=== PATIENT | female | born 1960 | race Caucasian/White ===

== ENCOUNTER 2019-04-14 08:21 | Emergency (ER) | payer MEDICARE, SELFPAY ==
[2019-04-14 08:26] VITALS: BP 159/98; PULSE 87; RESP 16; TEMP 36.8; O2SAT 98; BMI 30.2
[2019-04-14 09:11] VITALS: PULSE 76
--- NOTE | 2019-04-14 09:13 | PC.NURSE ---
Patient states that she fell about 2 months ago and has problems with her upper left ribs posteriorly with pain just below the left scapula. Patient also c/o left shoulder pain with history of torn rotator cuff. Patient describes this as a constant muscle cramp or mel horse. Pain currently rates pain 7/10.
--- NOTE | 2019-04-14 09:18 | PC.NURSE ---
Patient states she occassionally smokes marijuana to help with the pain, this assists better as the stronger narcotic make her ill rather than helping to reduce her pain.
--- NOTE | 2019-04-14 09:19 | PC.NURSE ---
Patient states that she has tried previously prescribed narcotics at home but these only make her sick rather than reducing her pain. She does states she smokes marijuana occasionally and this is the only thing that seems to help so far without causing her to be ill.
[2019-04-14 09:20] VITALS: BP 158/108; PULSE 76; RESP 18
--- NOTE | 2019-04-14 09:22 | XR_ITS ---
WS: [id number] LEFT RIBS, MULTIPLE VIEWS WITH PA CHEST HISTORY: left rib pain, fall 2-3 weeks COMPARISON: 03/20/2019 Lungs and mediastinum: Mild hyperexpansion of the lungs. No pneumothorax or pneumonia. Cardiac silhou ette is moderately enlarged. Prior cardiac valve replacements. RIGHT central line and single lead car diac pacer present. Ribs: No rib fractures or bone destruction identified. XR/XR ribs LT mn 3V w [id number] IMPRESSION: 1. No rib fractures are identified. 2. Cardiomegaly and mild emphysema.
--- NOTE | 2019-04-14 09:23 | ED_ITS ---
HPI - Fall General: Chief Complaint: Extremity Injury, Upper Stated Complaint: fall Time Seen by Provider: 04/14/19 08:26 History of Present Illness: Associated symptoms-after fall: Denies abdominal pain or headache(s) Review of Systems General: Reports: 10 or more systems reviewed and unremarkable except in HPI and below Const: Denies: fever or chills Eyes: Denies: change in vision ENMT: Denies: nasal discharge or facial/sinus pain Card: Denies: palpitations or shortness of breath when lying down Resp: Denies: shortness of breath GI: Denies: abdominal pain : Denies: difficulty urinating Musc: Reports: other (left posterior chest wall pain) Skin/Breast: Denies: rash Neuro: Denies: headache John/Lymph: Denies: easy bleeding PFSH ED PFSH: Statuses (acute, chronic, etc) shown below reflect problem list status as previously entered and may not be historically accurate Social History Smoking and tobacco status: former smoker Physical Exam Const: COMMON NORMALS: no apparent distress GENERAL APPEARANCE: cooperative ORIENTATION/CONSCIOUSNESS: Yes awake, Yes oriented to person and Yes oriented to place HENMT: COMMON NORMALS: normocephalic, EAC's normal and external nose normal HEAD & SCALP: normocephalic FACE & SINUS: normal facial exam NOSE: external nose normal; no nasal discharge EXTERNAL AUDITORY CANAL: EAC's normal THROAT: posterior oropharynx normal Eye: COMMON NORMALS: PERRL and EOMs intact bilaterally PUPIL: Yes PERRL Neck/C-Spine: COMMON NORMALS: full ROM GENERAL: Yes normal visual inspection Chest: COMMONS NORMALS: inspection of chest normal and palpation of chest normal (left mid posterior rib pain) Resp: COMMON NORMALS: normal respiratory effort and clear to auscultation bilaterally AUSCULTATION: clear to auscultation bilaterally Cardio: COMMON NORMALS: regular rate and regular rhythm RATE: regular rate RHYTHM: regular rhythm GI: COMMON NORMALS: normal to inspection, nondistended, normoactive bowel sounds : COMMON NORMALS: Yes no CVA tenderness BLADDER/KIDNEY EXAM: Yes no CVA tenderness Back/Pelvis: COMMON NORMALS: no CVA tenderness THORACIC SPINE/UPPER BACK: No thoracic spinal tenderness Extremity: COMMON NORMALS: normal to inspection Neuro: SENSORIUM/ORIENTATION: Yes oriented to person and Yes oriented to place Psych: COMMON NORMALS: mental status grossly normal Skin: COMMON NORMALS: no rashes or lesions noted GENERAL SKIN EXAM: no rashes or lesions noted Course Vital Signs: Vital signs: Vital Signs Temperature 98.2 F 04/14/19 08:26 Pulse Rate 76 04/14/19 09:20 Respiratory Rate 18 04/14/19 09:20 Blood Pressure 158/108 04/14/19 09:20 Pulse Oximetry 98 04/14/19 08:26 MDM - Fall MDM Narrative: Medical decision making narrative: 58-year-old female comes in today for complaints of left posterior rib pain. Exam notes some tenderness to the left posterior ribs, normal breath sounds, no flailing or subcutaneous crepitus. Differential diagnosis includes compression fracture of spine, ring fracture, pneumothorax, pneumonia. Reviewed exam with patient noting the x-rays were normal. Recommend patient follow-up with primary care or Differential Diagnosis: Fall Differential Diagnosis: Likely compression fracture Discharge Plan Discharge Patient Disposition: Home, Self-Care Prescriptions: No Action metoprolol tartrate 100 mg Tablet 100 mg PO BID RF: 0 [place] 5-325 mg Tablet 1 tab PO Q6H PRN (Reason: Pain) RF: 0 lisinopril 20 mg Tablet 20 mg PO DAILY RF: 0 diltiazem HCl 360 mg Capsule,Extended Release 24 Hr 360 mg PO DAILY RF: 0 Aspir-81 81 mg Tablet,Delayed Release (Dr/Ec) 81 mg PO DAILY RF: 0 warfarin 3 mg Tablet See Rx Instructions .ROUTE .COMPLEX RF: 0 levothyroxine 50 mcg Tablet 50 mcg PO DAILY RF: 0 ibuprofen 600 mg Tablet 600 mg PO Q6H PRN (Reason: Pain) RF: 0 Crestor 10 mg Tablet 10 mg PO DAILY RF: 0 Referrals: Dominick Abernathy MD [Primary Care Provider] - Discharge Diet: Regular Discharge Activity: Resume usual activity Coding Level of Care Code ED Stroke Program Coordinator for Magen Brown Exam Problem Focused
[2019-04-14 10:35] VITALS: RESP 18
== END 2019-04-14 10:35 | disposition home or self-care (01) ==
PROVIDERS: Emergency Provider Nurse Practitioner Family; Family Provider Internal Medicine; PCP Internal Medicine
DX: R07.81 Pleurodynia (principal); Z87.891 Personal history of nicotine dependence
CPT/HCPCS: 71101; 99281

== ENCOUNTER 2019-06-18 10:39 | Emergency (ER) | payer MEDICARE, SELFPAY ==
[2019-06-18 11:03] VITALS: BP 131/86; PULSE 73; RESP 16; TEMP 37.1; O2SAT 99; BMI 31.1
--- NOTE | 2019-06-18 11:16 | ECG_ITS ---
Measurements Intervals [place] Rate: 67 P: ME: 0 QRS: 121 QRSD: 161 T: -25 QT: 443 QTc: 471 ELECTRONIC VENTRICULAR PACEMAKER ABNORMAL RHYTHM ECG Compared to ECG 10/18/2015 14:06:09 Atrial-paced complex(es) or rhythm no longer present ST (T wave) deviation no longer present Electronically Signed On 06-18-2019 19:50:47 CDT by Vladimir Cuellar M.D. [email or web address]
--- NOTE | 2019-06-18 11:16 | CTR_ITS ---
PROCEDURE INFORMATION: Exam: CT Head Without Contrast Exam date and time: 06/18/2019 12:26 PM Age: 58 years old Clinical indication: Dizziness and visual disturbance; Prior surgery; Surgery date: 6+ months; Surgery type: Shunt; Additional info: Symptoms of acute stroke TECHNIQUE: Imaging protocol: Computed tomography of the head without contrast. Total DLP: 778.07 mGy-cm Radiation optimization: All CT scans at this facility use at least one of these dose optimization techniques: automated exposure control; mA and/or kV adjustment per patient size (includes targeted exams where dose is matched to clinical indication); or iterative reconstruction. COMPARISON: CT head wo con* [id number] 01/12/2015 11:13 AM FINDINGS: Limitations: Motion artifact limits the sensitivity of this examination. Brain: There is no acute intracranial hemorrhage. No extra-axial fluid collection. No evidence of acute infarct. Rey white differentiation is intact. There is no evidence of mass. There is no mass effect or midline shift. Ventricles: Unchanged position of right shunt catheter traversing frontal horn of right lateral ventricle and 3rd ventricle with tip at level of suprasellar cistern. Ventricles are stable and nondilated. Bones/joints: No acute fracture. There is right frontal joey hole for the shunt catheter. Sinuses: There is minimal mucosal thickening in inferior aspect of right frontal sinus. Mastoid air cells: No significant mastoid effusion. Soft tissues: Unremarkable as visualized. CT/CT head wo con* [id number] IMPRESSION: No evidence of acute intracranial abnormality. No evidence of acute infarct. No acute hemorrhage. [place] Stroke Program Early CT Score (ASPECTS) = 10. Radiation Dose CTDIVOL = (mGy): DLP = 778.07 (mGy-cm)
--- NOTE | 2019-06-18 12:14 | ED_ITS ---
Entered by Mckayla Willis, acting as scribe for Serafin Brennan DO Jun 18, 2019 10:39 HPI - Neuro Symptoms/Deficit General: Chief Complaint: Neuro Symptoms/Deficit Stated Complaint: DIZZY Time Seen by Provider: 06/18/19 12:42 History of Present Illness: HPI Narrative: 58 yo female presents with dizziness. Pt states that she woke up 5 days ago in the middle of the night with dizziness. Pt states that she has felt like she is drunk. Pt states that this has all been continuous for 5 days. Pt states that she has a shunt in her head and is worried that it is clogged. Pt states that she got bit by a bug about 5 days ago on her low back. Onset (ago): day(s) (5 days) Associated symptoms: Deny chest pain, headache(s), malaise, nausea, syncope, vertigo or vomiting Review of Systems Const: Denies: fever, chills, body aches, fatigue, malaise or night sweats Eyes: Denies: change in vision or blurry vision ENMT: Denies: throat pain, oral sores/lesions, dental pain, nasal discharge or nasal congestion Card: Denies: chest pain, palpitations, irregular heart rhythm, edema, syncope, shortness of breath on exertion, shortness of breath when lying down or leg pain with exertion Resp: Denies: shortness of breath, productive cough, non-productive cough or wheezing GI: Denies: abdominal pain, nausea, vomiting, vomiting blood, coffee grounds in vomit, difficulty swallowing, heartburn/indigestion, diarrhea, constipation, cramping, blood in stool or black tarry stool : Denies: flank pain, painful urination, urinary frequency, urinary urgency, urinary incontinence or blood in urine Musc: Denies: neck pain, back pain, extremity pain, extremity swelling, joint pain or joint swelling Skin/Breast: Denies: rash, itching or redness Neuro: Reports: dizziness; Denies: headache, numbness in extremities, weakness in extremities, changes in sensation, lack of coordination, difficulty walking, frequent falls, vertigo or confusion Psych: Denies: anxiety, depression, loss of interest, visual hallucinations, auditory hallucinations, suicidal ideation or homicidal ideation Endo: Denies: excessive urination, excessive thirst, tired all the time or cold intolerance John/Lymph: Denies: easy bruising, easy bleeding, petechiae, enlarged lymph nodes or tender lymph nodes PFSH ED PFSH: Medical History (Updated 06/18/19 @ 13:38 by Serafin Brennan DO) Afib Cancer of cervix Cardiomyopathy Cervical myopathy CHF (congestive heart failure) Degenerative cervical spinal stenosis Essential (primary) hypertension Hyperlipemia Hypothyroidism Pacemaker Surgical History (Updated 06/18/19 @ 13:14 by Serafin Brennan DO) Aortic valve prosthesis present History of prosthetic tricuspid valve replacement Mitral valve replaced MOSAIC FLOOR LAYER (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) shunt status Social History Smoking and tobacco status: former smoker Alcohol intake: current Physical Exam Const: COMMON NORMALS: average body habitus, oriented x3 and alert GENERAL APPEARANCE: cooperative, comfortable, well kempt and well developed NUTRITIONAL APPEARANCE: obese ORIENTATION/CONSCIOUSNESS: Yes awake, Yes oriented to person and Yes oriented to place HENMT: COMMON NORMALS: normocephalic, head/scalp atraumatic, EAC's normal, TM's normal bilaterally, external nose normal, moist oral mucous membranes and oropharynx normal HEAD & SCALP: normocephalic and atraumatic NOSE: external nose normal EXTERNAL AUDITORY CANAL: EAC's normal TYMPANIC MEMBRANE: TM's normal bilaterally MOUTH: oral and palatal mucosa normal, lip normal and tongue normal THROAT: posterior oropharynx normal and tonsils normal Eye: COMMON NORMALS: PERRL, EOMs intact bilaterally, conjunctivae normal and no scleral icterus CONJUNCTIVA: Yes conjunctivae normal PUPIL: Yes PERRL Neck/C-Spine: COMMON NORMALS: full ROM, no lymphadenopathy, supple, no meningeal signs and thyroid normal THYROID: thyroid normal and asymmetrical Lymph: LYMPHATIC: no lymphadenopathy noted Resp: COMMON NORMALS: normal respiratory effort, no retractions, no use of accessory muscles and clear to auscultation bilaterally AUSCULTATION: clear to auscultation bilaterally Cardio: COMMON NORMALS: regular rate and regular rhythm RATE: regular rate RHYTHM: regular rhythm OTHER: Mechanical heart sounds secondary to multiple mechanical valves aortic mitral and tricuspid GI: COMMON NORMALS: normal to inspection, nondistended, normoactive bowel sounds, soft to palpation and no hepatosplenomegaly PALPATION: Yes soft and Yes no hepatosplenomegaly : COMMON NORMALS: Yes no CVA tenderness BLADDER/KIDNEY EXAM: Yes no CVA tenderness Back/Pelvis: COMMON NORMALS: no CVA tenderness LUMBAR SPINE/LOWER BACK: Yes normal to inspection Extremity: COMMON NORMALS: no clubbing, cyanosis or edema, no calf tenderness and no pedal edema Neuro: COMMON NORMALS: oriented x3 SENSORIUM/ORIENTATION: Yes alert, Yes oriented to person and Yes oriented to place MENINGEAL SIGNS: Yes no meningeal signs Psych: APPEARANCE: Yes well kempt Skin: COMMON NORMALS: no rashes or lesions noted and skin turgor normal GENERAL SKIN EXAM: no rashes or lesions noted and turgor normal Course ED course: Patient is feeling somewhat better will discharge home believe she has a labyrinthitis start meclizine 25 every 6 hours as needed Vital Signs: Vital signs: Vital Signs Temperature 98.7 F 06/18/19 11:03 Pulse Rate 81 06/18/19 13:58 Respiratory Rate 17 06/18/19 13:58 Blood Pressure 131/86 06/18/19 11:03 Pulse Oximetry 96 06/18/19 13:58 MDM - Neuro Symptoms/Deficit Lab Data: Labs: Lab Results 06/18/19 06/18/19 06/18/19 Range/Units 12:05 12:05 12:05 WBC 8.7 (4.0-10.0) 10^3/ uL RBC 4.14 (4.1-5.3) 10^6/u L Hgb 12.4 (11.5-15.3) g/dL Hct 38.7 (37.0-47.0) % MCV 93.5 (81-99) fL MCH 30.0 (28.0-34.0) pg MCHC 32.0 (30.0-36.0) g/dL RDW 14.4 (12.1-15.1) % Plt Count 291 (130-400) 10^3/c mm MPV 10.2 (7.4-10.4) fL Neut % (Auto) 66.8 % Lymph % (Auto) 22.2 % Sunflower % (Auto) 7.7 % Eos % (Auto) 2.0 % Baso % (Auto) 0.8 % Neut # (Auto) 5.8 (1.8-7.7) 10^3/u L Lymph # (Auto) 1.9 (0.8-4.8) 10^3/u L Sunflower # (Auto) 0.7 (0.2-0.9) 10^3/u L Eos # (Auto) 0.2 (0.0-0.8) 10^3/u L Baso # (Auto) 0.1 (0.0-0.1) 10^3/u L Nucleated RBC % (a uto) 0 % Nucleated RBCs # 0.0 /100WBC PT 28.50 H (10.5-13.3) SECO NDS INR 2.57 H (0.8-1.2) APTT 41.2 H (23.9-36.7) SECO NDS Sodium 137 (136-145) mmol/L Potassium 4.1 (3.5-5.1) mmol/L Chloride 100 (98-107) mmol/L Carbon Dioxide 27 (22-29) mmol/L Anion Gap 14.1 (5-19) BUN 16 (8-23) mg/dL Creatinine 0.9 (0.5-0.9) mg/dL GFR Calculation 63.9 L (90-130) mL/min Glucose 85 (65-115) mg/dL Calculated Osmolal ity 280 L (285-295) mOsm/k g Calcium 9.8 (8.5-10.5) mg/dL Total Bilirubin 0.8 (0.15-1.2) mg/dL AST 21 (0-32) U/L ALT 15 (0-33) U/L Alkaline Phosphata se 78 (35-105) IU/L Total Protein 7.3 (6.6-8.7) g/dL Albumin 4.4 (3.5-5.2) g/dL Globulin 2.9 (1.3-4.6) g/dL Urine Color (Yellow) Urine Appearance (CLEAR) Urine pH (5-7) Ur Specific Gravit y (1.005-1.030) Urine Protein (Negative) Urine Glucose (UA) (Normal) Urine Ketones (Negative) Urine Blood (Negative) Urine Nitrate (Negative) Urine Bilirubin (NEGATIVE) Urine Urobilinogen (Negative) mg/dL Ur Leukocyte Alice ase (Negative) Urine Opiates Scre en (Negative) ng/mL Ur Barbiturates Sc reen (Negative) ng/mL Ur Phencyclidine S crn (Negative) ng/mL Ur Amphetamines Sc reen (Negative) ng/mL U Benzodiazepines Scrn (Negative) ng/mL Urine Cocaine Scre en (Negative) ng/mL U Marijuana (THC) Screen (Negative) ng/mL 06/18/19 06/18/19 Range/Units 12:42 12:42 WBC (4.0-10.0) 10^3/ uL RBC (4.1-5.3) 10^6/u L Hgb (11.5-15.3) g/dL Hct (37.0-47.0) % MCV (81-99) fL MCH (28.0-34.0) pg MCHC (30.0-36.0) g/dL RDW (12.1-15.1) % Plt Count (130-400) 10^3/c mm MPV (7.4-10.4) fL Neut % (Auto) % Lymph % (Auto) % Sunflower % (Auto) % Eos % (Auto) % Baso % (Auto) % Neut # (Auto) (1.8-7.7) 10^3/u L Lymph # (Auto) (0.8-4.8) 10^3/u L Sunflower # (Auto) (0.2-0.9) 10^3/u L Eos # (Auto) (0.0-0.8) 10^3/u L Baso # (Auto) (0.0-0.1) 10^3/u L Nucleated RBC % (a uto) % Nucleated RBCs # /100WBC PT (10.5-13.3) SECO NDS INR (0.8-1.2) APTT (23.9-36.7) SECO NDS Sodium (136-145) mmol/L Potassium (3.5-5.1) mmol/L Chloride (98-107) mmol/L Carbon Dioxide (22-29) mmol/L Anion Gap (5-19) BUN (8-23) mg/dL Creatinine (0.5-0.9) mg/dL GFR Calculation (90-130) mL/min Glucose (65-115) mg/dL Calculated Osmolal ity (285-295) mOsm/k g Calcium (8.5-10.5) mg/dL Total Bilirubin (0.15-1.2) mg/dL AST (0-32) U/L ALT (0-33) U/L Alkaline Phosphata se (35-105) IU/L Total Protein (6.6-8.7) g/dL Albumin (3.5-5.2) g/dL Globulin (1.3-4.6) g/dL Urine Color Yellow (Yellow) Urine Appearance Clear (CLEAR) Urine pH 6.5 (5-7) Ur Specific Gravit y 1.015 (1.005-1.030) Urine Protein Neg (Negative) Urine Glucose (UA) Norm (Normal) Urine Ketones Negative (Negative) Urine Blood Neg (Negative) Urine Nitrate Negative (Negative) Urine Bilirubin Neg (NEGATIVE) Urine Urobilinogen Norm (Negative) mg/dL Ur Leukocyte Alice ase Negative (Negative) Urine Opiates Scre en Negative (Negative) ng/mL Ur Barbiturates Sc reen Negative (Negative) ng/mL Ur Phencyclidine S crn Negative (Negative) ng/mL Ur Amphetamines Sc reen Negative (Negative) ng/mL U Benzodiazepines Scrn Negative (Negative) ng/mL Urine Cocaine Scre en Negative (Negative) ng/mL U Marijuana (THC) Screen Positive H (Negative) ng/mL Discharge Plan Discharge Patient Disposition: Home, Self-Care Clinical Impression: Labyrinthitis Condition: Stable Prescriptions: New meclizine 25 mg tablet 25 mg PO QID PRN (Reason: dizziness) Qty: 20 RF: 0 No Action warfarin 1 mg tablet 1 mg PO DAILY RF: 0 Crestor 10 mg tablet 10 mg PO DAILY Qty: 90 RF: 3 metoprolol tartrate 100 mg Tablet 100 mg PO BID RF: 0 lisinopril 20 mg Tablet 20 mg PO DAILY RF: 0 diltiazem HCl 360 mg Capsule,Extended Release 24 Hr 360 mg PO DAILY RF: 0 aspirin [Aspir-81] 81 mg Tablet,Delayed Release (Dr/Ec) 81 mg PO DAILY RF: 0 warfarin 3 mg Tablet See Rx Instructions .ROUTE .COMPLEX RF: 0 levothyroxine 50 mcg Tablet 50 mcg PO DAILY RF: 0 ibuprofen 600 mg Tablet 600 mg PO Q6H PRN (Reason: Pain) RF: 0 Discharge Orders: Discharge Order (Routine); Ordered 06/18/19 Ordered By: Serafin Brennan Referrals: Dominick Abernathy MD [Primary Care Provider] - Discharge Date/Time: 06/18/19 13:59 Coding Level of Care Code ED Machine I Engraver for Chg Fwd Exam Comprehensive The documentation recorded by the Lazaro nieto Kialy, accurately reflects the service I personally performed and the decisions made by Mika loya Curtis L, Jun 18, 2019 10:39
[2019-06-18 12:16] LABS: Basophils # 0.1 10^3/uL (0.0-0.1); Basophils % 0.8 %; Eosinophils # 0.2 10^3/uL (0.0-0.8); Hematocrit 38.7 % (37.0-47.0); Hemoglobin 12.4 g/dL (11.5-15.3); Lymphocytes # 1.9 10^3/uL (0.8-4.8); Lymphocytes % 22.2 %; Mean Corpuscular Volume 93.5 fL (81-99); Mean Platelet Volume 10.2 fL (7.4-10.4); Monocytes # 0.7 10^3/uL (0.2-0.9); Monocytes % 7.7 %; Neutrophils # 5.8 10^3/uL (1.8-7.7); Neutrophils % 66.8 %; Nucleated Red Blood Cells % 0 %; Platelet Count 291 10^3/cmm (130-400); Red Blood Count 4.14 10^6/uL (4.1-5.3); Red Cell Distribution Width 14.4 % (12.1-15.1); White Blood Count 8.7 10^3/uL (4.0-10.0)
[2019-06-18 12:22] VITALS: RESP 18
[2019-06-18 12:27] LABS: INR 2.57 (0.8-1.2)
[2019-06-18 12:28] LABS: Partial Thromboplastin Time 41.2 SECONDS (23.9-36.7)
[2019-06-18 12:33] LABS: Alanine Aminotransferase 15 U/L (0-33); Albumin Level 4.4 g/dL (3.5-5.2); Alkaline Phosphatase 78 IU/L (35-105); Anion Gap 14.1 (5-19); Aspartate Amino Transferase 21 U/L (0-32); Blood Urea Nitrogen 16 mg/dL (8-23); Calcium 9.8 mg/dL (8.5-10.5); Carbon Dioxide 27 mmol/L (22-29); Chloride 100 mmol/L (98-107); Globulin 2.9 g/dL (1.3-4.6); Glomerular Filtration Rate 63.9 mL/min (90-130); Glucose 85 mg/dL (65-115); Osmolality Calculated 280 mOsm/kg (285-295); Potassium 4.1 mmol/L (3.5-5.1); Sodium 137 mmol/L (136-145); Total Bilirubin 0.8 mg/dL (0.15-1.2); Total Protein 7.3 g/dL (6.6-8.7)
[2019-06-18 12:58] LABS: Add Urine Microscopic? NO
[2019-06-18 13:02] LABS: Urine Appearance Clear (CLEAR); Urine Color Yellow (Yellow); pH Urine 6.5 (5-7)
[2019-06-18 13:03] LABS: Bilirubin Urine Neg (NEGATIVE); Blood Urine Neg (Negative); Glucose Urine UA Norm (Normal); Ketones Urine Negative (Negative); Leukocyte Esterase Urine Negative (Negative); Nitrate Urine Negative (Negative); Protein Urine Neg (Negative); Specific Gravity, Urine 1.015 (1.005-1.030); Urobilinogen Urine Norm (Negative)
[2019-06-18 13:09] LABS: Amphetamines Screen Urine Negative (Negative); Barbiturates Screen Urine Negative (Negative); Benzodiazepines Screen Urine Negative (Negative); Cocaine Screen Urine Negative (Negative); Opiate Screen Urine Negative (Negative); PCP Screen Urine Negative (Negative); THC Screen Urine Positive (Negative)
[2019-06-18 13:58] VITALS: PULSE 81; RESP 17; O2SAT 96
== END 2019-06-18 13:59 | disposition home or self-care (01) ==
PROVIDERS: Emergency Medicine; Emergency Provider Family Medicine; Family Provider Internal Medicine; PCP Internal Medicine
DX: H83.09 Labyrinthitis, unspecified ear (principal); I48.91 Unspecified atrial fibrillation; I42.9 Cardiomyopathy, unspecified; I11.0 Hypertensive heart disease with heart failure; I50.9 Heart failure, unspecified; E78.5 Hyperlipidemia, unspecified; E03.9 Hypothyroidism, unspecified; E66.9 Obesity, unspecified; Z68.31 Body mass index [BMI] 31.0-31.9, adult; Z79.01 Long term (current) use of anticoagulants; Z87.891 Personal history of nicotine dependence; Z95.0 Presence of cardiac pacemaker; Z95.2 Presence of prosthetic heart valve; Z98.2 Presence of cerebrospinal fluid drainage device
CPT/HCPCS: 12345; 36415; 70450; 80053; 80307; 81003; 85025; 85610; 85730; 93005; 99283; 99284

== ENCOUNTER 2019-06-20 10:10 | Emergency (ER) | payer MEDICARE, SELFPAY ==
[2019-06-20 10:20] VITALS: BP 137/82; PULSE 71; RESP 16; TEMP 36.6; O2SAT 97; BMI 31.1
--- NOTE | 2019-06-20 10:30 | XR_ITS ---
WS: [id number] Right hand, 3 views, 06/20/2019 Clinical Data: trauma Comparison: Right hand, 01/28/2019. Findings: There is a comminuted fracture of the distal portion of the right fifth metacarpal with ventral angu lation. The remainder the metacarpals is normal. The phalanges and carpal bones are unremarkable. The re is soft tissue swelling over the fracture site. XR/XR hand RT min 3V* [id number] Impression: Fracture of distal right fifth metacarpal.
--- NOTE | 2019-06-20 10:31 | ED_ITS ---
HPI - Extremity Problem General: Chief complaint: Extremity Injury, Upper Stated complaint: pinky finger on right hand Time Seen by Provider: 06/20/19 10:11 History of Present Illness: HPI Narrative: Patient states that she take a rolled up newspaper was trying to SWAT her dog last night and she hit a hard object with the side of her right hand and now she has pain swelling limited range of motion MD Complaint: extremity pain and extremity swelling Onset (ago): hour(s) Pain Consistency: constant Location: right and upper extremity Severity scale (1-10): 5 Quality: aching Radiation: proximal Relieving factors: immobilization Exacerbating factors: range of motion Associated symptoms: Reports no associated symptoms; Deny chest pain, fever(s) or rash Review of Systems Const: Denies: fever, chills or body aches Eyes: Denies: change in vision or blurry vision ENMT: Denies: throat pain or nasal congestion Card: Denies: chest pain or shortness of breath on exertion Resp: Denies: shortness of breath, productive cough or non-productive cough GI: Denies: abdominal pain, nausea or vomiting Musc: Reports: extremity pain (Right hand medial aspect base of the pinky finger), extremity swelling and limited range of motion Skin/Breast: Denies: rash Neuro: Denies: headache Psych: Denies: anxiety or depression John/Lymph: Denies: easy bruising PFSH ED PFSH: Medical History (Updated 06/18/19 @ 13:38 by Serafin Brennan DO) Afib Cancer of cervix Cardiomyopathy Cervical myopathy CHF (congestive heart failure) Degenerative cervical spinal stenosis Essential (primary) hypertension Hyperlipemia Hypothyroidism Pacemaker Surgical History (Updated 06/18/19 @ 13:14 by Serafin Brennan DO) Aortic valve prosthesis present History of prosthetic tricuspid valve replacement Mitral valve replaced SURGICAL SERVICES ASSISTANT (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) shunt status Social History Smoking and tobacco status: former smoker Alcohol intake: current Physical Exam Const: COMMON NORMALS: no apparent distress, average body habitus and oriented x3 HENMT: COMMON NORMALS: normocephalic HEAD & SCALP: normal to inspection and normocephalic FACE & SINUS: normal facial exam Eye: COMMON NORMALS: conjunctivae normal GENERAL EYE: normal appearance of both eyes CONJUNCTIVA: Yes conjunctivae normal Neck/C-Spine: COMMON NORMALS: no JVD Chest: COMMONS NORMALS: inspection of chest normal Resp: COMMON NORMALS: normal respiratory effort and clear to auscultation bilaterally AUSCULTATION: clear to auscultation bilaterally Cardio: COMMON NORMALS: no JVD, regular rate and regular rhythm RATE: regular rate RHYTHM: regular rhythm GI: COMMON NORMALS: normal to inspection, nondistended, normoactive bowel sounds Extremity: COMMON NORMALS: normal to inspection and full ROM RIGHT UPPER EXTREMITY: Yes hand & digits (Right hand swollen and about the fifth metacarpal limited range of motion of the fifth finger tenderness to the phalangeal metacarpal joint does have some bruising and about the hand and the wrist. No wrist pain) Neuro: COMMON NORMALS: oriented x3 Course Vital Signs: Vital signs: Vital Signs Temperature 98 F 06/20/19 10:20 Pulse Rate 71 06/20/19 10:20 Respiratory Rate 16 06/20/19 10:20 Blood Pressure 137/82 06/20/19 10:20 Pulse Oximetry 97 06/20/19 10:20 Discharge Plan Discharge Prescriptions: No Action warfarin 1 mg tablet 1 mg PO DAILY RF: 0 Crestor 10 mg tablet 10 mg PO DAILY Qty: 90 RF: 3 metoprolol tartrate 100 mg Tablet 100 mg PO BID RF: 0 lisinopril 20 mg Tablet 20 mg PO DAILY RF: 0 diltiazem HCl 360 mg Capsule,Extended Release 24 Hr 360 mg PO DAILY RF: 0 aspirin [Aspir-81] 81 mg Tablet,Delayed Release (Dr/Ec) 81 mg PO DAILY RF: 0 warfarin 3 mg Tablet See Rx Instructions .ROUTE .COMPLEX RF: 0 levothyroxine 50 mcg Tablet 50 mcg PO DAILY RF: 0 ibuprofen 600 mg Tablet 600 mg PO Q6H PRN (Reason: Pain) RF: 0 meclizine 25 mg tablet 25 mg PO QID PRN (Reason: dizziness) Qty: 20 RF: 0 Coding Level of Care Code ED Drug Safety Coordinator for Magen Brown
--- NOTE | 2019-06-20 12:04 | PC.NURSE ---
patient splinted with ulna splint, patient tolerated well
[2019-06-20 12:11] VITALS: BP 134/79; PULSE 69; RESP 18; O2SAT 97
--- NOTE | 2019-06-20 13:28 | DCPLANNER ---
distribution operations manager was asked to schedule a follow up appointment for patient with ortho. distribution operations manager called the ortho clinic, spoke with Yessy, gave clinic patients information. distribution operations manager was told that patients information would be printed and reviewed. Clinic will call child welfare caseworker and patient with appointment information.
--- NOTE | 2019-06-21 09:27 | DCPLANNER ---
Patient has a follow up appointment scheduled for Friday, June 21, 2019 at 1:[address] Robledo. Clinic will call patient with appointment information.
--- NOTE | 2019-06-22 10:15 | DCPLANNER ---
Patient did attend appointment scheduled for 06.21.19 with ortho.
== END 2019-06-20 12:14 | disposition home or self-care (01) ==
PROVIDERS: Emergency Provider Nurse Practitioner Family; Family Provider Internal Medicine; PCP Internal Medicine
DX: S60.221A Contusion of right hand, initial encounter (principal); S60.211A Contusion of right wrist, initial encounter; M79.644 Pain in right finger(s); R22.31 Localized swelling, mass and lump, right upper limb; I48.91 Unspecified atrial fibrillation; I11.0 Hypertensive heart disease with heart failure; I50.9 Heart failure, unspecified; E78.5 Hyperlipidemia, unspecified; E03.9 Hypothyroidism, unspecified; Z87.891 Personal history of nicotine dependence; Z95.2 Presence of prosthetic heart valve; Z95.0 Presence of cardiac pacemaker; Z79.01 Long term (current) use of anticoagulants; W22.8XXA Striking against or struck by other objects, initial encounter
CPT/HCPCS: 12345; 73130; 99281; 99283

== ENCOUNTER 2019-06-21 14:56 | Outpatient (CLI) | payer MEDICARE, SELFPAY | END 2019-06-21 14:57 | disposition home or self-care (01) | LOC: SPT 14:56 | PROVIDERS: Family Provider Internal Medicine; PCP Internal Medicine; Visit Provider Specialist | DX: Z46.89 Encounter for fitting and adjustment of other specified devices (principal); S62.356D Nondisplaced fracture of shaft of fifth metacarpal bone, right hand, subsequent encounter for fracture with routine healing; X58.XXXD Exposure to other specified factors, subsequent encounter | CPT/HCPCS: L3918 ==

== ENCOUNTER 2019-08-14 10:08 | Emergency (ER) | payer MEDICARE, SELFPAY ==
[2019-08-14 10:13] VITALS: BP 154/91; PULSE 90; RESP 16; TEMP 36.8; O2SAT 97; BMI 33.0
--- NOTE | 2019-08-14 10:37 | CT_ITS ---
WS: [id number] CT abdomen pelvis w con* [id number] REASON FOR EXAM: abd pain IV CONTRAST ADMINISTERED: Omni 395 cc. TOTAL EXAM DLP: 997.[address] scans at [facility] use at least one of these dose optimization techniques: automat ed exposure control; mA and/or kV adjustment per patient size (includes targeted exams where dose is matched to clinical indication); or iterative reconstruction. FINDINGS: Diastases recti is seen in the lower chest midline. The paraumbilical area shows large herniation similar to the previous exam with a nodular density in the hernia similar to that previous exam exposed 02/13/2018. The gallbladder is been removed comparison to the previous exam the common bile duct is mildly dilate d down to the head of the pancreas. This measured 1.9 cysts centimeters. Mass is not seen in the sphi ncter of John area but there is marked dilatation a consideration MRCP evaluated with weight these ch anges further is recommended. The pancreas shows mild atrophy. Arteriosclerotic changes in the pancre atic arteries are seen. The liver appears to be normal. No dilatation of the ductal system is seen in the liver. The adrenal glands are both normal. 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 The aorta inferior vena cava are normal. [place] the spleen show no abnormality The lumbar spine and pelvis appear to be essentially normal. The pelvis itself show normal large bowel the bladder is somewhat contracted but appear to be slightl y thickened wall. CT/CT abdomen pelvis w con* [id number] IMPRESSION: Multiple ventral and periumbilical abdominal wall hernias. With no obstruction. There is evidence of fat in the hernias. Horseshoe kidneys The common bile duct is markedly dilated increased and increase in size since p revious exam we do not noted an obstructing lesion but would recommend an MRCP for further evaluation.
--- NOTE | 2019-08-14 10:39 | W.ED.ABDPA2 ---
HPI - Abdominal Pain General: Chief Complaint: Abdominal Pain Stated Complaint: ABD PAIN Time Seen by Provider: 08/14/19 10:17 History of Present Illness: HPI narrative: 58-year-old female presents with complaints of abdominal pain. She says today she said she was working on the back of her truck she slipped off the edge of the tailgate getting down when she landed on her feet she kind of jolted and felt a tearing sensation in her abdomen. The rest of the day she seemed okay but then this morning she said she is noticed black stools she had thought last night she was constipated with the abdominal discomfort and took some MiraLAX he denies taking anything else. She is on Coumadin because of several cardiac valvuloplasty she has had she cites an aortic and mitral valve states she has had a third valve as well not sure if it is correct tricuspid valve. She also reports a low-grade temp. She denies any respiratory difficulty. She has had multiple previous abdominal wall hernias, incisional and umbilical and she still does have an umbilical hernia. She denies dysuria urgency or frequency. MD elicited complaint: abdominal pain Pertinent past history: constipation Onset (ago): hour(s) (12-15) Pain Consistency: constant Location: Periumbilical Severity: moderate Quality: cramping Radiation: none Migration to: no migration Exacerbating factors: movement Relieving factors: rest Associated Symptoms: Reports anorexia, bloating, constipation and other (Black stools); Denies chills, diarrhea, dyspepsia, dysuria, fever(s), fecal incontinence, loose stools, melena and nausea Review of Systems Const: Denies: fever, chills, body aches, change in appetite, fatigue or malaise ENMT: Denies: throat pain, ear pain, nasal discharge or nasal congestion Card: Denies: chest pain, edema, shortness of breath on exertion or shortness of breath when lying down Resp: Denies: shortness of breath, productive cough or non-productive cough GI: Reports: abdominal pain, constipation, bloating and other (Black stools); Denies: nausea, diarrhea, fecal incontinence or black tarry stool : Denies: flank pain, difficulty urinating, painful urination, urinary frequency or urinary urgency Skin/Breast: Denies: rash or itching PFSH ED PFSH: Medical History (Updated 08/14/19 @ 13:42 by Serafin Brennan DO) Afib Cancer of cervix Cardiomyopathy Cervical myopathy CHF (congestive heart failure) Degenerative cervical spinal stenosis Essential (primary) hypertension Hyperlipemia Hypothyroidism Pacemaker Surgical History (Updated 08/14/19 @ 13:04 by Serafin Brennan DO) Aortic valve prosthesis present History of prosthetic tricuspid valve replacement Mitral valve replaced S/P cholecystectomy GAMING PIT BOSS (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) shunt status Social History Smoking and tobacco status: former smoker Alcohol intake: current Physical Exam Const: COMMON NORMALS: no apparent distress GENERAL APPEARANCE: cooperative and comfortable ORIENTATION/CONSCIOUSNESS: Yes awake, Yes oriented to person, Yes oriented to place and Yes oriented to time HENMT: COMMON NORMALS: normocephalic, head/scalp atraumatic, hearing grossly normal bilaterally, external ears normal, EAC's normal, TM's normal bilaterally, nasal mucous membranes and turbinates normal, moist oral mucous membranes and oropharynx normal HEAD & SCALP: normocephalic and atraumatic NOSE: nasal mucous membranes and turbinates normal EXTERNAL EAR: Yes external ears normal EXTERNAL AUDITORY CANAL: EAC's normal TYMPANIC MEMBRANE: TM's normal bilaterally Eye: COMMON NORMALS: PERRL, EOMs intact bilaterally, conjunctivae normal and no scleral icterus CONJUNCTIVA: Yes conjunctivae normal PUPIL: Yes PERRL Neck/C-Spine: COMMON NORMALS: full ROM, no lymphadenopathy, supple and no JVD Lymph: LYMPHATIC: no lymphadenopathy noted and no lymphedema noted Resp: COMMON NORMALS: normal respiratory effort, no retractions, no use of accessory muscles and clear to auscultation bilaterally AUSCULTATION: clear to auscultation bilaterally Cardio: COMMON NORMALS: no JVD, regular rate, regular rhythm and no murmurs RATE: regular rate RHYTHM: regular rhythm GI: COMMON NORMALS: soft to palpation and no hepatosplenomegaly AUSCULTATION: Yes normoactive bowel sounds PALPATION: Yes soft, Yes tender (Tenderness of the umbilicus with an incarcerated umbilical hernia attempt to reduce incurred more pain without successful reduction of the hernia.), No guarding and Yes no hepatosplenomegaly Extremity: COMMON NORMALS: normal to inspection, normal capillary refill, no clubbing, cyanosis or edema, no calf tenderness and no pedal edema Neuro: SENSORIUM/ORIENTATION: Yes oriented to person, Yes oriented to place and Yes oriented to time Skin: COMMON NORMALS: no rashes or lesions noted GENERAL SKIN EXAM: no rashes or lesions noted Course Vital Signs: Vital signs: Vital Signs Temperature 98.2 F 08/14/19 10:13 Pulse Rate 87 08/14/19 14:07 Respiratory Rate 16 08/14/19 14:07 Blood Pressure 111/52 08/14/19 14:07 Pulse Oximetry 97 08/14/19 14:07 MDM - Abdominal Pain MDM Narrative: Medical decision making narrative: Patient's hernia is unremarkable unless it has manipulated think it is chronic there is no evidence of any acute ischemic or gangrene it only becomes painful when I attempted to reduce it. She generally otherwise is feeling good any case more constipated than anything at this point she does have Gilbert syndrome as well we will go and have him use mag citrate to relieve his constipation however follow-up with primary care doctor in the next 3 to 4 days. If symptoms persist or worsen recheck Lab Data: Labs: Lab Results 08/14/19 08/14/19 08/14/19 Range/Units 10:45 10:45 10:45 WBC 12.8 H (4.0-10.0) 10^3/ uL RBC 4.15 (4.1-5.3) 10^6/u L Hgb 13.2 (11.5-15.3) g/dL Hct 39.7 (37.0-47.0) % MCV 95.7 (81-99) fL MCH 31.8 (28.0-34.0) pg MCHC 33.2 (30.0-36.0) g/dL RDW 12.7 (12.1-15.1) % Plt Count 279 (130-400) 10^3/c mm MPV 10.3 (7.4-10.4) fL Neut % (Auto) 84.6 % Lymph % (Auto) 8.1 % [place] % (Auto) 6.0 % Eos % (Auto) 0.6 % Baso % (Auto) 0.2 % Neut # (Auto) 10.8 H (1.8-7.7) 10^3/u L Lymph # (Auto) 1.0 (0.8-4.8) 10^3/u L [place] # (Auto) 0.8 (0.2-0.9) 10^3/u L Eos # (Auto) 0.1 (0.0-0.8) 10^3/u L Baso # (Auto) 0.0 (0.0-0.1) 10^3/u L Nucleated RBC % (a uto) 0 % Nucleated RBCs # 0.0 /100WBC PT 18.90 H (10.5-13.3) SECO NDS INR 1.53 H (0.8-1.2) APTT 33.6 (23.9-36.7) SECO NDS Sodium 137 (136-145) mmol/L Potassium 3.4 L (3.5-5.1) mmol/L Chloride 104 (98-107) mmol/L Carbon Dioxide 20 L (22-29) mmol/L Anion Gap 16.4 (5-19) BUN 13 (8-23) mg/dL Creatinine 0.8 (0.5-0.9) mg/dL GFR Calculation 73.2 L (90-130) mL/min Glucose 184 H (65-115) mg/dL Calculated Osmolal ity 285 (285-295) mOsm/k g Calcium 9.5 (8.5-10.5) mg/dL Total Bilirubin 1.9 H (0.15-1.2) mg/dL AST 18 (0-32) U/L ALT 11 (0-33) U/L Alkaline Phosphata se 93 (35-105) IU/L Total Protein 7.3 (6.6-8.7) g/dL Albumin 4.5 (3.5-5.2) g/dL Globulin 2.8 (1.3-4.6) g/dL Lipase 19 (13-60) U/L Urine Color (Yellow) Urine Appearance (CLEAR) Urine pH (5-7) Ur Specific Gravit y (1.005-1.030) Urine Protein (Negative) Urine Glucose (UA) (Normal) Urine Ketones (Negative) Urine Blood (Negative) Urine Nitrate (Negative) Urine Bilirubin (NEGATIVE) Urine Urobilinogen (Negative) mg/dL Ur Leukocyte [place] a[place] (Negative) Urine RBC (0-2) /hpf Urine WBC (0-5) /hpf Ur Squamous Epith Cells (0-5) Urine Bacteria (NONE) Hyaline Casts Urine Mucus 08/14/19 Range/Units 11:05 WBC (4.0-10.0) 10^3/ uL RBC (4.1-5.3) 10^6/u L Hgb (11.5-15.3) g/dL Hct (37.0-47.0) % MCV (81-99) fL MCH (28.0-34.0) pg MCHC (30.0-36.0) g/dL RDW (12.1-15.1) % Plt Count (130-400) 10^3/c mm MPV (7.4-10.4) fL Neut % (Auto) % Lymph % (Auto) % [place] % (Auto) % Eos % (Auto) % Baso % (Auto) % Neut # (Auto) (1.8-7.7) 10^3/u L Lymph # (Auto) (0.8-4.8) 10^3/u L [place] # (Auto) (0.2-0.9) 10^3/u L Eos # (Auto) (0.0-0.8) 10^3/u L Baso # (Auto) (0.0-0.1) 10^3/u L Nucleated RBC % (a uto) % Nucleated RBCs # /100WBC PT (10.5-13.3) SECO NDS INR (0.8-1.2) APTT (23.9-36.7) SECO NDS Sodium (136-145) mmol/L Potassium (3.5-5.1) mmol/L Chloride (98-107) mmol/L Carbon Dioxide (22-29) mmol/L Anion Gap (5-19) BUN (8-23) mg/dL Creatinine (0.5-0.9) mg/dL GFR Calculation (90-130) mL/min Glucose (65-115) mg/dL Calculated Osmolal ity (285-295) mOsm/k g Calcium (8.5-10.5) mg/dL Total Bilirubin (0.15-1.2) mg/dL AST (0-32) U/L ALT (0-33) U/L Alkaline Phosphata se (35-105) IU/L Total Protein (6.6-8.7) g/dL Albumin (3.5-5.2) g/dL Globulin (1.3-4.6) g/dL Lipase (13-60) U/L Urine Color Yellow (Yellow) Urine Appearance Sl hazy (CLEAR) Urine pH 5 (5-7) Ur Specific Gravit y 1.025 (1.005-1.030) Urine Protein Trace (Negative) Urine Glucose (UA) Norm (Normal) Urine Ketones Negative (Negative) Urine Blood 3+ H (Negative) Urine Nitrate Negative (Negative) Urine Bilirubin 1+ H (NEGATIVE) Urine Urobilinogen 1 H (Negative) mg/dL Ur Leukocyte [place] Negative (Negative) Urine RBC 5-10 H (0-2) /hpf Urine WBC 0-4 H (0-5) /hpf Ur Squamous Epith Cells 0-4 H (0-5) Urine Bacteria 2+ H (NONE) Hyaline Casts 0-4 H Urine Mucus 2+ Discharge Plan Discharge Patient Disposition: Home, Self-Care Clinical Impression: Hernia, umbilical, Hypokalemia, Gilbert syndrome, Constipation, Heme positive stool Condition: Stable Prescriptions: New magnesium citrate Solution 150 ml PO DAILY PRN (Reason: constipation) Qty: 296 RF: 0 No Action (DME) [place] Qty: 1 RF: 0 Crestor 10 mg tablet 10 mg PO DAILY Qty: 90 RF: 3 diltiazem HCl 360 mg capsule,extended release 24 hr 360 mg PO DAILY Qty: 90 RF: 3 levothyroxine 50 mcg tablet 50 mcg PO DAILY Qty: 90 RF: 0 lisinopril 20 mg tablet 20 mg PO DAILY Qty: 90 RF: 3 metoprolol tartrate 100 mg Tablet 100 mg PO BID RF: 0 aspirin [Aspir-81] 81 mg Tablet,Delayed Release (Dr/Ec) 81 mg PO DAILY RF: 0 ibuprofen 600 mg Tablet 600 mg PO Q6H PRN (Reason: Pain) RF: 0 warfarin 1 mg tablet See Rx Instructions .ROUTE .COMPLEX RF: 0 Discharge Orders: Discharge Order (Routine); Ordered 08/14/19 Ordered By: Serafin Brennan Referrals: Dominick Abernathy MD [Primary Care Provider] - Discharge Diet: Clear Liquid Discharge Activity: Resume usual activity Discharge Date/Time: 08/14/19 14:11 Coding Level of Care Code ED Back Shoe Cutter for Chg Fwd Exam Comprehensive
[2019-08-14 11:01] VITALS: RESP 16
[2019-08-14] MEDS: ondansetron 2 mg/ML SDV 2 mL 4 MG IVP (11:01)
[2019-08-14] MEDS: morphine 4 mg/mL SDV 1 mL IVP (11:01)
[2019-08-14 11:03] LABS: Basophils % 0.2 %; Eosinophils # 0.1 10^3/uL (0.0-0.8); Eosinophils % 0.6 %; Hematocrit 39.7 % (37.0-47.0); Hemoglobin 13.2 g/dL (11.5-15.3); Lymphocytes % 8.1 %; Mean Corpuscular HGB Conc 33.2 g/dL (30.0-36.0); Mean Corpuscular Hemoglobin 31.8 pg (28.0-34.0); Mean Corpuscular Volume 95.7 fL (81-99); Mean Platelet Volume 10.3 fL (7.4-10.4); Monocytes # 0.8 10^3/uL (0.2-0.9); Neutrophils # 10.8 10^3/uL (1.8-7.7); Neutrophils % 84.6 %; Nucleated Red Blood Cells % 0 %; Platelet Count 279 10^3/cmm (130-400); Red Blood Count 4.15 10^6/uL (4.1-5.3); Red Cell Distribution Width 12.7 % (12.1-15.1); White Blood Count 12.8 10^3/uL (4.0-10.0)
[2019-08-14 11:20] LABS: Alanine Aminotransferase 11 U/L (0-33); Albumin Level 4.5 g/dL (3.5-5.2); Alkaline Phosphatase 93 IU/L (35-105); Anion Gap 16.4 (5-19); Aspartate Amino Transferase 18 U/L (0-32); Blood Urea Nitrogen 13 mg/dL (8-23); Calcium 9.5 mg/dL (8.5-10.5); Carbon Dioxide 20 mmol/L (22-29); Chloride 104 mmol/L (98-107); Globulin 2.8 g/dL (1.3-4.6); Glomerular Filtration Rate 73.2 mL/min (90-130); Glucose 184 mg/dL (65-115); Lipase 19 U/L (13-60); Osmolality Calculated 285 mOsm/kg (285-295); Potassium 3.4 mmol/L (3.5-5.1); Sodium 137 mmol/L (136-145); Total Bilirubin 1.9 mg/dL (0.15-1.2); Total Protein 7.3 g/dL (6.6-8.7)
[2019-08-14 11:40] LABS: INR 1.53 (0.8-1.2)
[2019-08-14 11:41] LABS: Partial Thromboplastin Time 33.6 SECONDS (23.9-36.7)
[2019-08-14 11:46] LABS: Add Urine Microscopic? YES; Bilirubin Urine 1+ (NEGATIVE); Blood Urine 3+ (Negative); Glucose Urine UA Norm (Normal); Ketones Urine Negative (Negative); Leukocyte Esterase Urine Negative (Negative); Nitrate Urine Negative (Negative); Protein Urine Trace (Negative); Specific Gravity, Urine 1.025 (1.005-1.030); Urine Appearance SL Hazy (CLEAR); Urine Color Yellow (Yellow); Urobilinogen Urine 1 mg/dL (Negative); pH Urine 5 (5-7)
[2019-08-14 11:47] LABS: Hyaline Casts Urine 0-4; Mucus Urine 2+
[2019-08-14 11:48] LABS: Add Urine Culture? Yes; Bacteria Urine 2+; Squamous Epithelial Cell Urine 0-4 (0-5); WBC Urine 0-4 /hpf (0-5)
[2019-08-14] MEDS: iohexol 300 mg/mL 100 mL Btl IV (11:51)
--- NOTE | 2019-08-14 12:18 | PC.NURSE ---
patient is waiting for transport
[2019-08-14] MEDS: potassium chloride oral liq 20 mEq/15 mL UDC 40 MEQ PO (13:58)
[2019-08-14 14:07] VITALS: BP 111/52; PULSE 87; RESP 16; O2SAT 97
== END 2019-08-14 14:11 | disposition home or self-care (01) ==
PROVIDERS: Emergency Provider Family Medicine; Family Provider Internal Medicine; PCP Internal Medicine
DX: K42.9 Umbilical hernia without obstruction or gangrene (principal); E87.6 Hypokalemia; E80.4 Gilbert syndrome; K59.00 Constipation, unspecified; Z79.82 Long term (current) use of aspirin; Z79.01 Long term (current) use of anticoagulants; Z08 Encounter for follow-up examination after completed treatment for malignant neoplasm; Z85.41 Personal history of malignant neoplasm of cervix uteri; I11.0 Hypertensive heart disease with heart failure; I50.9 Heart failure, unspecified; E78.5 Hyperlipidemia, unspecified; Z95.0 Presence of cardiac pacemaker; E03.9 Hypothyroidism, unspecified; Z87.891 Personal history of nicotine dependence
CPT/HCPCS: 12345; 74177; 80053; 81001; 83690; 85025; 85610; 85730; 87086; 96374; 96375; 99282; 99284; J2270; J2405; Q9967

== ENCOUNTER 2019-09-10 13:30 | Emergency (ER) | payer MEDICARE, SELFPAY ==
[2019-09-10 13:39] VITALS: BP 148/97; RESP 81; O2SAT 96; BMI 33.0
--- NOTE | 2019-09-10 13:49 | W.ED.EXTPRO ---
HPI - Extremity Problem General: Chief complaint: Extremity Injury, Lower Stated complaint: left ankle injury Time Seen by Provider: 09/10/19 13:37 History of Present Illness: HPI Narrative: Patient is a 58-year-old female comes to the ED with left lower leg injury. Patient states 3 days ago she was climbing out of her truck and her foot slipped and her left walker impacted metal step rail of vehicle. Patient states she had an abrasion after injury. She is still feeling quite a bit of tenderness and pain on left lower leg and wanted to come to the ED to check to see if she might of fractured a bone. Patient has been taking ibuprofen up with pain. Patient is up-to-date on her tetanus. Associated symptoms: Deny chest pain, fever(s) or rash Review of Systems Const: Denies: fever(s), chills or fatigue Eyes: Denies: change in vision or eye discomfort ENMT: Denies: throat pain, odynophagia, nasal discharge or nasal congestion Card: Denies: chest pain, palpitations, edema, swelling of feet/ankles, dyspnea on exertion or orthopnea Resp: Denies: dyspnea, productive cough or non-productive cough GI: Denies: abdominal pain, nausea, vomiting, diarrhea, constipation or hematochezia : Denies: flank pain, dysuria or hematuria Musc: Reports: extremity pain; Denies: neck pain, back pain or extremity swelling Skin/Breast: Reports: new lesions (Superficial abrasion left anterior part of walker. ); Denies: rash Neuro: Denies: headache(s), numbness in extremities or weakness in extremities PFS ED PFSH: Medical History Afib Cancer of cervix Cardiomyopathy Cervical myopathy CHF (congestive heart failure) Degenerative cervical spinal stenosis Essential (primary) hypertension Hyperlipemia Hypothyroidism Pacemaker Surgical History Aortic valve prosthesis present History of prosthetic tricuspid valve replacement Mitral valve replaced S/P cholecystectomy ORTHOTIC/PROSTHETIC PRACTITIONER (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) shunt status Social History Smoking and tobacco status: never smoked Alcohol intake: current Physical Exam Const: COMMON NORMALS: no acute distress, patient oriented x3 and alert GENERAL APPEARANCE: cooperative and comfortable HENMT: COMMON NORMALS: normocephalic HEAD & SCALP: normocephalic MOUTH: Normal oral and palatal mucosa present THROAT: posterior oropharynx normal and uvula midline Neck/C-Spine: COMMON NORMALS: supple GENERAL: Yes normal visual inspection Resp: COMMON NORMALS: normal respiratory effort, No retractions, No use of accessory muscles and clear to auscultation bilaterally AUSCULTATION: clear to auscultation bilaterally Cardio: COMMON NORMALS: regular rate, regular rhythm, S1 normal heart sound present, S2 normal heart sound present, No gallops present (Cardio), No clicks present (Cardio), No murmurs present (Cardio) and Peripheral pulses 2+ throughout RATE: regular rate RHYTHM: regular rhythm HEART SOUNDS: S1 normal heart sound present and S2 normal heart sound present PERIPHERAL PULSES: Peripheral pulses 2+ throughout GI: COMMON NORMALS: Normal to inspection, nondistended, normoactive bowel sounds present, Soft to palpation, non-tender and no masses PALPATION: Yes Soft to palpation : COMMON NORMALS: Yes no CVA tenderness BLADDER/KIDNEY EXAM: Yes no CVA tenderness Back/Pelvis: COMMON NORMALS: no CVA tenderness Extremity: GENERAL: Yes normal exam except as noted LEFT LOWER EXTREMITY: Yes lower leg Left lower leg: Yes inspection (Superficial abrasion on left anterior part of lower leg it is already healing and not actively open or bleeding. No warmth or erythema ), Yes palpation (Moderate tenderness over abrasion area.) and Yes neurovascular exam (Intact-pedal pulse was 2+) Neuro: COMMON NORMALS: patient oriented x3 and moves all extremities SENSORIUM/ORIENTATION: Yes alert Skin: GENERAL SKIN EXAM: dry skin TRAUMA: abrasion (Left lower leg superficial abrasion that is already beyond the healing process. It is not open or actively bleeding.) Course Vital Signs: Vital signs: Vital Signs Pulse Rate 62 09/10/19 14:39 Respiratory Rate 18 09/10/19 14:39 Blood Pressure 125/73 09/10/19 14:39 Pulse Oximetry 97 09/10/19 14:39 MDM - Extremity (Nontraumatic) MDM Narrative: Medical decision making narrative: Patient is a 58-year-old female who comes to the ED with left walker pain after left leg struck metal step up bar on truck. He came to the ED to be evaluated for possible fracture of left lower leg. Physical exam showed an abrasion that was already healing and there is some tenderness upon palpation of that area. X-ray of left tib-fib showed no acute fractures. Patient was diagnosed with contusion and told to ice, rest and elevate left leg to help with pain and swelling. Follow-up with PCP in 7 to 10 days. Patient understood and agreed with plan. Imaging Data^: Xray Ortho: Attestation: I personally reviewed and interpreted this imaging study as follows: My impression: No acute findings seen on left tib-fib x-ray. Radiologist's impression: [address] [address] XRay Report Signed Patient: Maryuri Abernathy Unit #: [id number] : 1960 Age/Sex: 58 / F ADM Date: 09/10/19 Loc: ER Room/Bed: Attending Dr: Ordering Provider/Ordering MD: Syed Urias Date of Service: 09/10/19 Procedure(s): XR tibia fibula LT 2V [id number] Accession Number(s): [id number] Report Number: [id number] PROCEDURE INFORMATION: Exam: XR Left Tibia and Fibula Exam date and time: 09/10/2019 2:02 PM Age: 58 years old Clinical indication: Injury or trauma; Fall; Initial encounter; Blunt trauma; Lower leg; Left; Additional info: Impact injury on walker, pain. TECHNIQUE: Imaging protocol: XR Left tibia and fibula. Views: 2 views. COMPARISON: No relevant prior studies available. FINDINGS: Bones/joints: Normal. Soft tissues: Edema is present in the soft tissues surrounding the lower leg and ankle. There is a distal Achilles tendon enthesophytes. XR/XR tibia fibula LT 2V [id number] IMPRESSION: Soft tissue edema. No evidence for fracture. Dictated By: Tea Rivera MD Signed By: Tea Rivera MD Signed Date/Time: 09/10/19 1506 DD/ 150 Discharge Plan Discharge Patient Disposition: Home, Self-Care Clinical Impression: Abrasion Contusion Qualifiers: Encounter type: initial encounter Contusion area: lower leg Laterality: left Qualified Code(s): S80.12XA - Contusion of left lower leg, initial encounter Condition: Stable Prescriptions: No Action (DME) [place] Qty: 1 RF: 0 warfarin 1 mg tablet 1 mg PO DIRECTED RF: 0 Crestor 10 mg tablet 10 mg PO DAILY Qty: 90 RF: 3 diltiazem HCl 360 mg capsule,extended release 24 hr 360 mg PO DAILY Qty: 90 RF: 3 levothyroxine 50 mcg tablet 50 mcg PO DAILY Qty: 90 RF: 0 lisinopril 20 mg tablet 20 mg PO DAILY Qty: 90 RF: 3 metoprolol tartrate 100 mg tablet 100 mg PO BID Qty: 180 RF: 3 digoxin 125 mcg (0.125 mg) tablet 125 mcg PO DAILY Qty: 90 RF: 3 warfarin 3 mg tablet 3 mg PO DAILY Qty: 90 RF: 3 aspirin [Aspir-81] 81 mg Tablet,Delayed Release (Dr/Ec) 81 mg PO DAILY RF: 0 ibuprofen 600 mg Tablet 600 mg PO Q6H PRN (Reason: Pain) RF: 0 magnesium citrate Solution 150 ml PO DAILY PRN (Reason: constipation) Qty: 296 RF: 0 Discharge Orders: Discharge Order (Routine); Ordered 09/10/19 Ordered By: Syed Urias Referrals: Dominick Abernathy MD [Primary Care Provider] - Discharge Diet: Regular Discharge Activity: Increase activity as tolerated Patient Instructions: Contusion in Adults (ED) Activity Restrictions/Additional Instructions: Rest, ice and elevate left leg. Continue taking ibuprofen to help with pain and inflammation. Schedule a follow-up appointment with your PCP in the next 7 to 10 days. Discharge Date/Time: 09/10/19 14:40 Coding Level of Care Code ED Chairman Emeritus for Magen Fwnaima Exam Comprehensive
--- NOTE | 2019-09-10 14:00 | XRR_ITS ---
PROCEDURE INFORMATION: Exam: XR Left Tibia and Fibula Exam date and time: 09/10/2019 2:02 PM Age: 58 years old Clinical indication: Injury or trauma; Fall; Initial encounter; Blunt trauma; Lower leg; Left; Additional info: Impact injury on walker, pain. TECHNIQUE: Imaging protocol: XR Left tibia and fibula. Views: 2 views. COMPARISON: No relevant prior studies available. FINDINGS: Bones/joints: Normal. Soft tissues: Edema is present in the soft tissues surrounding the lower leg and ankle. There is a distal Achilles tendon enthesophytes. XR/XR tibia fibula LT 2V [id number] IMPRESSION: Soft tissue edema. No evidence for fracture.
[2019-09-10 14:39] VITALS: BP 125/73; PULSE 62; RESP 18; O2SAT 97
== END 2019-09-10 14:40 | disposition home or self-care (01) ==
LOC: ER 14:51
PROVIDERS: Emergency Provider Physician Assistant; Family Provider Internal Medicine; PCP Internal Medicine
DX: S80.12XA Contusion of left lower leg, initial encounter (principal); W22.09XA Striking against other stationary object, initial encounter; Z79.01 Long term (current) use of anticoagulants; Z79.82 Long term (current) use of aspirin; I48.91 Unspecified atrial fibrillation; Z85.41 Personal history of malignant neoplasm of cervix uteri; I11.0 Hypertensive heart disease with heart failure; I50.9 Heart failure, unspecified; E78.5 Hyperlipidemia, unspecified; Z95.0 Presence of cardiac pacemaker
CPT/HCPCS: 73590; 99281; 99282

== ENCOUNTER 2020-01-18 15:28 | Emergency (ER) | payer MEDICARE, SELFPAY ==
[2020-01-18 15:46] VITALS: BP 133/77; PULSE 62; RESP 16; TEMP 36.3; O2SAT 97; BMI 34.0
--- NOTE | 2020-01-18 16:11 | USCV_ITS ---
Maryuri Abernathy Age: 59 Gender: F : 1960 Exam Date: 01/18/2020 16:31 Ordering Phys: Marian Mcdonald Technologist: Miald Rodriguez Exam Location: [facility]_ Indication: LT ARM PAIN AND EDEMA HISTORY: Upper extremity swelling. PROCEDURES: Venous duplex imaging was performed in only the left upper extremity. The following venous structures were evaluated: internal jugular vein, subclavian vein, axillary vein, and brachial veins. In addition, the basilic vein, cephalic vein, radial vein, and ulnar vein. FINDINGS: Evidence of indeterminate occlusive deep vein thrombosis in the left axillary vein with abnormal flow dynamics. No additional DVT. CONCLUSIONS Age indeterminate left axillary vein thrombus. Dr. Karley Dorantes DO (Electronically Signed) Final Date: 19 January 2020 15:27 S
--- NOTE | 2020-01-18 16:30 | ED_ITS ---
HPI - Skin/Abscess/Foreign Bdy General: Chief complaint: Skin/Abscess/Foreign Body Stated complaint: Pain/redness in left arm Time Seen by Provider: 01/18/20 16:11 History of Present Illness: HPI narrative: 59-year-old female patient presents to the emergency department with left upper arm pain and redness/swelling. She reports received flu shot on 01/15/2020, left upper extremity, noted soreness and tenderness on Wednesday, noted erythema and swelling yesterday markedly worsening today. She reports feels as somebody punched her in the arm. She reports swelling and redness is a concern. She is on Coumadin for valve condition. She reports chills but denies fever. She states has taken Benadryl and Claritin for redness but has not helped. complaint: rash Onset (ago): day(s) (2) Location: LUE Severity: moderate Severity scale (1-10): 5 Quality: burning, constant and pruritic Relieving factors: none Exacerbating factors: none Context: other (Flu vaccine) Associated symptoms: Reports chills, itching and myalgias; Deny nausea or vomiting Treatments prior to arrival: none Review of Systems General: Reports: 10 or more systems reviewed and unremarkable except in HPI and below Const: Reports: chills Eyes: Denies: blurry vision or eye redness ENMT: Denies: throat pain, dental pain or disequilibrium Card: Denies: chest pain, palpitations or irregular heart rhythm Resp: Denies: dyspnea, productive cough, non-productive cough or wheezing GI: Denies: abdominal pain, nausea or vomiting : Denies: difficulty voiding or dysuria Musc: Denies: back pain Skin/Breast: Reports: rash, pruritus, erythema and changes in skin color Neuro: Denies: headache(s), weakness in extremities or behavioral changes John/Lymph: Denies: easy bruising PFSH ED PFSH: Medical History (Updated 01/18/20 @ 17:58 by ALIVIA Christian) Afib Cancer of cervix Cardiomyopathy Cervical myopathy CHF (congestive heart failure) Degenerative cervical spinal stenosis Essential (primary) hypertension Hyperlipemia Hypothyroidism Pacemaker Surgical History Aortic valve prosthesis present History of prosthetic tricuspid valve replacement Mitral valve replaced S/P cholecystectomy LOSS PREVENTION GUARD (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) shunt status Social History Smoking and tobacco status: never smoked Alcohol intake: current Physical Exam Const: COMMON NORMALS: no acute distress, patient oriented x3, healthy appearing and alert GENERAL APPEARANCE: cooperative, comfortable and well hydrated HENMT: COMMON NORMALS: normocephalic, Normal external nose present and moist oral mucous membranes HEAD & SCALP: normocephalic NOSE: Normal external nose present Eye: COMMON NORMALS: Equal, round and reactive pupils present and EOMs intact bilaterally GENERAL EYE: appearance normal, both eyes and all related structures PUPIL: Yes Equal, round and reactive pupils present Neck/C-Spine: COMMON NORMALS: full ROM and no lymphadenopathy GENERAL: Yes normal visual inspection and Yes trachea midline CERVICAL SPINE: Yes cervical ROM normal Lymph: LYMPHATIC: no lymphadenopathy noted Chest: COMMONS NORMALS: normal inspection of the chest Resp: COMMON NORMALS: normal respiratory effort and clear to auscultation bilaterally AUSCULTATION: clear to auscultation bilaterally Cardio: COMMON NORMALS: regular rhythm, S1 normal heart sound present, S2 normal heart sound present and Peripheral pulses 2+ throughout RHYTHM: regular rhythm HEART SOUNDS: S1 normal heart sound present and S2 normal heart sound present PERIPHERAL PULSES: Peripheral pulses 2+ throughout GI: COMMON NORMALS: Soft to palpation and non-tender INSPECTION: Yes normal to inspection PALPATION: Yes Soft to palpation : COMMON NORMALS: Yes no CVA tenderness BLADDER/KIDNEY EXAM: Yes no CVA tenderness Back/Pelvis: COMMON NORMALS: no CVA tenderness and thoracic and lumbar spine normal to inspection Extremity: COMMON NORMALS: normal to inspection and capillary refill normal Neuro: COMMON NORMALS: patient oriented x3 and no focal motor deficits SENSORIUM/ORIENTATION: Yes alert Psych: COMMON NORMALS: mental status grossly normal, Normal thought process present and cooperative ACTIVITY/MOTOR BEHAVIOR: Yes appropriate eye contact THOUGHT PROCESS: Normal thought process present Skin: COMMON NORMALS: turgor normal SKIN IMAGES (FEMALE): 1. Erythema and darkened discoloration of the left medial upper arm, edema noted, swelling noted to the elbow. Not able to reproduce elbow or shoulder pain. Area of erythema and induration 18 cm. Area of concern is distal to the puncture site from flu vaccine. GENERAL SKIN EXAM: turgor normal Course ED course: 59-year-old female patient presents to the emergency department wi of left upper extremity erythema and pain. Onset of symptoms 1 to 2 days prior, recent flu shot of the left upper extremity 4 days ago. She reports previous reaction to influenza vaccine but not like she has experienced today. She remains on Coumadin, INR currently 2.02. She is able to monitor her INRs at home with i-STAT machine, she agrees to take INR tomorrow, goal is 2.5-3, she agrees to follow-up with her primary care physician for reevaluation of left upper extremity this week. Vital Signs: Vital signs: Vital Signs Temperature 97.3 F L 01/18/20 15:46 Pulse Rate 63 01/18/20 16:42 Respiratory Rate 16 01/18/20 16:42 Blood Pressure 138/83 01/18/20 16:42 Pulse Oximetry 97 01/18/20 16:42 MDM - Skin/Abscess/Foreign Bdy Lab Data: Labs: Lab Results 01/18/20 01/18/20 Range/Units 16:42 16:42 WBC 8.4 (4.0-10.0) 10^3/ uL RBC 4.21 (4.1-5.3) 10^6/u L Hgb 13.0 (11.5-15.3) g/dL Hct 39.8 (37.0-47.0) % MCV 94.5 (81-99) fL MCH 30.9 (28.0-34.0) pg MCHC 32.7 (30.0-36.0) g/dL RDW 13.0 (12.1-15.1) % Plt Count 301 (130-400) 10^3/c mm MPV 10.1 (7.4-10.4) fL Neut % (Auto) 62.3 % Lymph % (Auto) 20.9 % [place] % (Auto) 11.1 % Eos % (Auto) 4.5 % Baso % (Auto) 0.6 % Neut # (Auto) 5.24 (1.8-7.7) 10^3/u L Lymph # (Auto) 1.8 (0.8-4.8) 10^3/u L [place] # (Auto) 0.9 (0.2-0.9) 10^3/u L Eos # (Auto) 0.4 (0.0-0.8) 10^3/u L Baso # (Auto) 0.1 (0.0-0.1) 10^3/u L Nucleated RBC % (a uto) 0 % Nucleated RBCs # 0.0 /100WBC PT 23.50 H (12.1-14.9) SECO NDS INR 2.02 H (0.8-1.2) Imaging Data^: US: My impression: Venous ultrasound of the left upper extremity did reveal DVT, chronic in nature to the area of concern. Radiology interpretation pending. 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 Condition: Stable Prescriptions: New clindamycin HCl 300 mg capsule 300 mg PO QID 7 Days Qty: 28 RF: 0 No Action (DME) Lisa Qty: 1 RF: 0 warfarin 1 mg tablet 1 mg PO DIRECTED RF: 0 Crestor 10 mg tablet 10 mg PO DAILY Qty: 90 RF: 3 diltiazem HCl 360 mg capsule,extended release 24 hr 360 mg PO DAILY Qty: 90 RF: 3 lisinopril 20 mg tablet 20 mg PO DAILY Qty: 90 RF: 3 metoprolol tartrate 100 mg tablet 100 mg PO BID Qty: 180 RF: 3 digoxin 125 mcg (0.125 mg) tablet 125 mcg PO DAILY Qty: 90 RF: 3 warfarin 3 mg tablet 3 mg PO DAILY Qty: 90 RF: 3 warfarin 2 mg tablet 2 mg PO DAILY Qty: 90 RF: 3 levothyroxine 50 mcg tablet 50 mcg PO DAILY Qty: 90 RF: 0 aspirin [Aspir-81] 81 mg Tablet,Delayed Release (Dr/Ec) 81 mg PO DAILY RF: 0 ibuprofen 600 mg Tablet 600 mg PO Q6H PRN (Reason: Pain) RF: 0 magnesium citrate Solution 150 ml PO DAILY PRN (Reason: constipation) Qty: 296 RF: 0 Discharge Orders: Discharge Order (Routine); Ordered 01/18/20 Ordered By: Marian Mcdonald Referrals: Dominick Abernathy MD [Primary Care Provider] - Discharge Diet: Usual diet Discharge Activity: Limit activity as instructed Patient Instructions: Superficial Thrombophlebitis (ED), Deep Venous Thrombosis (ED) Activity Restrictions/Additional Instructions: Increase Coumadin to 3.5 mg daily, recheck INR tomorrow, goal INR is 2.5-3 Take clindamycin until all gone, even if feeling better Arm compresses to the extremity as needed for pain Avoid rubbing the arm or rubbing the area If you develop shortness of breath, difficulty breathing, increased redness with red streaking or increased lymph nodes under the left axilla, return to the emergency department immediately. Follow-up with Dr. Abernathy in 2 to 3 days for reevaluation of your arm. client services assistant will be contacted to assist with this appointment. Coding Level of Care Code ED Regional Commercial Sales Manager for [employer] Fwd Exam Comprehensive
[2020-01-18 16:42] VITALS: BP 138/83; PULSE 63; RESP 16; O2SAT 97
[2020-01-18 16:57] LABS: Basophils # 0.1 10^3/uL (0.0-0.1); Basophils % 0.6 %; Eosinophils # 0.4 10^3/uL (0.0-0.8); Eosinophils % 4.5 %; Hematocrit 39.8 % (37.0-47.0); Lymphocytes # 1.8 10^3/uL (0.8-4.8); Lymphocytes % 20.9 %; Mean Corpuscular HGB Conc 32.7 g/dL (30.0-36.0); Mean Corpuscular Hemoglobin 30.9 pg (28.0-34.0); Mean Corpuscular Volume 94.5 fL (81-99); Mean Platelet Volume 10.1 fL (7.4-10.4); Monocytes # 0.9 10^3/uL (0.2-0.9); Monocytes % 11.1 %; Neutrophils # 5.24 10^3/uL (1.8-7.7); Neutrophils % 62.3 %; Nucleated Red Blood Cells % 0 %; Platelet Count 301 10^3/cmm (130-400); Red Blood Count 4.21 10^6/uL (4.1-5.3); White Blood Count 8.4 10^3/uL (4.0-10.0)
[2020-01-18 17:10] LABS: INR 2.02 (0.8-1.2)
--- NOTE | 2020-01-19 08:25 | DCPLANNER ---
consulting sales manager had message to schedule a follow up appointment for patient with Dr. Abernathy. consulting sales manager called the office of Dr. Abernathy, spoke with Emily, gave clinic patients information. A follow up appointment was scheduled for Wednesday, January 22, 2020 at 3:[address] Abernathy. consulting sales manager called patient with appointment information, patient stated that she would attend the appointment.
--- NOTE | 2020-02-01 08:09 | DCPLANNER ---
Patient had a follow up appointment scheduled for 01.21.20 - patient attended appointment.
== END 2020-01-18 18:12 | disposition home or self-care (01) ==
PROVIDERS: Emergency Provider Nurse Practitioner Family; PCP Internal Medicine
DX: I80.8 Phlebitis and thrombophlebitis of other sites (principal); I82.722 Chronic embolism and thrombosis of deep veins of left upper extremity; Z79.01 Long term (current) use of anticoagulants; Z79.82 Long term (current) use of aspirin; I48.91 Unspecified atrial fibrillation; Z85.41 Personal history of malignant neoplasm of cervix uteri; I11.0 Hypertensive heart disease with heart failure; I50.9 Heart failure, unspecified; E78.5 Hyperlipidemia, unspecified; Z95.0 Presence of cardiac pacemaker
CPT/HCPCS: 12345; 36415; 85025; 85610; 93971; 99281; 99283

== ENCOUNTER → 2020-07-10 13:03 | Outpatient (BNVA) | payer MEDICARE, SELFPAY | PROVIDERS: PCP Internal Medicine; Visit Provider Internal Medicine | DX: E03.9 Hypothyroidism, unspecified (principal) | CPT/HCPCS: 84443 ==

== ENCOUNTER 2020-11-01 07:10 | Emergency (ER) | payer MEDICARE, SELFPAY ==
[2020-11-01 07:22] VITALS: BP 174/117; PULSE 85; RESP 18; TEMP 37; O2SAT 98; BMI 32.1
--- NOTE | 2020-11-01 07:34 | W.ED.GENADLT ---
HPI - General Adult General: Chief complaint: General Medical Stated complaint: L asie ABD pain/Ribs/, toothache Time Seen by Provider: 11/01/20 07:24 History of Present Illness: HPI narrative: 59-year-old female presents emergency room complaining of a tooth abscess in the right maxilla. She took a course of Zithromax. She is also complaining of some left-sided rib pain she has been having nausea and vomiting associated and feels like she strained her ribs she not had any fever sweats or chills no shortness of breath. Onset (ago): day(s) Location: face and chest Severity: mild Quality: aching Pain Consistency: constant Relieving factors: none Exacerbating factors: none Associated symptoms: Deny chest pain, confusion, cough, diaphoresis, decreased appetite, dyspnea, fevers/chills, headache(s), malaise, nausea, rash, palpitations, seizures, short of breath, syncope, vomiting or weakness Treatments prior to arrival: none Review of Systems Const: Denies: malaise or diaphoresis ENMT: Denies: throat pain, ear or mastoid pain, nasal discharge or nasal congestion Card: Denies: chest pain, palpitations or syncope Resp: Denies: dyspnea GI: Denies: nausea or vomiting : Denies: flank pain, difficulty voiding, dysuria, urinary frequency or urinary urgency Skin/Breast: Denies: rash Neuro: Denies: headache(s) or confusion PFS ED PFSH: Medical History Afib Cancer of cervix Cardiomyopathy Cervical myopathy CHF (congestive heart failure) Degenerative cervical spinal stenosis Essential (primary) hypertension Hx of myocardial infarction Hyperlipemia Hypothyroidism NSTEMI (non-ST elevated myocardial infarction) Pacemaker Prosthetic aortic valve stenosis Valvular heart disease Surgical History Aortic valve prosthesis present History of prosthetic tricuspid valve replacement Mitral valve replaced S/P cholecystectomy S/P TVR (tricuspid valve repair) 2004 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 ENGINEER (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) shunt status Family History Father CAD (coronary artery disease) Other Family history unknown Hypertension Denies family history of Clotting disorder Anesthesia complication Bleeding disorder Social History Smoking and tobacco status: never smoked Alcohol intake: current History of recent travel: No Physical Exam Const: COMMON NORMALS: no acute distress GENERAL APPEARANCE: cooperative and comfortable ORIENTATION/CONSCIOUSNESS: Yes awake, Yes oriented to person, Yes oriented to place and Yes oriented to time HENMT: COMMON NORMALS: normocephalic, atraumatic and hearing grossly normal bilaterally HEAD & SCALP: normocephalic and atraumatic OTHER: Swelling around the gumline with a previous tooth was extracted no active drainage no fluctuant areas. Neck/C-Spine: COMMON NORMALS: no JVD Chest: OTHER: Tenderness along the lateral rib lower ribs on the left. No subcu air no crepitus Resp: COMMON NORMALS: normal respiratory effort, No retractions, No use of accessory muscles and clear to auscultation bilaterally AUSCULTATION: clear to auscultation bilaterally Cardio: COMMON NORMALS: no JVD, regular rate, regular rhythm and No murmurs present (Cardio) RATE: regular rate RHYTHM: regular rhythm GI: COMMON NORMALS: Soft to palpation and No hepatosplenomegaly present AUSCULTATION: Yes normoactive bowel sounds PALPATION: Yes Soft to palpation, No Tenderness to palpation present (GI), No Guarding due to palpation present (GI) and Yes No hepatosplenomegaly present Extremity: COMMON NORMALS: normal to inspection, capillary refill normal, no clubbing, cyanosis or edema, no calf tenderness and no pedal edema Neuro: SENSORIUM/ORIENTATION: Yes oriented to person, Yes oriented to place and Yes oriented to time Skin: COMMON NORMALS: no rashes or lesions noted GENERAL SKIN EXAM: no rashes or lesions noted Course Vital Signs: Vital signs: Vital Signs Temperature 98.6 F 11/01/20 07:22 Pulse Rate 83 11/01/20 09:01 Respiratory Rate 16 11/01/20 09:01 Blood Pressure 146/97 11/01/20 09:01 Pulse Oximetry 99 11/01/20 09:01 Discharge Plan Discharge Patient Disposition: Home Clinical Impression: Dental abscess, Rib pain on left side Condition: Stable Prescriptions: New clindamycin HCl 300 mg capsule 300 mg PO Q6H 7 Days Qty: 28 RF: 0 tramadol 50 mg tablet 50 mg PO Q6H PRN (Reason: pain) Qty: 15 RF: 0 No Action hydrocodone-acetaminophen 5-325 mg tablet 1 tab PO TID PRN (Reason: pain) 3 Days Qty: 10 RF: 0 azithromycin 500 mg tablet See Rx Instructions PO .COMPLEX Qty: 3 RF: 0 naproxen [EC-Naproxen] 375 mg tablet,delayed release (DR/EC) 375 mg PO BID Qty: 30 RF: 0 Crestor 10 mg tablet 10 mg PO DAILY Qty: 90 RF: 3 warfarin 3 mg tablet 3 mg PO DAILY Qty: 90 RF: 3 diltiazem HCl 360 mg capsule,extended release 24hr See Rx Instructions .ROUTE .COMPLEX Qty: 90 RF: 3 lisinopril 20 mg tablet See Rx Instructions .ROUTE .COMPLEX Qty: 90 RF: 3 levothyroxine 50 mcg tablet 50 mcg PO DAILY Qty: 90 RF: 3 warfarin 1 mg tablet 1 mg PO DIRECTED Qty: 90 RF: 1 metoprolol tartrate 100 mg tablet 100 mg PO BID Qty: 180 RF: 3 warfarin 2 mg tablet See Rx Instructions mg .ROUTE .COMPLEX Qty: 90 RF: 3 aspirin [Aspir-81] 81 mg Tablet,Delayed Release (Dr/Ec) 81 mg PO DAILY RF: 0 Discharge Orders: Discharge ED (Routine); Ordered 11/01/20 Ordered By: Serafin Brennan Referrals: Dominick Abernathy MD [Primary Care Provider] - Patient Instructions: Opioid Safety Activity Restrictions/Additional Instructions: Follow-up with a dentist to reevaluate the area of concern where a tooth was pulledpreviously. Coding Level of Care Code ED Proof Reader for Magen Brown
--- NOTE | 2020-11-01 07:42 | XR_ITS ---
WS: [id number] Chest with left rib detail, 11/01/2020 Clinical Data: L rib pain Comparison: PA chest, 04/14/2019. Findings: The lungs show no nodules, masses, or effusions. The heart is enlarged. No pneumonia or pneumothorax is seen. There is a single-lead pacemaker with an additional epicardial lead. The wire leading from the genera tor to the lead ending in the heart has fractured. There are multiple artificial heart valves in posi tion. There is a right internal jugular venous catheter which ends at the cavoatrial junction. The ribs are intact. No rib fractures seen. No subcutaneous emphysema is present. XR/XR ribs LT mn 3V w CXR1V [id number] Impression: 1. The wire from the pacemaker generator leading to the heart has fractured. 2. Cardiomegaly with multiple artificial heart valves. 3. Negative left ribs.
[2020-11-01 09:01] VITALS: BP 146/97; PULSE 83; RESP 16; O2SAT 99
== END 2020-11-01 09:13 | disposition home or self-care (01) ==
PROVIDERS: Emergency Provider Family Medicine; PCP Internal Medicine
DX: K04.7 Periapical abscess without sinus (principal); R07.81 Pleurodynia; I11.0 Hypertensive heart disease with heart failure; I50.9 Heart failure, unspecified; I42.9 Cardiomyopathy, unspecified; E78.5 Hyperlipidemia, unspecified; E03.9 Hypothyroidism, unspecified; I25.2 Old myocardial infarction; Z95.2 Presence of prosthetic heart valve; Z79.82 Long term (current) use of aspirin
CPT/HCPCS: 71101; 99282

== ENCOUNTER 2020-11-12 12:40 | Outpatient (CLI) | payer MEDICARE, SELFPAY ==
--- NOTE | 2020-11-12 12:52 | XR_ITS ---
WS: [id number] KUB, AP view, 11/12/2020 Clinical Data: blood in urine Comparison: None. Findings: No abnormal intraabdominal masses or calcifications are seen. There is no dilatated small bowel or ev idence of obstruction. There is fecal material in colon gas obscuring detail over the kidneys. There is a clip in the right upper quadrant from a cholecystectomy. There are clips in the pelvis from surgery. There is a dextros coliosis of the lumbar spine. XR/XR KUB [id number] Impression: Negative KUB.
== END 2020-11-12 12:41 | disposition home or self-care (01) ==
LOC: RAD 12:46
PROVIDERS: PCP Internal Medicine; Visit Provider Nurse Practitioner
DX: R31.9 Hematuria, unspecified (principal)
CPT/HCPCS: 74018; 81003; 87086

== ENCOUNTER 2020-11-15 14:18 | Outpatient (CLI) | payer MEDICARE, SELFPAY ==
[2020-11-15] MEDS: iohexol 300 mg/mL 100 mL Btl IV (14:51)
--- NOTE | 2020-11-15 15:00 | CT_ITS ---
WS: [id number] CT ABDOMEN AND PELVIS WITH AND WITHOUT CONTRAST HISTORY: Demetri hematuria TECHNIQUE: Unenhanced 5 mm axial imaging first performed through the abdomen. Post contrast imaging t hrough the abdomen and pelvis. Oral contrast has not been provided. Sagittal and coronal reformats a re submitted. All CT scans at [facility] use at least one of these dose optimization tech niques: automated exposure control; mA and/or kV adjustment per patient size (includes targeted exams where dose is matched to clinical indication); or iterative reconstruction. CONTRAST: Omnipaque 300; 95 mL IV. DLP: 2361.18 mGy.cm COMPARISON: 08/14/2019 Lung bases are clear. Mild to moderate enlargement of the heart. Small hiatal hernia. Prior cholecystectomy. Mild heterogeneity within the spleen is similar to the prior examination. Live r is negative. Normal pancreas. No adrenal mass. Moderate atherosclerosis aorta. 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 Renal pelves are directed a nteriorly. No calcifications within either kidney. No solid renal mass or ureteral mass. No filling d efects. Moderate diffuse fecal retention. No ascites or adenopathy. Multiple ventral abdominal wall hernias p redominantly containing fat. One ventral abdominal wall hernia contains minimal colon. Well-distended urinary bladder. Possible very small filling defect in the LEFT posterior base of the urinary bladder. Very slightly hypervascular nodule on early contrast injection. There is a very tiny defect on the delayed imaging. Mild curvature lumbar spine to the RIGHT. No fractures. Facet joint arthritis and moderate on the RIG HT at L5-S1. CT/CT abdomen pelvis wo/w [id number] IMPRESSION: 1. Horseshoe kidneys. No solid mass or obstruction identified. 2. Suspicious but indeterminate for a 5 mm filling defect in the LEFT urinary bladder, posterior and at the base. Recommend cystoscopy. 3. No renal stones or obstruction. 4. Prior cholecystectomy. 5. Multiple ventral abdominal wall hernias containing fat.
== END 2020-11-15 14:19 | disposition home or self-care (01) ==
PROVIDERS: PCP Internal Medicine; Visit Provider Internal Medicine
DX: R31.0 Gross hematuria (principal); Q63.1 Lobulated, fused and horseshoe kidney; Z90.49 Acquired absence of other specified parts of digestive tract; K43.9 Ventral hernia without obstruction or gangrene
CPT/HCPCS: 74178

== ENCOUNTER → 2020-11-29 10:29 | Outpatient (BNVA) | payer MEDICARE, SELFPAY | PROVIDERS: PCP Internal Medicine; Visit Provider Urology | DX: Z20.822 Contact with and (suspected) exposure to COVID-19 (principal); D49.4 Neoplasm of unspecified behavior of bladder | CPT/HCPCS: 87635 ==

== ENCOUNTER 2020-12-05 15:27 | Observation (INO) | payer MEDICARE, SELFPAY ==
[2020-12-04 13:11] VITALS: BMI 31.1
[2020-12-05] VITALS (10 sets, daily range): BP systolic 106–171; BP diastolic 53–84; PULSE 60–77; RESP 16–20; TEMP 36.3–37.1; O2SAT 92–99
--- NOTE | 2020-12-05 12:24 | ECG_ITS ---
[facility] Test Date: 2020-12-05 Pat Name: Maryuri Abernathy Department: Room: Gender: Female Outsole Tacker: : 1960 Requested By: Clay Wagner Order Number: [id number] Clary MD: GABBY MARTINEZ Measurements Intervals [place] Rate: 77 P: VT: QRS: 30 QRSD: 122 T: 110 QT: 393 QTc: 446 Interpretive Statements Ectopic atrial rhythm MODERATE INTRAVENTRICULAR CONDUCTION DELAY [105+ ms QRS DURATION, 80+ ms Q/S IN V1/V2, NO Q AND 60+ ms R IN I/aVL/V5/V6] MODERATE ST DEPRESSION [0.05+ mV ST DEPRESSION] ABNORMAL QRS-T ANGLE [QRS-T AXIS DIFFERENCE > 60] Compared to ECG 06/18/2019 11:38:53 Intraventricular conduction delay now present ST (T wave) deviation now present Ventricular-paced complex(es) or rhythm no longer present Electronically Signed On 12-05-2020 22:21:50 CDT by GABBY MARTINEZ [id number]
[2020-12-05] MEDS: sodium chloride 0.9% 1,000 ML 30 ML IV (13:20)
[2020-12-05 13:21] LABS: Basophils # 0.1 10^3/uL (0.0-0.1); Basophils % 0.6 %; Eosinophils # 0.2 10^3/uL (0.0-0.8); Hematocrit 38.5 % (37.0-47.0); Lymphocytes # 1.4 10^3/uL (0.8-4.8); Lymphocytes % 17.5 %; Mean Corpuscular HGB Conc 33.8 g/dL (30.0-36.0); Mean Corpuscular Hemoglobin 30.7 pg (28.0-34.0); Mean Platelet Volume 9.9 fL (7.4-10.4); Monocytes # 0.6 10^3/uL (0.2-0.9); Neutrophils # 5.91 10^3/uL (1.8-7.7); Neutrophils % 72.4 %; Nucleated Red Blood Cells % 0 %; Platelet Count 298 10^3/cmm (130-400); Red Blood Count 4.23 10^6/uL (4.1-5.3); White Blood Count 8.2 10^3/uL (4.0-10.0)
[2020-12-05 13:40] LABS: INR 1.07 (0.8-1.2)
[2020-12-05 13:43] LABS: Anion Gap 15.3 (5-19); Blood Urea Nitrogen 10 mg/dL (8-23); Calcium 9.3 mg/dL (8.5-10.5); Carbon Dioxide 24 mmol/L (22-29); Chloride 104 mmol/L (98-107); Creatinine Clr Calc Pharmacy 77.1095; Glomerular Filtration Rate 84.8 mL/min (90-130); Glucose 93 mg/dL (65-115); Osmolality Calculated 287 mOsm/kg (285-295); Potassium 4.3 mmol/L (3.5-5.1); Sodium 139 mmol/L (136-145)
--- NOTE | 2020-12-05 13:57 | P.ANESASSM_ITS ---
Pre-Anesthetic Assessment Pre-Anesthetic Assessment: Height/Weight: Height 1.55 m Weight 74.843 kg Temp Pulse Resp BP Pulse Ox 97.6 F 76 16 129/84 96 12/05/20 12:37 12/05/20 12:37 12/05/20 12:37 12/05/20 12:37 12/05/20 12:37 Preop Diagnosis: Newly diagnosed bladder cancer Proposed Procedure: Operation Date: 12/05/20 13:30 Proposed Procedures p Cystoscopy 37605 D49.4(Not Applicable) - Nicholas William MD s Transurethral Resection Bladder Tumor(Not Applicable) - Nicholas William MD Was Beta Hunter taken within 24 hours: Yes Was Clonidine taken within 24 hours: N/A Last intake: Intake Last Liquid Date 12/04/20 Last Liquid Time 19:00 Last Solid Date 12/04/20 Last Solid Time 19:00 Social: Social History: No alcohol Comment: Smokes shayne Exam: Pre-Anes Outpt Exam: alert, oriented x 3 and regular rate & rhythm Airway: Submandibular: WNL Cervical ROM: WNL MP: 2 Dentition: Full CV/HEM: CV/HEM: Afib, CHF and HTN Comments: Multiple valves replace secondary to Redux , pacemaker GI: GI: GERD Metabolic: Metabolic: Morbid obesity and Thyroid Anesthetic Plan: ASA status: 3 Anesthesia: General Other: PONV Risk of > 500 ml blood loss (7ml/kg in children): No Meds/Allergies Current Medications: Current Medications Generic Name Dose Route Start Last Admin Trade Name Freq PRN Reason Stop Dose Admin Sodium Chloride 1,000 mls @ 30 ml s/hr 12/05/20 12:30 12/05/20 13:20 Sodium Chloride 0.9% IV 12/06/20 12:29 30 mls/hr .Q24H ELOINA Administration PFSH Anesthesia PFSH: Medical History (Updated 11/24/20 @ 12:25 by Nicholas William MD) Afib Cancer of cervix Cardiomyopathy Cervical myopathy CHF (congestive heart failure) Chronic fatigue Degenerative cervical spinal stenosis Essential (primary) hypertension Hepatitis C Hx of fracture of lower leg Hx of intestinal obstruction Hx of myocardial infarction Hyperlipemia Hypothyroidism Long-term (current) use of anticoagulants, INR goal 2.5-3.5 NSTEMI (non-ST elevated myocardial infarction) Pacemaker Partial tear of rotator cuff Prosthetic aortic valve stenosis Unspecified macular degeneration Valvular heart disease Surgical History (Updated 11/24/20 @ 12:25 by Nicholas William MD) Aortic valve prosthesis present History of prosthetic tricuspid valve replacement History of surgery on wrist Hx of hernia repair Hx of hysterectomy Hx of knee surgery Mitral valve replaced S/P cholecystectomy S/P TVR (tricuspid valve repair) 2004 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 (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) 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 Family History Father CAD (coronary artery disease) Other Family history unknown Hypertension Denies family history of Clotting disorder Anesthesia complication Bleeding disorder Social History Alcohol intake: current History of recent travel: No Data Anesthesia CBC & Chem 7: 12/05/20 12:15 12/05/20 12:15 Other Labs: Laboratory Results - last 48 hr 12/05/20 12/05/20 12/05/20 12:15 12:15 12:15 WBC 8.2 RBC 4.23 Hgb 13.0 Hct 38.5 MCV 91.0 MCH 30.7 MCHC 33.8 RDW 13.0 Plt Count 298 MPV 9.9 Neut % (Auto) 72.4 Lymph % (Auto) 17.5 [place] % (Auto) 7.0 Eos % (Auto) 2.0 Baso % (Auto) 0.6 Neut # (Auto) 5.91 Lymph # (Auto) 1.4 [place] # (Auto) 0.6 Eos # (Auto) 0.2 Baso # (Auto) 0.1 Nucleated RBC % (auto) 0 Nucleated RBCs # 0.0 PT 14.20 INR 1.07 Sodium 139 Potassium 4.3 Chloride 104 Carbon Dioxide 24 Anion Gap 15.3 BUN 10 Creatinine 0.7 GFR Calculation 84.8 L Glucose 93 Calculated Osmolality 287 Calcium 9.3 Cardiac Studies: No Data to Display
--- NOTE | 2020-12-05 14:16 | W.PM.OPSUD ---
Surgery/Procedure H&P Update DATE OF PROCEDURE: December 05, 2020 DATE H&P PERFORMED: 11/20/20 H&P UPDATE INFORMATION: I have reviewed H&P completed within last 30 days, I have examined patient prior to procedure, No changes to prior documentation and H&P is in [facility] EMR on date indicated PREOP DIAGNOSIS: Newly diagnosed bladder cancer PLANNED PROCEDURE: Operation Date: 12/05/20 13:30 Proposed Procedures p Cystoscopy 34532 D49.4(Not Applicable) - Nicholas William MD s Transurethral Resection Bladder Tumor(Not Applicable) - Nicholas William MD
--- NOTE | 2020-12-05 14:31 | PM.OP ---
Operative Report Date of procedure: December 05, 2020 Pre-op Diagnosis: Newly diagnosed bladder cancer Post-op diagnosis: same Procedure Done: Cystoscopy, transurethral section of bladder tumor medium Specimens removed/disposition: Bladder tumor resection repeat biopsies Pathology: Bladder tumor chips Surgeon: Nataliia Anesthesia: General Estimated blood loss: <5 cc Urine output: Not measured Complications: None Findings: Papillary tumor about 3 cm in diameter on the posterior floor lateral to the left ureteral orifice and extending up the lateral wall. Completely resected. Muscle visualized at the base of the resection. Orifice not involved. Condition: stable Disposition: PACU Brief History: Maryuri is a very pleasant 60-year-old white female who was recently evaluated for gross hematuria. 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 Admitted now for TURBT after holding her warfarin for appropriate period of time Procedure: After routine preoperative evaluation examination and obtaining of informed consent she was taken to the operating suite on 12/04/2020 where general anesthesia was administered without difficulty after appropriate timeout was performed, SCDs confirmed to be functioning, preoperative antibiotics administered, beta-tamiko protocol confirmed. Prepped and draped in usual sterile fashion in dorsolithotomy position paying careful attention to avoiding pressure points. 21 Jordanian cystoscope with 30 degree lens was introduced into the urethral meatus and advanced into the bladder under videoscopy. Bladder systematically examined with 30 and 70 degree lenses. The tumor was in the expected position. It appeared to be well differentiated with extension up the left lateral wall with very superficial papillary changes more laterally. Resection was conducted with the gyrus bipolar system through a 25 Jordanian continuous-flow resectoscope sheath which was advanced into the bladder without difficulty. Super loop was utilized for resection and blunt probe used for fulguration of the base. The tumor was resected down to the base of the bladder wall and then deep sections were taken where muscle was visualized cystoscopically at the base of the resection. The left ureteral orifice was always well away from the area of resection throughout the procedure and visualized to be uninvolved. The button probe was then utilized to fulgurate the base of the tumor. Meticulous hemostasis was confirmed. All the chips evacuated from the bladder were sent for pathologic evaluation. The total diameter of resection was probably closer to 4 cm. The bladder was then drained with a 20 Jordanian two-way catheter 10 cc placed in the balloon with good function demonstrated. She tolerated procedure well without complications and was awakened in the operating room and returned to the recovery room in stable condition. PLANS: 1. Admit for observation 2. Mitomycin in the morning 3. Based on the depth of resection would recommend being discharged tomorrow with a catheter in place for further healing with plan for voiding trial next week.
--- NOTE | 2020-12-05 16:58 | ANE.PACU2 ---
Inpatient post-anesthesia follow up: Airway intact: Yes Vital signs: Temperature 97.3 F Pulse Rate 62 Respiratory Rate 17 Blood Pressure 106/54 Pulse Oximetry 94 Oxygen Delivery Me thod Room Air Oxygen Flow Rate 8 Fraction of Inspir ed Oxygen Hydration adequate: Yes Nausea and vomiting: No Pain level: 2 Mental status: Baseline
[2020-12-05] MEDS: dextrose 5%-ns + KCl 20 20 MEQ/1,000 ML BAG 50 MEQ IV (17:58)
[2020-12-05] MEDS: docusate sodium 100 mg Capsule PO (17:59)
[2020-12-05] MEDS: metoprolol tartrate 50 mg Tablet 100 MG PO (20:55)
[2020-12-06 03:35] VITALS: BP 103/57; PULSE 63; RESP 16; TEMP 36.5; O2SAT 95
--- NOTE | 2020-12-06 06:10 | PC.NURSE ---
shift note patient rested in bed, continue with urine output, lightly red, no clots and color unchanged from start of shift.
--- NOTE | 2020-12-06 06:49 | PM.MISC ---
Miscellaneous Note Purpose of Documentation: INTRAVESICAL CHEMOTHERAPY INSTILLATION Note: 40 mg of mitomycin instilled into the bladder atraumatically. Catheter plugged. To hold for 1 hour or less. After drainage and urine confirmed to be clear we will plan for discharge with Flores catheter in place for plan for removal next week.
--- NOTE | 2020-12-06 06:50 | P.DS_ITS ---
Discharge Providers Date of Admission: 12/05/20 15:27 Date of Discharge: December 06, 2020 Attending Provider at Admission: Nicholas William MD Attending Provider at Discharge: Nicholas William MD Primary Care Provider: Dominick Abernathy MD Reason for Visit Reason for Visit: Bladder cancer Hospital Course Hospital Course Admitted on 12/05/2020, day of surgery for TURBT which went well. The tumor appeared to be well differentiated. It was located lateral to the left ureteral orifice and extended up onto the left lateral wall. Approximately 3 cm in total diameter. Urine remained clear overnight. Mitomycin was instilled into the bladder for 1 hour on postoperative day #1 and then drained. Routine chemo protocols observed. Because of the depth of resection it was decided to leave her Flores catheter in place at discharge. Trained in catheter management prior to discharge. Plans were made for follow-up the following week for voiding trial in the off ice. She was discharged in stable condition. Physical Exam Const: COMMON NORMALS: no acute distress, alert and well nourished GENERAL APPEARANCE: well kempt and well developed ORIENTATION/CONSCIOUSNESS: not confused HENMT: COMMON NORMALS: normocephalic and atraumatic HEAD & SCALP: normocephalic and atraumatic Eye: COMMON NORMALS: conjunctivae normal CONJUNCTIVA: Yes conjunctivae normal Neck/C-Spine: COMMON NORMALS: full ROM GENERAL: Yes normal visual inspection Resp: COMMON NORMALS: normal respiratory effort EFFORT & INSPECTION: No labored and No Actively coughing Extremity: COMMON NORMALS: no clubbing, cyanosis or edema Neuro: SENSORIUM/ORIENTATION: Yes alert Psych: COMMON NORMALS: mental status grossly normal APPEARANCE: Yes grossly normal and Yes well kempt ATTITUDE: Yes calm and Yes engaged Skin: COMMON NORMALS: no rashes or lesions noted and no jaundice GENERAL SKIN EXAM: no rashes or lesions noted Urinary Catheter Management^: Flores Latex: Cath Placed During This Visit: yes Reason for Continuing Indwelling Catheter: Accurate Measurement of Urinary Output in Critically Ill Patients Urinary Catheter Date of Insertion: 12/05/20 Urinary Catheter Time of Insertion: 15:06 Discharge Data Data Completed and Pending: Pending at discharge Category Date Time Status Pathology: Surgic al [PTH] Routine Pth 12/05/20 15:19 Ordered Labs from last 24 hours 12/05/20 12/05/20 12/05/20 12:15 12:15 12:15 WBC 8.2 RBC 4.23 Hgb 13.0 Hct 38.5 MCV 91.0 MCH 30.7 MCHC 33.8 RDW 13.0 Plt Count 298 MPV 9.9 Neut % (Auto) 72.4 Lymph % (Auto) 17.5 [place] % (Auto) 7.0 Eos % (Auto) 2.0 Baso % (Auto) 0.6 Neut # (Auto) 5.91 Lymph # (Auto) 1.4 [place] # (Auto) 0.6 Eos # (Auto) 0.2 Baso # (Auto) 0.1 Nucleated RBC % (a uto) 0 Nucleated RBCs # 0.0 PT 14.20 INR 1.07 Sodium 139 Potassium 4.3 Chloride 104 Carbon Dioxide 24 Anion Gap 15.3 BUN 10 Creatinine 0.7 GFR Calculation 84.8 L Glucose 93 Calculated Osmolal ity 287 Calcium 9.3 Vitals: Last Vital Signs Temp 97.7 F 12/06/20 03:35 Pulse 63 12/06/20 03:35 Resp 16 12/06/20 03:35 BP 103/57 12/06/20 03:35 Pulse Ox 95 12/06/20 03:35 Discharge Plan Discharge Patient Disposition: Home Condition: Stable Prescriptions: Continued diltiazem HCl 360 mg capsule,extended release 24hr See Rx Instructions .ROUTE .COMPLEX Qty: 90 RF: 3 lisinopril 20 mg tablet See Rx Instructions .ROUTE .COMPLEX Qty: 90 RF: 3 levothyroxine 50 mcg tablet 50 mcg PO DAILY Qty: 90 RF: 3 metoprolol tartrate 100 mg tablet 100 mg PO BID Qty: 180 RF: 3 Held warfarin 3 mg tablet 3 mg PO DAILY Qty: 90 RF: 3 Hold Instructions: Resume on 12/09/20. warfarin 1 mg tablet 1 mg PO DIRECTED Qty: 90 RF: 1 Hold Instructions: Resume on 12/09/20. warfarin 2 mg tablet See Rx Instructions mg .ROUTE .COMPLEX Qty: 90 RF: 3 Hold Instructions: Resume on 12/09/20. aspirin [Aspir-81] 81 mg Tablet,Delayed Release (Dr/Ec) 81 mg PO DAILY RF: 0 Hold Instructions: Resume on 12/07/20. Discharge Orders: Discharge Order (Routine); Ordered 12/06/20 Ordered By: Nicholas William Referrals: Nicholas William MD [Physician] - 12/11/20 4:15 pm (Voiding trial) Discharge Diet: Usual diet Discharge Activity: Limit activity as instructed Patient Instructions: Bladder Cancer (GEN), Opioid Safety Activity Restrictions/Additional Instructions: 1. Avoid lifting >10 pounds x 3 to 4 weeks. 2. Avoid over distention of your bladder. 3. We will follow you up in the office next week for voiding trial; hopefully the pathology report will be back by that time. 4. Restart your aspirin on 12/07/2020 5. Restart Coumadin on 12/09/2020. Begin with the 1 mg dose first. 6. Please call the hospital jet piercer operator if you have any concerns after hours. They can reach me. Call the office [phone] during normal working hours if you have questions Discharge Attestations Time Spent in Discharge Care*: greater than 30 min Quality Metrics Clinical Quality Measures During this hospital stay, did patient experience: None Coding Level of Care Code Acute Chg FW DC note Exam Comprehensive
[2020-12-06 08:00] VITALS: BP 121/68; PULSE 61; RESP 16; TEMP 36.6; O2SAT 96
[2020-12-06] MEDS: dilTIAZem ER (24HR) 180 mg Capsule 360 MG PO (08:10)
[2020-12-06] MEDS: lisinopril 20 mg Tablet PO (08:10)
[2020-12-06] MEDS: docusate sodium 100 mg Capsule PO (08:10)
[2020-12-06] MEDS: levothyroxine 50 mcg Tablet PO (08:11)
[2020-12-06] MEDS: metoprolol tartrate 50 mg Tablet 100 MG PO (08:11)
--- NOTE | 2020-12-06 08:18 | PC.NURSE ---
mytomicin drained from bladder and disposed of in yellow bin. Flores catheter was then hooked up to a urine drainage bag
--- NOTE | 2020-12-06 09:00 | PC.NURSE ---
patient educated on blanco care, use of leg bag versus large blanco bag, home medications, and follow up appointments. patient verbalizes understanding. pt dietary concerns verbalized to management.
[2020-12-06 10:50] VITALS: BP 121/68; PULSE 61; RESP 16; TEMP 36.6; O2SAT 96
== END 2020-12-06 09:35 | disposition home or self-care (01) ==
LOC: MEDSURG 15:28
PROVIDERS: Anesthesiology; Admitting Provider Urology; PCP Internal Medicine; Visit Provider Urology
PROC: 0TJB8ZZ Inspection of Bladder, Via Natural or Artificial Opening Endoscopic (ICD-10-PCS; CPT 52000; principal; 2020-12-05 13:20)
PROC: 0TBB8ZZ Excision of Bladder, Via Natural or Artificial Opening Endoscopic (ICD-10-PCS; CPT 52235; 2020-12-05 13:20)
DX: C67.9 Malignant neoplasm of bladder, unspecified (principal); I48.91 Unspecified atrial fibrillation; I11.0 Hypertensive heart disease with heart failure; I50.9 Heart failure, unspecified; Z79.01 Long term (current) use of anticoagulants; Z95.0 Presence of cardiac pacemaker; E66.01 Morbid (severe) obesity due to excess calories; Z68.31 Body mass index [BMI] 31.0-31.9, adult; Z86.19 Personal history of other infectious and parasitic diseases; E78.5 Hyperlipidemia, unspecified; E03.9 Hypothyroidism, unspecified; I25.2 Old myocardial infarction; Z82.49 Family history of ischemic heart disease and other diseases of the circulatory system
CPT/HCPCS: 52235; 36415; 51701; 80048; 85025; 85610; 88305; 93005; G0378; J1580; J2405; J2704; J2710; J3010; J3490; J7030; J9280; Q9968

== ENCOUNTER → 2021-05-01 08:46 | Outpatient (BNVA) | payer MEDICARE, SELFPAY | PROVIDERS: PCP Internal Medicine; Visit Provider Urology | DX: C67.9 Malignant neoplasm of bladder, unspecified (principal) | CPT/HCPCS: 81003 ==

== ENCOUNTER → 2021-06-12 14:40 | Outpatient (BNVA) | payer MEDICARE, SELFPAY | PROVIDERS: PCP Internal Medicine; Visit Provider Internal Medicine Cardiovascular Disease | DX: Z79.01 Long term (current) use of anticoagulants (principal) ==

== ENCOUNTER → 2021-06-19 08:32 | Outpatient (BNVA) | payer MEDICARE, SELFPAY | PROVIDERS: PCP Internal Medicine; Visit Provider Internal Medicine Cardiovascular Disease | DX: Z79.01 Long term (current) use of anticoagulants (principal) ==

== ENCOUNTER → 2021-06-25 12:33 | Outpatient (BNVA) | payer MEDICARE, SELFPAY | PROVIDERS: PCP Internal Medicine; Visit Provider Internal Medicine Cardiovascular Disease | DX: Z79.01 Long term (current) use of anticoagulants (principal) ==

== ENCOUNTER 2021-06-30 15:38 | Emergency (ER) | payer MEDICARE, SELFPAY ==
[2021-06-30 16:08] VITALS: BP 126/78; PULSE 68; RESP 18; TEMP 36.7; O2SAT 98; BMI 31.1
--- NOTE | 2021-06-30 16:24 | XRR_ITS ---
PROCEDURE INFORMATION: Exam: XR Left Tibia and Fibula Exam date and time: 06/30/2021 4:33 PM Age: 60 years old Clinical indication: Injury or trauma; Fall; Blunt trauma; Lower leg; Left TECHNIQUE: Imaging protocol: XR Left tibia and fibula. Views: 2 views. COMPARISON: CR XR tibia fibula LT 2V [id number] 09/10/2019 2:10 PM FINDINGS: Bones/joints: Acute nondisplaced oblique fracture of the distal shaft of the fibula. No fracture of the tibia demonstrated. Soft tissues: Distal soft tissue swelling is noted. XR/XR tibia fibula LT 2V [id number] IMPRESSION: Acute nondisplaced fracture of the distal shaft of the fibula.
--- NOTE | 2021-06-30 16:24 | XRR_ITS ---
PROCEDURE INFORMATION: Exam: XR Left Ankle Exam date and time: 06/30/2021 4:33 PM Age: 60 years old Clinical indication: Injury or trauma; Fall; Blunt trauma; Ankle; Left TECHNIQUE: Imaging protocol: XR Left ankle. Views: 3 or more views. COMPARISON: CR XR tibia fibula LT 2V [id number] 09/10/2019 2:10 PM FINDINGS: Bones/joints: Nondisplaced oblique fracture of the distal fibula/lateral malleolus. Distal tibia, talus, and calcaneus appear intact. Soft tissues: Lateral soft tissue swelling noted. XR/XR ankle LT min 3V* [id number] IMPRESSION: Nondisplaced oblique fracture of the distal fibula/lateral malleolus.
--- NOTE | 2021-06-30 16:25 | W.ED.LOWEXIN ---
HPI - Extremity Injury (Lower) General: Chief Complaint: Extremity Injury, Lower Stated Complaint: fall/ankle injury Time Seen by Provider: 06/30/21 16:16 Source: patient Mode of arrival: wheelchair Limitations: no limitations History of Present Illness: Patient is a 60-year-old female presents to ED today with a complaint of left lower leg and ankle pain that she sustained just prior to arrival after she tripped and fell over a computer cord. Patient denies any other injuries or complaints at this time. She states she was able to be weightbearing minimally on the extremity following the fall. Patient did not strike her head or lose consciousness. She has no neck or back pain. MD complaint: leg injury and ankle injury Onset (ago): hour(s) Injury: Left: ankle Type of Injury: inversion Place: home Severity: moderate Relieving factors: immobilization Exacerbating factors: weight bearing, movement and palpation Context: fall Associated symptoms: Reports no associated symptoms Other symptoms: none Review of Systems Musc: Reports: extremity pain (L lower leg), joint pain (L ankle) and joint swelling (lateral L ankle); Denies: neck pain, back pain, extremity swelling, joint redness or joint warmth Neuro: Denies: headache(s), numbness in extremities or sensory changes PFSH ED PFSH: Medical History Afib Bladder cancer Cancer of cervix Cardiomyopathy Cervical myopathy CHF (congestive heart failure) Chronic fatigue Degenerative cervical spinal stenosis Essential (primary) hypertension Hepatitis C Hx of fracture of lower leg Hx of intestinal obstruction Hx of myocardial infarction Hyperlipemia Hypothyroidism Long-term (current) use of anticoagulants, INR goal 2.5-3.5 NSTEMI (non-ST elevated myocardial infarction) Pacemaker Partial tear of rotator cuff Prosthetic aortic valve stenosis Unspecified macular degeneration Valvular heart disease Surgical History Aortic valve prosthesis present History of prosthetic tricuspid valve replacement History of surgery on wrist Hx of hernia repair Hx of hysterectomy Hx of knee surgery Mitral valve replaced S/P cholecystectomy S/P TVR (tricuspid valve repair) 2004 [employer] (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) shunt status Family History Father CAD (coronary artery disease) Other Family history unknown Hypertension Denies family history of Clotting disorder Anesthesia complication Bleeding disorder Social History Alcohol intake: current Alcohol intake frequency: holidays/special occasions only Marital status: Single Current occupational status: disabled History of recent travel: No Physical Exam Const: COMMON NORMALS: no acute distress, patient oriented x3, no limitations and alert GENERAL APPEARANCE: cooperative ORIENTATION/CONSCIOUSNESS: Yes awake, Yes oriented to person, Yes oriented to place and Yes oriented to time HENMT: COMMON NORMALS: normocephalic and atraumatic HEAD & SCALP: normal to inspection, normocephalic and atraumatic FACE & SINUS: normal facial exam Neck/C-Spine: COMMON NORMALS: full ROM CERVICAL SPINE: Yes cervical ROM normal, No pain with cervical ROM, No Cervical spine tenderness, No step off deformity and No Paracervical muscle tenderness Resp: COMMON NORMALS: normal respiratory effort and clear to auscultation bilaterally AUSCULTATION: clear to auscultation bilaterally Cardio: COMMON NORMALS: regular rate and regular rhythm RATE: regular rate RHYTHM: regular rhythm Back/Pelvis: COMMON NORMALS: thoracic and lumbar spine normal to inspection, no thoracic nor lumbar tenderness and thoraco-lumbar ROM normal Extremity: COMMON NORMALS: capillary refill normal and no calf tenderness GENERAL: Yes normal exam except as noted LEFT LOWER EXTREMITY: Yes lower leg (mild tenderness to lateral left lower leg) Left lower leg: Yes neurovascular exam (normal), Yes ankle joint (TTP and swelling to lateral ankle) Left ankle: Yes neurovascular exam (normal ) and Yes foot & digits (no tenderness) Neuro: ABHISHEK COMA SCALE: document GCS findings [place] coma scale eye opening: Spontaneous Abhishek coma scale verbal response: Orientated Abhishek coma scale motor response: Obey commands Abhishek coma scale total score: 15 COMMON NORMALS: patient oriented x3, moves all extremities, no focal motor deficits and no sensory deficits noted SENSORIUM/ORIENTATION: Yes alert, Yes oriented to person, Yes oriented to place and Yes oriented to time Skin: TRAUMA: no lacerations or abrasions Course Vital Signs: Vital signs: Vital Signs Temperature 98.1 F 06/30/21 16:08 Pulse Rate 68 06/30/21 16:08 Respiratory Rate 18 06/30/21 16:08 Blood Pressure 126/78 06/30/21 16:08 Pulse Oximetry 98 06/30/21 16:08 MDM - Extremity Injury (Lower) Medical Decision Making Patient has a nondisplaced distal fibular fracture. There does not appear to be any ankle joint instability. Patient will be placed in a short leg posterior splint and given crutches. Case management referral placed for orthopedic follow-up. Lab Data Radiology Impressions Ankle X-Ray 06/30/21 16:24 IMPRESSION: Nondisplaced oblique fracture of the distal fibula/lateral malleolus. Tibia/Fibula X-Ray 06/30/21 16:24 IMPRESSION: Acute nondisplaced fracture of the distal shaft of the fibula. Discharge Plan Discharge Patient Disposition: Home Clinical Impression: Fracture of distal end of fibula Qualifiers: Encounter type: initial encounter Fracture type: closed Fracture morphology: unspecified fracture morphology Laterality: left Qualified Code(s): S82.832A - Other fracture of upper and lower end of left fibula, initial encounter for closed fracture Condition: Stable Prescriptions: New hydrocodone-acetaminophen 5-325 mg tablet 1 tab PO Q6H PRN (Reason: pain) Qty: 14 0RF No Action diltiazem HCl 360 mg capsule,extended release 24hr See Rx Instructions .ROUTE .COMPLEX Qty: 90 3RF Dose Instruction: TAKE 1 CAPSULE BY MOUTH DAILY Rx Instructions: TAKE 1 CAPSULE BY MOUTH DAILY lisinopril 20 mg tablet See Rx Instructions .ROUTE .COMPLEX Qty: 90 3RF Dose Instruction: TAKE 1 TABLET BY MOUTH DAILY Rx Instructions: TAKE 1 TABLET BY MOUTH DAILY levothyroxine 50 mcg tablet 50 mcg PO DAILY Qty: 90 3RF metoprolol tartrate 100 mg tablet 100 mg PO BID Qty: 180 3RF warfarin 2 mg tablet See Rx Instructions mg .ROUTE .COMPLEX Qty: 90 3RF Hold Instructions: Resume on 12/09/20. Protocol: Dose Management Condition: Wednesday Dose/Route: 3 mg Instruction: 1 x 3 mg tablet Condition: Wednesday Dose/Route: 3 mg Instruction: 1 x 3 mg tablet Condition: Wednesday Dose/Route: 3.5 mg Instruction: 3.5 x 1 mg tablets Condition: Wednesday Dose/Route: 3 mg Instruction: 1 x 3 mg tablet Condition: Dose/Route: 3.5 mg Instruction: 3.5 x 1 mg tablets Condition: Wednesday Dose/Route: 3 mg Instruction: 1 x 3 mg tablet Condition: Wednesday Dose/Route: 3.5 mg Instruction: 3.5 x 1 mg tablets Protocol Text: Adjustment Start Date: Wednesday06/25/21 INR Value: 3.0 INR Date: 06/24/21 Recheck Date: 07/02/21 Dose Instruction: TAKE 1 TABLET BY MOUTH DIRECTED PER INR Rx Instructions: TAKE 1 TABLET BY MOUTH DIRECTED PER INR warfarin 1 mg tablet 1 mg PO DIRECTED Qty: 90 1RF Hold Instructions: Resume on 12/09/20. Protocol: Dose Management Condition: Wednesday Dose/Route: 3 mg Instruction: 1 x 3 mg tablet Condition: Wednesday Dose/Route: 3 mg Instruction: 1 x 3 mg tablet Condition: Wednesday Dose/Route: 3.5 mg Instruction: 3.5 x 1 mg tablets Condition: Wednesday Dose/Route: 3 mg Instruction: 1 x 3 mg tablet Condition: Dose/Route: 3.5 mg Instruction: 3.5 x 1 mg tablets Condition: Wednesday Dose/Route: 3 mg Instruction: 1 x 3 mg tablet Condition: Wednesday Dose/Route: 3.5 mg Instruction: 3.5 x 1 mg tablets Protocol Text: Adjustment Start Date: Wednesday06/25/21 INR Value: 3.0 INR Date: 06/24/21 Recheck Date: 07/02/21 warfarin 3 mg tablet 3 mg PO DAILY Qty: 90 3RF Hold Instructions: Resume on 12/09/20. Protocol: Dose Management Condition: Wednesday Dose/Route: 3 mg Instruction: 1 x 3 mg tablet Condition: Wednesday Dose/Route: 3 mg Instruction: 1 x 3 mg tablet Condition: Wednesday Dose/Route: 3.5 mg Instruction: 3.5 x 1 mg tablets Condition: Wednesday Dose/Route: 3 mg Instruction: 1 x 3 mg tablet Condition: Dose/Route: 3.5 mg Instruction: 3.5 x 1 mg tablets Condition: Wednesday Dose/Route: 3 mg Instruction: 1 x 3 mg tablet Condition: Wednesday Dose/Route: 3.5 mg Instruction: 3.5 x 1 mg tablets Protocol Text: Adjustment Start Date: Wednesday06/25/21 INR Value: 3.0 INR Date: 06/24/21 Recheck Date: 07/02/21 Rx Instructions: see protocol aspirin [Aspir-81] 81 mg Tablet,Delayed Release (Dr/Ec) 81 mg PO DAILY 0RF Hold Instructions: Resume on 12/07/20. Discharge Orders: Discharge ED (Routine); Ordered 06/30/21 Ordered By: Vidhya Lou Referrals: Dominick Abernathy MD [Primary Care Provider] - Patient Instructions: Ankle Fracture (ED), Leg Fracture (ED) Activity Restrictions/Additional Instructions: As we discussed case management should contact you shortly to set you up with your orthopedic follow-up appointment. Nonweightbearing until told otherwise by orthopedics. You may ice and elevate the extremity to help with discomfort and swelling. Coding Level of Care Code ED Silo Filler for Salvatoreg Fwd Exam Comprehensive
--- NOTE | 2021-07-01 09:45 | DCPLANNER ---
Addendum entered by Margaux Barragan 07/18/21 08:47: Patient had a follow up appointment scheduled with ortho - patient did attend appointment. Addendum entered by Margaux Barragan 07/02/21 07:58: Patient has a follow up appointment scheduled for Wednesday, July 02, 2021 at 2:[address] Robledo at ortho. Clinic will call patient with appointment information. Original Note: manager business planning had message to schedule a follow up appointment for patient with ortho. manager business planning called the ortho clinic, spoke with Ida, gave clinic patients information. manager business planning was told that patients information would be printed and reviewed. Clinic will call patient with appointment information.
== END 2021-06-30 17:16 | disposition home or self-care (01) ==
PROVIDERS: Emergency Provider Physician Assistant; PCP Internal Medicine
DX: S82.832A Other fracture of upper and lower end of left fibula, initial encounter for closed fracture (principal); Z79.01 Long term (current) use of anticoagulants; Z79.82 Long term (current) use of aspirin; Z85.41 Personal history of malignant neoplasm of cervix uteri; Z85.51 Personal history of malignant neoplasm of bladder; I11.0 Hypertensive heart disease with heart failure; I50.9 Heart failure, unspecified; Z86.19 Personal history of other infectious and parasitic diseases; I25.2 Old myocardial infarction; E78.5 Hyperlipidemia, unspecified; Z95.0 Presence of cardiac pacemaker; W18.09XA Striking against other object with subsequent fall, initial encounter
CPT/HCPCS: 73590; 73610; 99283; E0114

== ENCOUNTER → 2021-07-02 14:45 | Outpatient (BNVA) | payer MEDICARE, SELFPAY | PROVIDERS: PCP Internal Medicine; Visit Provider Internal Medicine Cardiovascular Disease | DX: S82.832A Other fracture of upper and lower end of left fibula, initial encounter for closed fracture (principal); X58.XXXA Exposure to other specified factors, initial encounter | CPT/HCPCS: 73600 ==

== ENCOUNTER 2021-07-02 16:06 | Outpatient (CLI) | payer MEDICARE, SELFPAY | END 2021-07-02 16:07 | disposition home or self-care (01) | LOC: SPT 16:07 | PROVIDERS: PCP Internal Medicine; Visit Provider Specialist | DX: Z46.89 Encounter for fitting and adjustment of other specified devices (principal); S82.839D Other fracture of upper and lower end of unspecified fibula, subsequent encounter for closed fracture with routine healing; X58.XXXD Exposure to other specified factors, subsequent encounter | CPT/HCPCS: 97760; L4361 ==

== ENCOUNTER → 2021-07-08 08:54 | Outpatient (BNVA) | payer MEDICARE, SELFPAY | PROVIDERS: PCP Internal Medicine; Visit Provider Internal Medicine Cardiovascular Disease | DX: I48.20 Chronic atrial fibrillation, unspecified (principal); Z95.2 Presence of prosthetic heart valve; Z79.01 Long term (current) use of anticoagulants ==

== ENCOUNTER → 2021-07-11 11:35 | Outpatient (BNVA) | payer MEDICARE, SELFPAY | PROVIDERS: PCP Internal Medicine; Visit Provider Internal Medicine Cardiovascular Disease | DX: I48.20 Chronic atrial fibrillation, unspecified (principal); Z95.0 Presence of cardiac pacemaker ==

== ENCOUNTER → 2021-07-18 12:28 | Outpatient (BNVA) | payer MEDICARE, SELFPAY | PROVIDERS: PCP Internal Medicine; Visit Provider Internal Medicine Cardiovascular Disease | DX: Z79.01 Long term (current) use of anticoagulants (principal) ==

== ENCOUNTER → 2021-07-23 09:00 | Outpatient (BNVA) | payer MEDICARE, SELFPAY | PROVIDERS: PCP Internal Medicine; Visit Provider Internal Medicine | DX: E03.9 Hypothyroidism, unspecified (principal) | CPT/HCPCS: 84443 ==

== ENCOUNTER → 2021-07-28 10:49 | Outpatient (BNVA) | payer MEDICARE, SELFPAY | PROVIDERS: PCP Internal Medicine; Visit Provider Specialist | DX: S82.832A Other fracture of upper and lower end of left fibula, initial encounter for closed fracture (principal); X58.XXXA Exposure to other specified factors, initial encounter; Z87.891 Personal history of nicotine dependence; Z46.89 Encounter for fitting and adjustment of other specified devices; S82.832D Other fracture of upper and lower end of left fibula, subsequent encounter for closed fracture with routine healing; X58.XXXD Exposure to other specified factors, subsequent encounter | CPT/HCPCS: 73610; 97760; L1902 ==

== ENCOUNTER 2021-07-28 11:49 | Outpatient (CLI) | payer MEDICARE, SELFPAY | END 2021-07-28 11:50 | disposition home or self-care (01) | LOC: SPT 11:50 | PROVIDERS: PCP Internal Medicine; Visit Provider Specialist | DX: Z46.89 Encounter for fitting and adjustment of other specified devices (principal); S82.832D Other fracture of upper and lower end of left fibula, subsequent encounter for closed fracture with routine healing; X58.XXXD Exposure to other specified factors, subsequent encounter | CPT/HCPCS: 97760; L1902 ==

== ENCOUNTER → 2021-07-29 15:15 | Outpatient (BNVA) | payer MEDICARE, SELFPAY | PROVIDERS: PCP Internal Medicine; Visit Provider Internal Medicine Cardiovascular Disease | DX: Z79.01 Long term (current) use of anticoagulants (principal) ==

== ENCOUNTER → 2021-07-31 09:33 | Outpatient (BNVA) | payer MEDICARE, SELFPAY | PROVIDERS: PCP Internal Medicine; Visit Provider Urology | DX: C67.9 Malignant neoplasm of bladder, unspecified (principal) | CPT/HCPCS: 81003 ==

== ENCOUNTER → 2021-08-06 08:49 | Outpatient (BNVA) | payer MEDICARE, SELFPAY | PROVIDERS: PCP Internal Medicine; Visit Provider Internal Medicine Cardiovascular Disease | DX: Z79.01 Long term (current) use of anticoagulants (principal) ==

== ENCOUNTER → 2021-08-15 09:36 | Outpatient (BNVA) | payer MEDICARE, SELFPAY | PROVIDERS: PCP Internal Medicine; Visit Provider Internal Medicine Cardiovascular Disease | DX: Z79.01 Long term (current) use of anticoagulants (principal) ==

== ENCOUNTER → 2021-08-25 10:14 | Outpatient (BNVA) | payer MEDICARE, SELFPAY | PROVIDERS: PCP Internal Medicine; Visit Provider Nurse Practitioner Family | DX: S82.839A Other fracture of upper and lower end of unspecified fibula, initial encounter for closed fracture (principal); X58.XXXA Exposure to other specified factors, initial encounter | CPT/HCPCS: 73610 ==

== ENCOUNTER → 2021-09-05 12:59 | Outpatient (BNVA) | payer MEDICARE, SELFPAY | PROVIDERS: PCP Internal Medicine; Visit Provider Internal Medicine Cardiovascular Disease | DX: Z79.01 Long term (current) use of anticoagulants (principal) ==

== ENCOUNTER → 2021-09-19 08:53 | Outpatient (BNVA) | payer MEDICARE, SELFPAY | PROVIDERS: PCP Internal Medicine; Visit Provider Internal Medicine Cardiovascular Disease | DX: Z79.01 Long term (current) use of anticoagulants (principal) ==

== ENCOUNTER → 2021-09-25 16:05 | Outpatient (BNVA) | payer MEDICARE, SELFPAY | PROVIDERS: PCP Internal Medicine; Visit Provider Internal Medicine Cardiovascular Disease | DX: Z79.01 Long term (current) use of anticoagulants (principal) ==

== ENCOUNTER → 2021-10-01 16:33 | Outpatient (BNVA) | payer MEDICARE, SELFPAY | PROVIDERS: PCP Internal Medicine; Visit Provider Internal Medicine Cardiovascular Disease | DX: Z79.01 Long term (current) use of anticoagulants (principal) ==

== ENCOUNTER 2021-10-02 11:58 | Emergency (ER) | payer MEDICARE, SELFPAY ==
[2021-10-02] VITALS (8 sets, daily range): BP systolic 129–157; BP diastolic 88–111; PULSE 66–95; RESP 16; TEMP 36.6; O2SAT 94–98
--- NOTE | 2021-10-02 12:03 | CT_ITS ---
WS: [id number] CT HEAD TECHNIQUE: Noncontrast CT of the head obtained from the skullbase to the vertex. CLINICAL INFORMATION: headache, [employer] shunt COMPARISON: June 18, 2019 DLP: 847.[address] scans at [facility] use at least one of these dose optimization techniques: automated e xposure control; mA and/or kV adjustment per patient size (includes targeted exams where dose is matc hed to clinical indication); or iterative reconstruction. FINDINGS: RIGHT frontal craniotomy with shunt catheter in the suprasellar cistern. This is unchanged since 2019. No hydrocephalus. Ventricles are decompressed and appear unchanged in size from previous. Basal cisterns remain patent. Normal barragan-white differentiation. No extra-axial fluid collections. N o evidence of mass or mass effect. Paranasal sinuses are well aerated. Mastoid air cells are well aerated. Normal posterior nasopharynx. . CT/CT head wo con* [id number] IMPRESSION: 1. Stable RIGHT frontal shunt catheter tip in the suprasellar cistern. No hydr ocephalus. 2. Ventricular system is decompressed and unchanged compared to previous. 3. No acute intracranial findings.
--- NOTE | 2021-10-02 12:03 | XR_ITS ---
WS: [id number] Exam: XR shunt series Date/Time of Exam: 10/02/2021 12:17 PM Reason For Exam: headache A right-sided in CSF shunt catheter is noted. The catheter is intact along the skull, the right neck and the chest. An ICD is seen over the left chest in the lead appears to be fractured. Signs of cardi ac valve replacement. No acute process in the chest. Mild cardiac enlargement. XR/XR shunt series IMPRESSION: 1. Right-sided CSF shunt catheter in place. The catheter is intact as visualiz ed along the skull, right neck and chest. The catheter is difficult to visualiz e below the diaphragm.
--- NOTE | 2021-10-02 12:32 | ECG_ITS ---
[facility] Test Date: 2021-10-02 Pat Name: Maryuri Abernathy Department: Room: Gender: Female [employer] Rolls: : [id number] Requested By: Melissa Herron Order Number: [id number] Clary MD: Pelon Callejas M.D. Measurements Intervals [place] Rate: 66 P: AL: QRS: 118 QRSD: 154 T: -35 QT: 442 QTc: 466 Interpretive Statements ELECTRONIC VENTRICULAR PACEMAKER ABNORMAL RHYTHM ECG Compared to ECG 12/05/2020 13:29:42 Ectopic atrial rhythm no longer present Intraventricular conduction delay no longer present ST (T wave) deviation no longer present Electronically Signed On 10-02-2021 22:30:03 CDT by Pelon Callejas M.D. [email or web address]
--- NOTE | 2021-10-02 12:36 | W.ED.DIZZY ---
HPI - Dizziness General: Chief Complaint: Dizziness Stated Complaint: head pain, shunt issues Time Seen by Provider: 10/02/21 12:03 [facility]SH: Medical History Afib Bladder cancer Cancer of cervix Cardiomyopathy Cervical myopathy CHF (congestive heart failure) Chronic fatigue Degenerative cervical spinal stenosis Essential (primary) hypertension Hepatitis C Hx of fracture of lower leg Hx of intestinal obstruction Hx of myocardial infarction Hyperlipemia Hypothyroidism Long-term (current) use of anticoagulants, INR goal 2.5-3.5 NSTEMI (non-ST elevated myocardial infarction) Pacemaker Partial tear of rotator cuff Prosthetic aortic valve stenosis Unspecified macular degeneration Valvular heart disease Surgical History Aortic valve prosthesis present History of prosthetic tricuspid valve replacement History of surgery on wrist Hx of hernia repair Hx of hysterectomy Hx of knee surgery Mitral valve replaced S/P cholecystectomy S/P TVR (tricuspid valve repair) 2004 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 ROOM SUPERVISOR (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) shunt status Family History Father CAD (coronary artery disease) Other Family history unknown Hypertension Denies family history of Clotting disorder Anesthesia complication Bleeding disorder Social History Smoking and tobacco status: former smoker Alcohol intake: current Alcohol intake frequency: holidays/special occasions only Marital status: Single Current occupational status: disabled History of recent travel: No Course Vital Signs: Vital signs: Vital Signs Temperature 97.8 F 10/02/21 12:09 Pulse Rate 83 10/02/21 12:09 Respiratory Rate 16 10/02/21 12:09 Blood Pressure 157/93 10/02/21 12:09 Pulse Oximetry 98 10/02/21 12:09 Discharge Plan Discharge Condition: Stable Prescriptions: No Action warfarin 1 mg tablet 1 mg PO DIRECTED Qty: 90 1RF Hold Instructions: Resume on 12/09/20. Protocol: Dose Management Condition: Wednesday Dose/Route: 3 mg Instruction: 1 x 3 mg tablet Condition: Wednesday Dose/Route: 3 mg Instruction: 1 x 3 mg tablet Condition: Wednesday Dose/Route: 3.5 mg Instruction: 3.5 x 1 mg tablets Condition: Wednesday Dose/Route: 3 mg Instruction: 1 x 3 mg tablet Condition: Dose/Route: 3.5 mg Instruction: 3.5 x 1 mg tablets Condition: Wednesday Dose/Route: 3 mg Instruction: 1 x 3 mg tablet Condition: Wednesday Dose/Route: 3.5 mg Instruction: 3.5 x 1 mg tablets Protocol Text: Adjustment Start Date: Wednesday10/01/21 INR Value: 2.6 INR Date: 09/29/21 Recheck Date: 10/08/21 warfarin 3 mg tablet 3 mg PO DAILY Qty: 90 3RF Hold Instructions: Resume on 12/09/20. Protocol: Dose Management Condition: Wednesday Dose/Route: 3 mg Instruction: 1 x 3 mg tablet Condition: Wednesday Dose/Route: 3 mg Instruction: 1 x 3 mg tablet Condition: Wednesday Dose/Route: 3.5 mg Instruction: 3.5 x 1 mg tablets Condition: Wednesday Dose/Route: 3 mg Instruction: 1 x 3 mg tablet Condition: Dose/Route: 3.5 mg Instruction: 3.5 x 1 mg tablets Condition: Wednesday Dose/Route: 3 mg Instruction: 1 x 3 mg tablet Condition: Wednesday Dose/Route: 3.5 mg Instruction: 3.5 x 1 mg tablets Protocol Text: Adjustment Start Date: Wednesday10/01/21 INR Value: 2.6 INR Date: 09/29/21 Recheck Date: 10/08/21 Rx Instructions: see protocol levothyroxine 50 mcg tablet 50 mcg PO DAILY Qty: 7 0RF Rx Instructions: pATIENT NEEDS LAB WORK warfarin 2 mg tablet See Rx Instructions mg .ROUTE .COMPLEX Qty: 90 3RF Hold Instructions: Resume on 12/09/20. Protocol: Dose Management Condition: Wednesday Dose/Route: 3 mg Instruction: 1 x 3 mg tablet Condition: Wednesday Dose/Route: 3 mg Instruction: 1 x 3 mg tablet Condition: Wednesday Dose/Route: 3.5 mg Instruction: 3.5 x 1 mg tablets Condition: Wednesday Dose/Route: 3 mg Instruction: 1 x 3 mg tablet Condition: Dose/Route: 3.5 mg Instruction: 3.5 x 1 mg tablets Condition: Wednesday Dose/Route: 3 mg Instruction: 1 x 3 mg tablet Condition: Wednesday Dose/Route: 3.5 mg Instruction: 3.5 x 1 mg tablets Protocol Text: Adjustment Start Date: Wednesday10/01/21 INR Value: 2.6 INR Date: 09/29/21 Recheck Date: 10/08/21 Dose Instruction: TAKE 1 TABLET BY MOUTH DIRECTED PER INR Rx Instructions: TAKE 1 TABLET BY MOUTH DIRECTED PER INR lisinopril 20 mg tablet 20 mg PO DAILY Qty: 90 3RF diltiazem HCl 360 mg capsule,extended release 24hr 360 mg PO DAILY Qty: 60 0RF Rx Instructions: MUST BE SEEN PRIOR TO REFILLS metoprolol tartrate 100 mg tablet 100 mg PO BID Qty: 180 3RF Rx Instructions: Do not discontinue unless approved per Dr Montelongo. aspirin [Aspir-81] 81 mg Tablet,Delayed Release (/Ec) 81 mg PO DAILY 0RF Hold Instructions: Resume on 12/07/20. Referrals: Dominick Abernathy MD [Primary Care Provider] - Coding Level of Care Code ED Brick Cleaner for Magen Brown
--- NOTE | 2021-10-02 12:38 | ED_ITS ---
HPI - General Adult General: Chief complaint: Dizziness Stated complaint: head pain, shunt issues Time Seen by Provider: 10/02/21 12:03 History of Present Illness: Patient is a 60-year-old female with a history of atrial fibrillation, hypothyroidism, hypertension, AVR, QUICK SKETCH ARTIST shunt who presents the emergency room for concerns of lightheadedness, nausea vomiting, decreased p.o. intake and generalized weakness for the last 3 days. Patient tells me that 2 weeks ago she was bitten by 2 ticks and has redness on her right anterior thigh. Since 3 days ago, patient has had significant nausea and lightheadedness. Patient denies any episode of emesis with reports decreased p.o. intake. Patient tells me she is concerned about her QUICK SKETCH ARTIST shunt. Patient denies any associated chest pain, shortness of breath, palpitation, diarrhea melena/hematochezia or complaints at this time. Patient also denies any cough runny nose sore throat. Patient denies any bull's-eye rash on her body. Onset:3 days ago Duration:3 days Location:home Severity:mild/moderate Associated symptoms: Reports headache(s) and nausea; Deny chest pain, dyspnea, rash, palpitations or vomiting Review of Systems Const: Denies: fever(s) or chills Eyes: Denies: change in vision ENMT: Denies: mouth pain Card: Denies: chest pain or palpitations Resp: Denies: dyspnea or non-productive cough GI: Reports: nausea; Denies: abdominal pain, vomiting or diarrhea : Denies: dysuria Musc: Denies: extremity pain Skin/Breast: Denies: rash or new lesions Neuro: Reports: headache(s) and other (+light-headedness); Denies: weakness in extremities Psych: Reports: other (Normal mood) John/Lymph: Denies: easy bruising PFSH ED PFSH: Medical History Afib Bladder cancer Cancer of cervix Cardiomyopathy Cervical myopathy CHF (congestive heart failure) Chronic fatigue Degenerative cervical spinal stenosis Essential (primary) hypertension Hepatitis C Hx of fracture of lower leg Hx of intestinal obstruction Hx of myocardial infarction Hyperlipemia Hypothyroidism Long-term (current) use of anticoagulants, INR goal 2.5-3.5 NSTEMI (non-ST elevated myocardial infarction) Pacemaker Partial tear of rotator cuff Prosthetic aortic valve stenosis Unspecified macular degeneration Valvular heart disease Surgical History Aortic valve prosthesis present History of prosthetic tricuspid valve replacement History of surgery on wrist Hx of hernia repair Hx of hysterectomy Hx of knee surgery Mitral valve replaced S/P cholecystectomy S/P TVR (tricuspid valve repair) 2004 QUICK SKETCH ARTIST (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) shunt status Family History Father CAD (coronary artery disease) Other Family history unknown Hypertension Denies family history of Clotting disorder Anesthesia complication Bleeding disorder Social History Smoking and tobacco status: former smoker Alcohol intake: current Alcohol intake frequency: holidays/special occasions only Marital status: Single Current occupational status: disabled History of recent travel: No Physical Exam Const: COMMON NORMALS: alert HENMT: COMMON NORMALS: atraumatic HEAD & SCALP: atraumatic MOUTH: moist mucous membranes not abnormal Eye: COMMON NORMALS: EOMs intact bilaterally and conjunctivae normal CONJUNCTIVA: Yes conjunctivae normal Neck/C-Spine: COMMON NORMALS: full ROM and supple Resp: COMMON NORMALS: normal respiratory effort and clear to auscultation bilaterally AUSCULTATION: clear to auscultation bilaterally Cardio: COMMON NORMALS: regular rate RATE: regular rate GI: COMMON NORMALS: Soft to palpation and non-tender PALPATION: Yes Soft to palpation Extremity: COMMON NORMALS: full ROM Neuro: SENSORIUM/ORIENTATION: Yes alert MOTOR EXAM: No Abnormal motor strength present and Other motor observations present (no focal motor deficits) Psych: COMMON NORMALS: speech normal SPEECH: Yes normal speech MOOD & AFFECT: Yes euthymic mood Course Vital Signs: Vital signs: Vital Signs Temperature 97.8 F 10/02/21 12:09 Pulse Rate 69 10/02/21 16:57 Respiratory Rate 16 10/02/21 12:09 Blood Pressure 153/91 10/02/21 16:57 Pulse Oximetry 94 10/02/21 16:57 [facility] - General Adult Medical Decision Making 60-year-old female with history of atrial fibrillation, hypothyroidism, hypertension, AVR, QUICK SKETCH ARTIST shunt who presents the emergency room for concerns of lightheadedness, nausea vomiting, decreased p.o. intake and generalized weakness for the last 3 days. No focal findings on physical exam. QUICK SKETCH ARTIST shunt and shunt series did not show any focal findings. Patient has 2 troponin within normal limit. EKG is nonischemic. Doubt ACS/PE or other emergent causes of light-headedness. No suspicion for aortic dissection given no widened mediastinum, 2+ upper extremity pulses, or tearing pain. No suspicion for PE given no pleuritic chest pain, recent immobilization or surgery hemoptysis, or other VTE risk factors. EKG is non-ischemic. XR normal. Patient received IVF and is able to tolerate p.o. patient reports feeling symptomatically improved. Patient has allergies to penicillin and tetracycline. Case was discussed with Tommy from pharmacy recommended cefuroxime for treatment of tick bites. Rx: cefuroxime BID for tick infection Disposition: Discharge. Patient counseled regarding diagnostic impression, treatment plan. Patient given ED strict return precautions to return for continuation, worsening, or development of new symptoms. Instructed to f/u w/ PCP regarding symptoms today. Patient verbalized understanding. Lab Data : 10/02/21 13:35 10/02/21 13:[address] 10/02/21 12:03 IMPRESSION: 1. Stable RIGHT frontal shunt catheter tip in the suprasellar cistern. No hydrocephalus. 2. Ventricular system is decompressed and unchanged compared to previous. 3. No acute intracranial findings. Imaging Shunt Series 10/02/21 12:03 IMPRESSION: 1. Right-sided CSF shunt catheter in place. The catheter is intact as visualized along the skull, right neck and chest. The catheter is difficult to visualize below the diaphragm. Laboratory Results WBC 11.0 10^3/uL (4.0-10.0) H 10/02/21 13:35 RBC 4.77 10^6/uL (4.1-5.3) 10/02/21 13:35 Hgb 14.5 g/dL (11.5-15.3) 10/02/21 13:35 Hct 42.3 % (37.0-47.0) 10/02/21 13:35 MCV 88.7 fl (81-99) 10/02/21 13:35 MCH 30.4 pg (28.0-34.0) 10/02/21 13:35 MCHC 34.3 g/dL (30.0-36.0) 10/02/21 13:35 RDW 12.4 % (12.1-15.1) 10/02/21 13:35 Plt Count 308 10^3/cmm (130-400) 10/02/21 13:35 MPV 10.6 fL (7.4-10.4) H 10/02/21 13:35 Neut % (Auto) 73.3 % 10/02/21 13:35 Lymph % (Auto) 17.4 % 10/02/21 13:35 [place] % (Auto) 7.8 % 10/02/21 13:35 Eos % (Auto) 0.4 % 10/02/21 13:35 Baso % (Auto) 0.6 % 10/02/21 13:35 Neut # (Auto) 8.05 10^3/uL (1.8-7.7) H 10/02/21 13:35 Lymph # (Auto) 1.9 10^3/uL (0.8-4.8) 10/02/21 13:35 [place] # (Auto) 0.9 10^3/uL (0.2-0.9) 10/02/21 13:35 Eos # (Auto) 0.0 10^3/uL (0.0-0.8) 10/02/21 13:35 Baso # (Auto) 0.1 10^3/uL (0.0-0.1) 10/02/21 13:35 Nucleated RBC % (auto) 0 % 10/02/21 13:35 Nucleated RBCs # 0.0 /100WBC 10/02/21 13:35 Sodium 139 mmol/L (136-145) 10/02/21 13:35 Potassium 3.8 mmol/L (3.5-5.1) 10/02/21 13:35 Chloride 102 mmol/L (98-107) 10/02/21 13:35 Carbon Dioxide 23 mmol/L (22-29) 10/02/21 13:35 Anion Gap 17.8 (5-19) 10/02/21 13:35 BUN 14 mg/dL (8-23) 10/02/21 13:35 Creatinine 0.9 mg/dL (0.5-0.9) 10/02/21 13:35 GFR Calculation 63.4 mL/min (90-130) L 10/02/21 13:35 Glucose 94 mg/dL (65-115) 10/02/21 13:35 Calculated Osmolality 288 mOsm/kg (285-295) 10/02/21 13:35 Calcium 10.0 mg/dL (8.5-10.5) 10/02/21 13:35 Troponin T Baseline 8 ng/L (0-10) 10/02/21 13:35 Troponin T 120 Minute 8.22 ng/L (0-10) 10/02/21 16:10 Delta Troponin T 0.22 ABS# (0-10) 10/02/21 16:10 TSH 2.86 uIU/mL (0.27-4.20) 10/02/21 13:35 Free T4 1.14 ng/dL (0.82-1.77) 10/02/21 13:35 Imaging Data Other Imaging: Radiologist's impression: [address] [address] XRay Report Signed Patient: Maryuri Abernathy Unit #: [id number] : 1960 Age/Sex: 60 / F ADM Date: 10/02/21 Loc: ER Room/Bed: Attending Dr: Ordering Provider/Ordering MD: Melissa Herron MD Date of Service: 10/02/21 Procedure(s): XR shunt series Accession Number(s): [id number] Report Number: [id number] WS: [id number] Exam: XR shunt series Date/Time of Exam: 10/02/2021 12:17 PM Reason For Exam: headache A right-sided in CSF shunt catheter is noted. The catheter is intact along the skull, the right neck and the chest. An ICD is seen over the left chest in the lead appears to be fractured. Signs of cardiac valve replacement. No acute process in the chest. Mild cardiac enlargement. XR/XR shunt series IMPRESSION: 1. Right-sided CSF shunt catheter in place. The catheter? is intact as visualized along the skull, right neck and chest. The catheter is difficult to visualize below the diaphragm. ? Dictated By: Reginald Nowak DO Signed By: Reginald Nowak DO Signed Date/Time: 10/02/21 1258 DD/ 1250 [facility] [address] [facility] [place] [address] CT Scan Report Signed Patient: Maryuri Abernathy Unit #: [id number] : 1960 Age/Sex: 60 / F ADM Date: 10/02/21 Loc: ER Room/Bed: Attending Dr: Ordering Provider/Ordering MD: Melissa Herron MD Date of Service: 10/02/21 Procedure(s): CT head wo con* [id number] Accession Number(s): [id number] Report Number: [id number] WS: [id number] CT HEAD TECHNIQUE: Noncontrast CT of the head obtained from the skullbase to the vertex. CLINICAL INFORMATION: headache, vp integrity shunt COMPARISON: June 18, 2019 DLP: 847.[address] scans at [facility] use at least one of these dose optimization techniques: automated exposure control; mA and/or kV adjustment per patient size (includes targeted exams where dose is matched to clinical indication); or iterative reconstruction. FINDINGS: RIGHT frontal craniotomy with shunt catheter in the suprasellar cistern. This is unchanged since June 18, 2019. No hydrocephalus. Ventricles are decompressed and appear unchanged in size from previous. Basal cisterns remain patent. Normal barragan-white differentiation. No extra-axial fluid collections. No evidence of mass or mass effect. Paranasal sinuses are well aerated. Mastoid air cells are well aerated. Normal posterior nasopharynx. . CT/CT head wo con* [id number] IMPRESSION: ? 1.? Stable RIGHT frontal shunt catheter tip in the suprasellar cistern. No hydrocephalus. 2.? Ventricular system is decompressed and unchanged compared to previous. 3.? No acute intracranial findings. ? ? Dictated By: Josh Garcia MD Signed By: Josh Garcia MD Signed Date/Time: 10/02/21 1302 DD/ 1258 Discharge Plan Discharge Patient Disposition: Home Clinical Impression: Light headedness Condition: Stable Prescriptions: New cefuroxime axetil 500 mg tablet 500 mg PO BID 14 Days Qty: 28 0RF No Action warfarin 1 mg tablet 1 mg PO DIRECTED Qty: 90 1RF Hold Instructions: Resume on 12/09/20. Protocol: Dose Management Condition: Wednesday Dose/Route: 3 mg Instruction: 1 x 3 mg tablet Condition: Wednesday Dose/Route: 3 mg Instruction: 1 x 3 mg tablet Condition: Wednesday Dose/Route: 3.5 mg Instruction: 3.5 x 1 mg tablets Condition: Wednesday Dose/Route: 3 mg Instruction: 1 x 3 mg tablet Condition: Dose/Route: 3.5 mg Instruction: 3.5 x 1 mg tablets Condition: Wednesday Dose/Route: 3 mg Instruction: 1 x 3 mg tablet Condition: Wednesday Dose/Route: 3.5 mg Instruction: 3.5 x 1 mg tablets Protocol Text: Adjustment Start Date: Wednesday10/01/21 INR Value: 2.6 INR Date: 09/29/21 Recheck Date: 10/08/21 warfarin 3 mg tablet 3 mg PO DAILY Qty: 90 3RF Hold Instructions: Resume on 12/09/20. Protocol: Dose Management Condition: Wednesday Dose/Route: 3 mg Instruction: 1 x 3 mg tablet Condition: Wednesday Dose/Route: 3 mg Instruction: 1 x 3 mg tablet Condition: Wednesday Dose/Route: 3.5 mg Instruction: 3.5 x 1 mg tablets Condition: Wednesday Dose/Route: 3 mg Instruction: 1 x 3 mg tablet Condition: Dose/Route: 3.5 mg Instruction: 3.5 x 1 mg tablets Condition: Wednesday Dose/Route: 3 mg Instruction: 1 x 3 mg tablet Condition: Wednesday Dose/Route: 3.5 mg Instruction: 3.5 x 1 mg tablets Protocol Text: Adjustment Start Date: Wednesday10/01/21 INR Value: 2.6 INR Date: 09/29/21 Recheck Date: 10/08/21 Rx Instructions: see protocol levothyroxine 50 mcg tablet 50 mcg PO DAILY Qty: 7 0RF Rx Instructions: pATIENT NEEDS LAB WORK warfarin 2 mg tablet See Rx Instructions mg .ROUTE .COMPLEX Qty: 90 3RF Hold Instructions: Resume on 12/09/20. Protocol: Dose Management Condition: Wednesday Dose/Route: 3 mg Instruction: 1 x 3 mg tablet Condition: Wednesday Dose/Route: 3 mg Instruction: 1 x 3 mg tablet Condition: Wednesday Dose/Route: 3.5 mg Instruction: 3.5 x 1 mg tablets Condition: Wednesday Dose/Route: 3 mg Instruction: 1 x 3 mg tablet Condition: Dose/Route: 3.5 mg Instruction: 3.5 x 1 mg tablets Condition: Wednesday Dose/Route: 3 mg Instruction: 1 x 3 mg tablet Condition: Wednesday Dose/Route: 3.5 mg Instruction: 3.5 x 1 mg tablets Protocol Text: Adjustment Start Date: Wednesday10/01/21 INR Value: 2.6 INR Date: 09/29/21 Recheck Date: 10/08/21 Dose Instruction: TAKE 1 TABLET BY MOUTH DIRECTED PER INR Rx Instructions: TAKE 1 TABLET BY MOUTH DIRECTED PER INR lisinopril 20 mg tablet 20 mg PO DAILY Qty: 90 3RF diltiazem HCl 360 mg capsule,extended release 24hr 360 mg PO DAILY Qty: 60 0RF Rx Instructions: MUST BE SEEN PRIOR TO REFILLS metoprolol tartrate 100 mg tablet 100 mg PO BID Qty: 180 3RF Rx Instructions: Do not discontinue unless approved per Dr Montelongo. aspirin [Aspir-81] 81 mg Tablet,Delayed Release (Dr/Ec) 81 mg PO DAILY 0RF Hold Instructions: Resume on 12/07/20. Discharge Orders: Discharge ED (Routine); Ordered 10/02/21 Ordered By: Melissa Herron Referrals: Dominick Abernathy MD [Primary Care Provider] - Discharge Diet: Advance as tolerated Discharge Activity: Increase activity as tolerated Patient Instructions: Near Syncope (ED) Activity Restrictions/Additional Instructions: Come back to the emergency room if your chest pain worsens, have any fever or chills, worsening shortness of breath, worsening exertional lightheadedness, or any new or concerning complaints. Coding Level of Care Code ED Health Promotion Officer for Magen Fwnaima Exam Comprehensive
[2021-10-02] MEDS: sodium chloride 0.9% 1,000 ML 999 ML IV (13:39)
[2021-10-02 13:46] LABS: Basophils # 0.1 10^3/uL (0.0-0.1); Basophils % 0.6 %; Eosinophils % 0.4 %; Hematocrit 42.3 % (37.0-47.0); Hemoglobin 14.5 g/dL (11.5-15.3); Lymphocytes # 1.9 10^3/uL (0.8-4.8); Lymphocytes % 17.4 %; Mean Corpuscular HGB Conc 34.3 g/dL (30.0-36.0); Mean Corpuscular Hemoglobin 30.4 pg (28.0-34.0); Mean Corpuscular Volume 88.7 fl (81-99); Mean Platelet Volume 10.6 fL (7.4-10.4); Monocytes # 0.9 10^3/uL (0.2-0.9); Monocytes % 7.8 %; Neutrophils # 8.05 10^3/uL (1.8-7.7); Neutrophils % 73.3 %; Nucleated Red Blood Cells % 0 %; Platelet Count 308 10^3/cmm (130-400); Red Blood Count 4.77 10^6/uL (4.1-5.3); Red Cell Distribution Width 12.4 % (12.1-15.1)
[2021-10-02 14:05] LABS: Troponin(5th) Baseline 8 ng/L (0-10)
[2021-10-02 14:08] LABS: Anion Gap 17.8 (5-19); Blood Urea Nitrogen 14 mg/dL (8-23); Carbon Dioxide 23 mmol/L (22-29); Chloride 102 mmol/L (98-107); Glomerular Filtration Rate 63.4 mL/min (90-130); Glucose 94 mg/dL (65-115); Osmolality Calculated 288 mOsm/kg (285-295); Potassium 3.8 mmol/L (3.5-5.1); Sodium 139 mmol/L (136-145)
--- NOTE | 2021-10-02 14:32 | ECG_ITS ---
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 Measurements Intervals [place] Rate: 73 P: -85 MD: 129 QRS: 46 QRSD: 98 T: 122 QT: 370 QTc: 410 Interpretive Statements ELECTRONIC VENTRICULAR PACEMAKER -- CONTOUR ANALYSIS BASED ON INTRINSIC RHYTHM NONSPECIFIC ST & T-WAVE ABNORMALITY Compared to ECG 10/02/2021 13:17:36 T-wave abnormality now present Electronically Signed On 10-02-2021 22:31:48 CDT by Pelon Callejas M.D. [id number]
[2021-10-02 16:00] LABS: Free T4 Free Thyroxine 1.14 ng/dL (0.82-1.77); Thyroid Stimulating Hormone 2.86 uIU/mL (0.27-4.20)
[2021-10-02 16:35] LABS: Troponin 5 2HR 8.22 ng/L (0-10)
[2021-10-02 16:52] LABS: Troponin 5 2HR Delta 0.22 ABS# (0-10)
== END 2021-10-02 16:55 | disposition home or self-care (01) ==
PROVIDERS: Emergency Provider Emergency Medicine; PCP Internal Medicine
DX: R42 Dizziness and giddiness (principal); Z79.01 Long term (current) use of anticoagulants; Z79.82 Long term (current) use of aspirin; Z85.51 Personal history of malignant neoplasm of bladder; I11.0 Hypertensive heart disease with heart failure; I50.9 Heart failure, unspecified; Z86.19 Personal history of other infectious and parasitic diseases; I25.2 Old myocardial infarction; E78.5 Hyperlipidemia, unspecified; Z95.0 Presence of cardiac pacemaker; Z87.891 Personal history of nicotine dependence
CPT/HCPCS: 70250; 70450; 71046; 72040; 74019; 80048; 84439; 84443; 84484; 85025; 93005; 96360; 99285; J7030

== ENCOUNTER → 2021-10-24 13:17 | Outpatient (BNVA) | payer MEDICARE, SELFPAY | PROVIDERS: PCP Internal Medicine; Visit Provider Internal Medicine Cardiovascular Disease | DX: Z79.01 Long term (current) use of anticoagulants (principal) ==

== ENCOUNTER → 2021-10-30 10:15 | Outpatient (BNVA) | payer MEDICARE, SELFPAY | PROVIDERS: PCP Internal Medicine; Visit Provider Internal Medicine Cardiovascular Disease | DX: Z79.01 Long term (current) use of anticoagulants (principal); C67.9 Malignant neoplasm of bladder, unspecified | CPT/HCPCS: 52000 ==

== ENCOUNTER 2021-12-05 13:39 | Outpatient (CLI) | payer MEDICARE, SELFPAY ==
--- NOTE | 2021-12-05 | USCV_ITS ---
Maryuri Abernathy Age: 61 Gender: F : 1960 Exam Date: 12/05/2021 14:45 Ordering Phys: Sultana Montelongo MD ([email or web address]) Technologist: Lety Adams [place] [facility] [place]: 3 replaced valves BP: 122 / 80 HR: 80 Rhythm: Sinus Technical Quality: Adequate MEASUREMENTS (Male / Female) Normal Values 2D ECHO LV Diastolic Diameter PLAX 4.2 cm 4.2 - 5.9 / 3.9 - 5.3 cm LV Systolic Diameter PLAX 3.1 cm LV Chamber Size 3.4 cm IVS Diastolic Thickness 1.1 cm 0.6 - 1.0 / 0.6 - 0.9 cm IVS Systolic Thickness 1.5 cm LVPW Diastolic Thickness 1.7 cm 0.6 - 1.0 / 0.6 - 0.9 cm LVPW Systolic Thickness 1.6 cm RV Chamber Size 2.9 cm LVOT Diameter 2.0 cm LV Ejection Fraction 2D Teich 51.1 % LV Ejection Fraction MOD 2C 40.0 % LV Ejection Fraction 2C AL 41.8 % LA Diameter 3.8 cm LA Width 2.6 cm LA Height 3.8 cm RA Width 3.8 cm RA Height 4.1 cm Aorta at Sinotubular Diameter 2.3 cm IVC Diameter 1.9 cm M-MODE Aortic Annulus Diameter 2.8 cm LA Ao Ratio MM 1.3 MV E Point Septal Separation 1.0 cm DOPPLER AV Peak Velocity 313.7 cm/s LVOT Peak Velocity 70.8 cm/s AV Area Cont Eq vti 0.7 cm squared AV Area Cont Eq pk 0.7 cm squared MV Area PHT 5.1 cm squared Mitral E to A Ratio 1.3 MV E' Velocity 65.0 cm/s Mitral E to MV E' Ratio 19.1 Mitral E to LV E' Lateral Ratio 20.1 Mitral E to LV E' Septal Ratio 18.5 TR Peak Velocity 234.1 cm/s TR Peak Gradient 21.9 mmHg TR Mean Velocity 179.2 cm/s TR Mean Gradient 14.1 mmHg TR Velocity Time Integral 60.8 cm TV Peak E Velocity 104.7 cm/s Right Atrial Pressure 8.0 mmHg Pulmonary Artery Systolic Pressu 29.9 mmHg PV Peak Velocity 86.0 cm/s RV Acceleration Time 0.1 s RV Ejection Time 0.3 s RV AcT/ET 0.3 FINDINGS Left Ventricle Diffuse hypokinesia left ventricular ejection fraction of 45%. Normal LV size. Right Ventricle Appears to be of normal size and ejection fraction Right Atrium Mildly dilated Left Atrium Mildly dilated Mitral Valve The mitral valve prosthesis appears to be well-seated with a normal disc motion Aortic Valve The prosthetic valve at the aortic position appears to be well- seated. The peak velocity across the aortic valve was 3.32 m/s. Peak gradient of 44 and a mean gradient of 26 mmHg. Valve area was calculated to be 0.61 cm scar Tricuspid Valve Bioprosthetic valve in the tricuspid position appears to be well-seated with normal leaflet motion . Tricuspid valve Doppler studies need to be repeated. Pulmonic Valve Moderate pulmonary valve regurgitation. Pericardium No pericardial effusion Aorta Normal aortic annulus size. IVC Not identified CONCLUSIONS 1. Severe low gradient aortic valve stenosis with a valve area of 0.7 cm squared. Peak velocity of 3.32 m/s, peak gradient of 44 and a mean gradient of 26 mmHg 2. Normal LV size with diminished ejection fraction of 45%. Mild diffuse hypokinesia left-ventricular. 3. Mild biatrial enlargement. 4. Mitral and tricuspid valve Doppler studies need to be repeated for valve area calculations Dr Sultana Montelongo MD [facility] (Electronically Signed) Final Date: 12 December 2021 18:18 S
== END 2021-12-05 13:40 | disposition home or self-care (01) ==
PROVIDERS: PCP Internal Medicine; Visit Provider Internal Medicine Cardiovascular Disease
DX: Z95.2 Presence of prosthetic heart valve; I35.0 Nonrheumatic aortic (valve) stenosis; I07.1 Rheumatic tricuspid insufficiency
CPT/HCPCS: 93306

== ENCOUNTER → 2021-12-31 11:40 | Outpatient (BNVA) | payer MEDICARE, SELFPAY | PROVIDERS: PCP Internal Medicine; Visit Provider Internal Medicine Cardiovascular Disease | DX: R06.02 Shortness of breath (principal); I42.8 Other cardiomyopathies; Z45.010 Encounter for checking and testing of cardiac pacemaker pulse generator [battery]; T82.857A Stenosis of other cardiac prosthetic devices, implants and grafts, initial encounter; Z95.2 Presence of prosthetic heart valve; I48.21 Permanent atrial fibrillation; I10 Essential (primary) hypertension; E78.2 Mixed hyperlipidemia | CPT/HCPCS: 80048; 83880; 85025; 85610; 86850; 86900; 99214 ==

== ENCOUNTER 2022-01-06 08:06 | Emergency (ER) | payer MEDICARE, SELFPAY ==
[2022-01-06] VITALS (10 sets, daily range): BP systolic 136–167; BP diastolic 72–106; PULSE 83–85; RESP 15–32; TEMP 36.1; O2SAT 97; BMI 31.1
--- NOTE | 2022-01-06 08:19 | PC.NURSE ---
pt on the phone with dr. schneider and does not end call when attempting to obtain ekg.
--- NOTE | 2022-01-06 08:23 | ECG_ITS ---
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 Measurements Intervals [place] Rate: 83 P: -83 HI: 140 QRS: 41 QRSD: 106 T: 75 QT: 373 QTc: 441 Interpretive Statements Ectopic atrial rhythm ST DEVIATION AND MODERATE T-WAVE ABNORMALITY, CONSIDER ANTERIOR ISCHEMIA Compared to ECG 10/02/2021 15:32:31 Possible ischemia now present Ventricular-paced complex(es) or rhythm no longer present T-wave abnormality still present Electronically Signed On 01-06-2022 12:18:58 CDT by Suzette Li M.D. [id number] [email or web address]
--- NOTE | 2022-01-06 08:28 | XR_ITS ---
WS: [id number] Exam: XR chest 1V portable [id number] Date/Time of Exam: 01/06/2022 8:35 AM Reason For Exam: dyspnea/cough Comparison 11/01/2020. The lungs are clear and hyperinflated. The heart is enlarged but unchanged in size. Signs of previous cardiac valve replacement. A cardiac pacer is seen over the left chest. The pacer lead has fractured in the region of the left shoulder. A right-sided CSF shunt catheter is noted. Bony structures are i ntact. The mediastinum is normal in contour. XR/XR chest 1V portable [id number] IMPRESSION: 1. Pulmonary hyperinflation but no acute process identified. 2. Cardiac enlargement unchanged. 3. Left-sided cardiac pacer with fractured lead. This has been reported previou alexia.
--- NOTE | 2022-01-06 08:43 | W.ED.GENADLT ---
HPI - General Adult General: Chief complaint: General Medical Stated complaint: Heart issues this morning, spiting up blood Time Seen by Provider: 01/06/22 08:09 Source: patient Mode of arrival: ambulatory History of Present Illness: 61-year-old female presents emergency room generally states she is not feeling well nauseous. Last several weeks she has been fatigued and not feeling well she will wake up at night with sweats at times her blood pressures been elevated she has seen Dr. Montelongo last week they adjusted her medication increase her lisinopril last night she woke up with a similar episode and had a little bit of blood in her mouth spit up is moderate amount of blood has not had any recurrence since then. She has a prosthetic mitral valve as well as aortic and tricuspid, and is on Coumadin. Onset (ago): week(s) Relieving factors: none Exacerbating factors: none Associated symptoms: Reports dyspnea, malaise, nausea, short of breath and weakness; Deny chest pain, confusion, cough, diaphoresis, decreased appetite, fevers/chills, headache(s), rash, palpitations, seizures, syncope or vomiting Treatments prior to arrival: none Review of Systems Const: Reports: malaise; Denies: fever(s), chills, fatigue or diaphoresis ENMT: Denies: throat pain, ear or mastoid pain, nasal discharge or nasal congestion Card: Denies: chest pain, palpitations or syncope Resp: Reports: dyspnea GI: Reports: nausea; Denies: abdominal pain or vomiting : Denies: flank pain, difficulty voiding, dysuria, urinary frequency or urinary urgency Skin/Breast: Denies: rash Neuro: Denies: headache(s) or confusion PFS ED PFSH: Medical History Afib Bladder cancer Cancer of cervix Cardiomyopathy Cervical myopathy CHF (congestive heart failure) Chronic fatigue Degenerative cervical spinal stenosis Essential (primary) hypertension Hepatitis C Hx of fracture of lower leg Hx of intestinal obstruction Hx of myocardial infarction Hyperlipemia Hypothyroidism Long-term (current) use of anticoagulants, INR goal 2.5-3.5 NSTEMI (non-ST elevated myocardial infarction) Pacemaker Partial tear of rotator cuff Prosthetic aortic valve stenosis Unspecified macular degeneration Valvular heart disease Surgical History Aortic valve prosthesis present History of prosthetic tricuspid valve replacement History of surgery on wrist Hx of hernia repair Hx of hysterectomy Hx of knee surgery Mitral valve replaced S/P cholecystectomy S/P TVR (tricuspid valve repair) 2004 [employer] (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) shunt status Family History Father CAD (coronary artery disease) Other Family history unknown Hypertension Denies family history of Clotting disorder Anesthesia complication Bleeding disorder Social History Smoking and tobacco status: never smoked Alcohol intake: current Alcohol intake frequency: holidays/special occasions only Marital status: Single Current occupational status: disabled History of recent travel: No Physical Exam Const: GENERAL APPEARANCE: cooperative and comfortable ORIENTATION/CONSCIOUSNESS: Yes awake, Yes oriented to person, Yes oriented to place and Yes oriented to time HENMT: COMMON NORMALS: normocephalic, atraumatic and hearing grossly normal bilaterally HEAD & SCALP: normocephalic and atraumatic Resp: COMMON NORMALS: normal respiratory effort, No retractions, No use of accessory muscles and clear to auscultation bilaterally AUSCULTATION: clear to auscultation bilaterally Cardio: COMMON NORMALS: regular rate, regular rhythm and No murmurs present (Cardio) RATE: regular rate RHYTHM: regular rhythm GI: COMMON NORMALS: Soft to palpation and No hepatosplenomegaly present AUSCULTATION: Yes normoactive bowel sounds PALPATION: Yes Soft to palpation, No Tenderness to palpation present (GI), No Guarding due to palpation present (GI) and Yes No hepatosplenomegaly present Extremity: COMMON NORMALS: normal to inspection, capillary refill normal, no clubbing, cyanosis or edema, no calf tenderness and no pedal edema Neuro: SENSORIUM/ORIENTATION: Yes oriented to person, Yes oriented to place and Yes oriented to time Skin: COMMON NORMALS: no rashes or lesions noted GENERAL SKIN EXAM: no rashes or lesions noted Course Vital Signs: Vital signs: Vital Signs Temperature 97.0 F L 01/06/22 08:28 Pulse Rate 83 01/06/22 10:30 Respiratory Rate 28 H 01/06/22 10:30 Blood Pressure 136/72 01/06/22 10:30 Pulse Oximetry 97 01/06/22 08:45 MDM - General Adult Medical Decision Making Patient may be having intermittent episodes of poorly controlled rate. 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 Medical Records I reviewed the patient's medical records. Lab Data I reviewed the patient's lab results. : 01/06/22 08:40 01/06/22 08:40 Radiology Impressions Chest X-Ray 01/06/22 08:28 IMPRESSION: 1. Pulmonary hyperinflation but no acute process identified. 2. Cardiac enlargement unchanged. 3. Left-sided cardiac pacer with fractured lead. This has been reported previously. Laboratory Results WBC 9.8 10^3/uL (4.0-10.0) 01/06/22 08:40 RBC 4.58 10^6/uL (4.1-5.3) 01/06/22 08:40 Hgb 13.9 g/dL (11.5-15.3) 01/06/22 08:40 Hct 41.9 % (37.0-47.0) 01/06/22 08:40 MCV 91.5 fl (81-99) 01/06/22 08:40 MCH 30.3 pg (28.0-34.0) 01/06/22 08:40 MCHC 33.2 g/dL (30.0-36.0) 01/06/22 08:40 RDW 13.3 % (12.1-15.1) 01/06/22 08:40 Plt Count 318 10^3/cmm (130-400) 01/06/22 08:40 MPV 10.1 fL (7.4-10.4) 01/06/22 08:40 Neut % (Auto) 77.8 % 01/06/22 08:40 Lymph % (Auto) 14.3 % 01/06/22 08:40 [place] % (Auto) 5.8 % 01/06/22 08:40 Eos % (Auto) 0.8 % 01/06/22 08:40 Baso % (Auto) 0.8 % 01/06/22 08:40 Neut # (Auto) 7.59 10^3/uL (1.8-7.7) 01/06/22 08:40 Lymph # (Auto) 1.4 10^3/uL (0.8-4.8) 01/06/22 08:40 [place] # (Auto) 0.6 10^3/uL (0.2-0.9) 01/06/22 08:40 Eos # (Auto) 0.1 10^3/uL (0.0-0.8) 01/06/22 08:40 Baso # (Auto) 0.1 10^3/uL (0.0-0.1) 01/06/22 08:40 Nucleated RBC % (auto) 0 % 01/06/22 08:40 Nucleated RBCs # 0.0 /100WBC 01/06/22 08:40 Sodium 138 mmol/L (136-145) 01/06/22 08:40 Potassium 4.2 mmol/L (3.5-5.1) 01/06/22 08:40 Chloride 104 mmol/L (98-107) 01/06/22 08:40 Carbon Dioxide 23 mmol/L (22-29) 01/06/22 08:40 Anion Gap 15.2 (5-19) 01/06/22 08:40 BUN 12 mg/dL (8-23) 01/06/22 08:40 Creatinine 0.9 mg/dL (0.5-0.9) 01/06/22 08:40 GFR Calculation 63.2 mL/min (90-130) L 01/06/22 08:40 Glucose 138 mg/dL (65-115) H 01/06/22 08:40 Calculated Osmolality 288 mOsm/kg (285-295) 01/06/22 08:40 Calcium 9.7 mg/dL (8.5-10.5) 01/06/22 08:40 Total Bilirubin 1.1 mg/dL (0.15-1.2) 01/06/22 08:40 AST 27 U/L (0-32) 01/06/22 08:40 ALT 16 U/L (0-33) 01/06/22 08:40 Alkaline Phosphatase 105 U/L (35-105) 01/06/22 08:40 Total Protein 7.6 g/dL (6.6-8.7) 01/06/22 08:40 Albumin 4.2 g/dL (3.5-5.2) 01/06/22 08:40 Globulin 3.4 g/dL (1.3-4.6) 01/06/22 08:40 Urine Color Yellow (Yellow) 01/06/22 09:23 Urine Appearance Clear (CLEAR) 01/06/22 09:23 Urine pH 5 (5-7) 01/06/22 09:23 Ur Specific [place] 1.025 (1.005-1.030) 01/06/22 09:23 Urine Protein Neg (Negative) 01/06/22 09:23 Urine Glucose (UA) Norm (Normal) 01/06/22 09:23 Urine Ketones Negative (Negative) 01/06/22 09:23 Urine Blood 2+ (Negative) H 01/06/22 09:23 Urine Nitrate Negative (Negative) 01/06/22 09:23 Urine Bilirubin Neg (Negative) 01/06/22 09:23 Urine Urobilinogen Norm mg/dL (Negative) 01/06/22 09:23 Ur Leukocyte Esterase Negative (Negative) 01/06/22 09:23 Urine RBC Rare /hpf (0-2) 01/06/22 09:23 Urine WBC 0-4 /hpf (0-5) H 01/06/22 09:23 Ur Squamous Epith Cells 15-25 /hpf (0-5) H 01/06/22 09:23 Amorphous Sediment Not Reportable 01/06/22 09:23 Urine Bacteria 1+ /hpf (NONE) H 01/06/22 09:23 Discharge Plan Discharge Patient Disposition: Home Clinical Impression: Afib, Mitral valve replaced, Essential (primary) hypertension Condition: Stable Prescriptions: New amlodipine 2.5 mg tablet 2.5 mg PO DAILY Qty: 30 0RF No Action warfarin 1 mg tablet 1 mg PO DIRECTED Qty: 90 1RF Hold Instructions: Resume on 12/09/20. Protocol: Dose Management Condition: Wednesday Dose/Route: 4 mg Instruction: 2 x 2 mg tablets Condition: Wednesday Dose/Route: 3 mg Instruction: 1 x 3 mg tablet Condition: Wednesday Dose/Route: 3.5 mg Instruction: 3.5 x 1 mg tablets Condition: Wednesday Dose/Route: 3 mg Instruction: 1 x 3 mg tablet Condition: Dose/Route: 3.5 mg Instruction: 3.5 x 1 mg tablets Condition: Wednesday Dose/Route: 3 mg Instruction: 1 x 3 mg tablet Condition: Wednesday Dose/Route: 3.5 mg Instruction: 3.5 x 1 mg tablets Protocol Text: Adjustment Start Date: Wednesday01/07/22 INR Value: 2.5 INR Date: 01/05/22 warfarin 3 mg tablet 3 mg PO DAILY Qty: 90 3RF Hold Instructions: Resume on 12/09/20. Protocol: Dose Management Condition: Wednesday Dose/Route: 4 mg Instruction: 2 x 2 mg tablets Condition: Wednesday Dose/Route: 3 mg Instruction: 1 x 3 mg tablet Condition: Wednesday Dose/Route: 3.5 mg Instruction: 3.5 x 1 mg tablets Condition: Wednesday Dose/Route: 3 mg Instruction: 1 x 3 mg tablet Condition: Dose/Route: 3.5 mg Instruction: 3.5 x 1 mg tablets Condition: Wednesday Dose/Route: 3 mg Instruction: 1 x 3 mg tablet Condition: Wednesday Dose/Route: 3.5 mg Instruction: 3.5 x 1 mg tablets Protocol Text: Adjustment Start Date: Wednesday01/07/22 INR Value: 2.5 INR Date: 01/05/22 Rx Instructions: see protocol warfarin 2 mg tablet See Rx Instructions .ROUTE .COMPLEX Qty: 90 3RF Hold Instructions: Resume on 12/09/20. Protocol: Dose Management Condition: Wednesday Dose/Route: 4 mg Instruction: 2 x 2 mg tablets Condition: Wednesday Dose/Route: 3 mg Instruction: 1 x 3 mg tablet Condition: Wednesday Dose/Route: 3.5 mg Instruction: 3.5 x 1 mg tablets Condition: Wednesday Dose/Route: 3 mg Instruction: 1 x 3 mg tablet Condition: Dose/Route: 3.5 mg Instruction: 3.5 x 1 mg tablets Condition: Wednesday Dose/Route: 3 mg Instruction: 1 x 3 mg tablet Condition: Wednesday Dose/Route: 3.5 mg Instruction: 3.5 x 1 mg tablets Protocol Text: Adjustment Start Date: Wednesday01/07/22 INR Value: 2.5 INR Date: 01/05/22 Dose Instruction: TAKE 1 TABLET BY MOUTH DIRECTED PER INR Rx Instructions: TAKE 1 TABLET BY MOUTH DIRECTED PER INR metoprolol tartrate 100 mg tablet 100 mg PO BID Qty: 180 3RF Rx Instructions: Do not discontinue unless approved per Dr Montelongo. diltiazem HCl 360 mg capsule,extended release 24hr 360 mg PO DAILY Qty: 90 3RF lisinopril 40 mg tablet 40 mg PO DAILY Qty: 90 3RF Aspir-81 81 mg Tablet,Delayed Release (Dr/Ec) 81 mg PO DAILY Discharge Orders: Discharge ED (Routine); Ordered 01/06/22 Ordered By: Serafin Brennan Referrals: Dominick Abernathy MD [Primary Care Provider] - Discharge Diet: Usual diet Discharge Activity: Resume usual activity Patient Instructions: Opioid Safety, Pain Management Activity Restrictions/Additional Instructions: Case management will set up a 48-hour Holter monitor. Follow-up with Dr. Montelongo's office for recheck on blood pressure and review of Holter monitor results. No change in your other medicines at this time. Coding Level of Care Code ED Profile Grinder for [facility] Fwd Exam Detailed
[2022-01-06 08:58] LABS: Basophils # 0.1 10^3/uL (0.0-0.1); Basophils % 0.8 %; Eosinophils # 0.1 10^3/uL (0.0-0.8); Eosinophils % 0.8 %; Hematocrit 41.9 % (37.0-47.0); Hemoglobin 13.9 g/dL (11.5-15.3); Lymphocytes # 1.4 10^3/uL (0.8-4.8); Lymphocytes % 14.3 %; Mean Corpuscular HGB Conc 33.2 g/dL (30.0-36.0); Mean Corpuscular Hemoglobin 30.3 pg (28.0-34.0); Mean Corpuscular Volume 91.5 fl (81-99); Mean Platelet Volume 10.1 fL (7.4-10.4); Monocytes # 0.6 10^3/uL (0.2-0.9); Monocytes % 5.8 %; Neutrophils # 7.59 10^3/uL (1.8-7.7); Neutrophils % 77.8 %; Nucleated Red Blood Cells % 0 %; Platelet Count 318 10^3/cmm (130-400); Red Blood Count 4.58 10^6/uL (4.1-5.3); Red Cell Distribution Width 13.3 % (12.1-15.1); White Blood Count 9.8 10^3/uL (4.0-10.0)
[2022-01-06 09:07] LABS: Alanine Aminotransferase 16 U/L (0-33); Albumin Level 4.2 g/dL (3.5-5.2); Alkaline Phosphatase 105 U/L (35-105); Anion Gap 15.2 (5-19); Aspartate Amino Transferase 27 U/L (0-32); Blood Urea Nitrogen 12 mg/dL (8-23); Calcium 9.7 mg/dL (8.5-10.5); Carbon Dioxide 23 mmol/L (22-29); Chloride 104 mmol/L (98-107); Globulin 3.4 g/dL (1.3-4.6); Glomerular Filtration Rate 63.2 mL/min (90-130); Glucose 138 mg/dL (65-115); Osmolality Calculated 288 mOsm/kg (285-295); Potassium 4.2 mmol/L (3.5-5.1); Sodium 138 mmol/L (136-145); Total Bilirubin 1.1 mg/dL (0.15-1.2); Total Protein 7.6 g/dL (6.6-8.7)
--- NOTE | 2022-01-06 09:20 | PC.PHAR ---
PT HAS WARFARIN 1MG, 2MG AND 3MG - CURRENTLY TAKING 3MG DAILY HOWEVER PT STATES SHE TOOK 4MG YESTERDAY DUE TO HER DIET CHOICES
[2022-01-06 09:53] LABS: Add Urine Microscopic? YES; Bilirubin Urine Neg (Negative); Blood Urine 2+ (Negative); Glucose Urine UA Norm (Normal); Ketones Urine Negative (Negative); Leukocyte Esterase Urine Negative (Negative); Nitrate Urine Negative (Negative); Protein Urine Neg (Negative); Specific Gravity, Urine 1.025 (1.005-1.030); Urine Appearance Clear (CLEAR); Urine Color Yellow (Yellow); Urobilinogen Urine Norm (Negative); pH Urine 5 (5-7)
[2022-01-06 09:57] LABS: Add Urine Culture? No; Bacteria Urine 1+ /hpf; RBC Urine RARE /hpf (0-2); Squamous Epithelial Cell Urine 15-25 /hpf (0-5); WBC Urine 0-4 /hpf (0-5)
--- NOTE | 2022-01-13 06:44 | DCPLANNER ---
Addendum entered by Margaux Barragan 01/30/22 14:15: Patient returned call after receiving a no show letter via mail for another matter and I asked patient multiple times if she would like to be scheduled for the monitor and she would not give me a direct answer On 01/16/22 @ 09:02 Neda Cabrales Wrote To [facility] Ndea Cabrales completed item. On 01/14/22 @ 08:36 Loren Auguste Wrote To [facility] Attempted to call pt. no answer left vm to call back. On 01/13/22 @ 08:55 Neda Cabrales Wrote To [facility] Attempted to contact patient - left a voicemail to call back Addendum entered by Margaux Barragan 01/14/22 15:42: logistics program manager had the following message from the heart care clinic regarding follow up appointment: Attempted to call pt. no answer left vm to call back. On Wed 8:55a Jan 13, 2022 Neda Cabrales (Covering For: [facility]) Wrote To: [facility] Attempted to contact patient - left a voicemail to call back Original Note: logistics program manager had message to schedule an outpatient 48 hour halter monitor for patient. logistics program manager faxed signed order to heart care, who will call patient with appointment information.
== END 2022-01-06 10:42 | disposition home or self-care (01) ==
PROVIDERS: Emergency Provider Family Medicine; PCP Internal Medicine
DX: I48.91 Unspecified atrial fibrillation (principal); I10 Essential (primary) hypertension; Z95.2 Presence of prosthetic heart valve; Z79.01 Long term (current) use of anticoagulants; Z79.82 Long term (current) use of aspirin; I11.0 Hypertensive heart disease with heart failure; I50.9 Heart failure, unspecified; Z85.51 Personal history of malignant neoplasm of bladder; Z85.41 Personal history of malignant neoplasm of cervix uteri; Z86.19 Personal history of other infectious and parasitic diseases; I25.2 Old myocardial infarction; E78.5 Hyperlipidemia, unspecified
CPT/HCPCS: 36415; 71045; 80053; 81001; 85025; 87040; 93005; 99285

== ENCOUNTER 2022-02-06 06:02 | Outpatient (CLI) | payer MEDICARE, SELFPAY ==
[2022-02-03 10:01] LABS: Basophils # 0.1 10^3/uL (0.0-0.1); Basophils % 0.9 %; Eosinophils # 0.3 10^3/uL (0.0-0.8); Eosinophils % 3.7 %; Hematocrit 41.1 % (37.0-47.0); Hemoglobin 13.8 g/dL (11.5-15.3); Lymphocytes # 1.4 10^3/uL (0.8-4.8); Lymphocytes % 17.7 %; Mean Corpuscular HGB Conc 33.6 g/dL (30.0-36.0); Mean Corpuscular Hemoglobin 30.9 pg (28.0-34.0); Mean Corpuscular Volume 92.2 fl (81-99); Mean Platelet Volume 9.7 fL (7.4-10.4); Monocytes # 0.6 10^3/uL (0.2-0.9); Monocytes % 7.8 %; Neutrophils # 5.56 10^3/uL (1.8-7.7); Neutrophils % 69.3 %; Nucleated Red Blood Cells % 0 %; Platelet Count 317 10^3/cmm (130-400); Red Blood Count 4.46 10^6/uL (4.1-5.3); Red Cell Distribution Width 13.2 % (12.1-15.1)
[2022-02-03 10:13] LABS: INR 1.76 (0.83-1.21); Prothrombin Time (Patient) 20.8 Seconds (12.0-15.1)
[2022-02-03 10:27] LABS: Anion Gap 14.9 (5-19); Blood Urea Nitrogen 18 mg/dL (8-23); Calcium 9.6 mg/dL (8.5-10.5); Carbon Dioxide 25 mmol/L (22-29); Chloride 104 mmol/L (98-107); Glucose 105 mg/dL (65-115); Osmolality Calculated 290 mOsm/kg (285-295); Potassium 4.9 mmol/L (3.5-5.1); Sodium 139 mmol/L (136-145)
[2022-02-06] VITALS (64 sets, daily range): BP systolic 86–132; BP diastolic 52–88; PULSE 60–79; RESP 13–24; TEMP 36.6–37.2; O2SAT 92–99; BMI 30.6
--- NOTE | 2022-02-06 07:15 | P.HP_ITS ---
Providers/Chief Complaint Admitting Physician: VIKY Montelongo MD Primary Care Provider: Dominick Abernathy MD Chief Complaint: Permanent pacemaker, KEEGAN History of Present Illness Maryuri Abernathy is a 61 year old female with a history of multivalvular heart disease, chronic intermittent A. fib, cardiomyopathy, hyperlipidemia, essential benign hypertension, hypothyroidism, congestive heart failure, is found to have KEEGAN for the pacemaker. For further management of her condition, she requires a pacemaker revision. The patient recently finished 10 days of antibiotic treatment for tooth infection. She been having some soreness in her throat in the oil pumper for the last few days. She attributes this to the allergy that he has. Her temperature this morning is 98.8. She denies any chest pain or unusual shortness of breath. Has not had any fever at home. No nausea or vomiting. No other specific complaints. She had aortic, mitral and tricuspid valve replacements in the past. Review of Systems Narrative: CONSTITUTIONAL: No fever or chills. EYES: No blurring of vision or other visual disturbances lately. ENT: No hoarseness of voice, auditory disturbances. Soreness in the throat in the oil pumper hours as mentioned above. At the time of my examination, she has no sore throat. Status posttreatment with antibiotics for tooth infection. CARDIOVASCULAR: As mentioned above. RESPIRATORY: No significant cough. GASTROINTESTINAL: No hematemesis or melena. GENITOURINARY: No dysuria or hematuria. INTEGUMENTARY: No skin rashes or history of skin cancer. NEURO: No transient ischemic attacks or amaurosis. PSYCHIATRIC: No history of psychosis or major depression. HEMATOLOGIC: No bleeding disorders or significant anemia. ENDOCRINE: No history of polyuria or polydipsia. MUSCULOSKELETAL: No recent joint pain or swelling. ALLERGY/IMMUNOLOGY: As mentioned above. Medications/Allergies Home Medications Medication Instructions Recorded Confirmed Last Taken Type warfarin 3 mg tablet 3 mg PO DAILY #90 tabs 01/16/21 02/05/22 02/02/22 20:00 Rx warfarin 2 mg tablet See Rx Instructions .Route 07/22/21 02/05/22 02/02/22 06:00 Rx .COMPLEX #90 tabs metoprolol tartrate 100 mg tablet 100 mg PO BID #180 tabs 08/15/21 02/05/22 02/06/22 05:00 Rx diltiazem HCl 360 mg 360 mg PO DAILY #90 caps 01/01/22 02/05/22 02/06/22 05:00 Rx capsule,extended release 24 hr lisinopril 40 mg tablet 40 mg PO DAILY #90 tabs 01/05/22 02/05/22 02/06/22 05:00 Rx aspirin 81 mg tablet,delayed 81 mg PO DAILY 01/06/22 02/05/22 02/05/22 06:00 History release warfarin 1 mg tablet 1 mg PO DIRECTED #90 tabs 01/23/22 02/05/22 02/02/22 06:00 Rx amlodipine 2.5 mg tablet 2.5 mg PO DAILY #90 tabs 02/03/22 02/05/22 02/06/22 05:00 Rx enoxaparin 80 mg/0.8 mL 80 mg (0.8 mL) SUBCUT DAILY #3.2 mL 02/03/22 02/05/22 02/05/22 06:00 Rx subcutaneous syringe (Lovenox) Allergies Allergy/AdvReac Type Severity Reaction Status Date / Time Penicillins Allergy Unknown Unknown Verified 02/05/22 08:15 codeine Allergy ADR-Nausea Verified 02/05/22 08:15 influenza virus vaccine ts Allergy arm Verified 02/05/22 08:15 [id number] (36 mos,up) swelling- [From Fluarix] dvt levofloxacin [From Levaquin] Allergy Unknown Verified 02/05/22 08:15 tetracycline Allergy ALGY-Anaphy Verified 02/05/22 08:15 laxis PFSH Acute PFSH: Medical History Afib Bladder cancer Cancer of cervix Cardiomyopathy Cervical myopathy CHF (congestive heart failure) Chronic fatigue Degenerative cervical spinal stenosis Essential (primary) hypertension Hepatitis C Hx of fracture of lower leg Hx of intestinal obstruction Hx of myocardial infarction Hyperlipemia Hypothyroidism Long-term (current) use of anticoagulants, INR goal 2.5-3.5 NSTEMI (non-ST elevated myocardial infarction) Pacemaker Partial tear of rotator cuff Prosthetic aortic valve stenosis Unspecified macular degeneration Valvular heart disease Surgical History Aortic valve prosthesis present History of prosthetic tricuspid valve replacement History of surgery on wrist Hx of hernia repair Hx of hysterectomy Hx of knee surgery Mitral valve replaced S/P cholecystectomy S/P TVR (tricuspid valve repair) 2004 [employer] (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) shunt status Family History Father CAD (coronary artery disease) Other Family history unknown Hypertension Denies family history of Clotting disorder Anesthesia complication Bleeding disorder Social History Smoking and tobacco status: never smoked Alcohol intake: current Alcohol intake frequency: holidays/special occasions only Marital status: Single Current occupational status: disabled History of recent travel: No Vitals/I&O/Wt Last Vital Signs Temp 99.0 F 02/06/22 06:15 Pulse 71 02/06/22 06:15 Resp 18 02/06/22 06:15 BP 132/80 02/06/22 06:15 Pulse Ox 97 02/06/22 06:15 O2 Del Method 02/06/22 06:15 Weight last 48 hrs Weight 162 lb Physical Exam Narrative: GENERAL: The patient is alert and oriented times three. Not in any acute distress. HEENT: No significant pallor, icterus or lymphadenopathy.Oral cavity: There are no mucous membrane lesions. NECK: Trachea appears to be central. No masses noted. No JVD or thyromegaly appreciated. RESPIRATORY: Chest is symmetrical. No intercostals muscle retraction or any accessory muscle activation. There is no chest wall tenderness. Breath sounds are heard bilaterally. No rales or rhonchi heard. No evidence of any consolidation. BREASTS: Deferred. HEART: T the first heart sound is variable. Second heart sound is normal. No S3. Systolic murmur grade 3 or 6 in the left sternal border. No diastolic murmurs. ABDOMEN: No vessel pulsations or distention. No tenderness. No organomegaly appreciated. Bowel sounds are normally heard. : Deferred. RECTAL: Deferred. LYMPHATIC: No lymphadenopathy noted in the neck. EXTREMITIES: No edema or cyanosis. No clubbing. MUSCULOSKELETAL: No acute joint deformities or swelling SKIN: There are no significant rashes or ecchymosis NEUROPSYCHIATRIC: The patient is alert and oriented x3. Appears to be in a good mood. No tremors or rigidity noted. Data : 02/03/22 09:50 02/03/22 09:50 A&P Assessment and plan (1) Pacemaker at end of battery life: For further management of the patient's condition, she requires a pacemaker revision. This was discussed with the patient in detail. I may go ahead and do a repeat CBC. If there is no signs of infection, we may go ahead with the procedure. The risk of bleeding, hematoma, vascular injury, infection, renal failure and other concomitant complications were explained in detail. The jorden ent [] understood this well and consented to proceed. (2) History of mitral valve prosthesis: The valve function appears to be appropriate based on the most recent echocardiogram. (3) Prosthetic aortic valve stenosis: Patient was found to have severe low gradient aortic valve stenosis with a peak velocity of 3.32 m/s, peak gradient of 44 and a mean gradient of 26 mmHg. The valve area was calculated to be 0.7 cm?. Patient clinically seems to be doing okay. She has decided not to undergo any intervention at this point. (4) History of prosthetic tricuspid valve replacement: Tricuspid valve function appears to be appropriate. (5) Afib: Patient has chronic intermittent atrial fibrillation (6) Cardiomyopathy: The left-ventricular ejection fraction was around 45% by echocardiogram. Qualifiers: Cardiomyopathy type: other Qualified Code(s): I42.8 - Other cardiomyopathies (7) Essential (primary) hypertension: The blood pressure has been fairly under control lately. Plan The repeated CBC this morning showed a hemoglobin of 12.5 with a hematocrit of 37.1. Her white cell count was 8.1 thousand. Her temperature is 98.8. At this point, since she seems to be doing okay, I may go ahead with the pacemaker revision. Attestations Medical Necessity Statement*: Patient will be kept overnight for antibiotics. Will be discharged tomorrow. Coding Level of Care Code Acute Medical Screener for [facility] Fwd History Expanded Problem Focused Exam Expanded Problem Focused Diagnoses Pacemaker at end of battery life Z45.010 History of mitral valve prosthesis Z95.2 Prosthetic aortic valve stenosis T82.857A History of prosthetic tricuspid valve replacement Z95.2 Afib I48.91 Cardiomyopathy I42.8 Cardiomyopathy type: other Essential (primary) hypertension I10
[2022-02-06 07:19] LABS: Basophils # 0.1 10^3/uL (0.0-0.1); Basophils % 0.7 %; Eosinophils # 0.2 10^3/uL (0.0-0.8); Eosinophils % 2.5 %; Hematocrit 37.1 % (37.0-47.0); Hemoglobin 12.5 g/dL (11.5-15.3); Lymphocytes # 1.3 10^3/uL (0.8-4.8); Mean Corpuscular HGB Conc 33.7 g/dL (30.0-36.0); Mean Corpuscular Hemoglobin 31.2 pg (28.0-34.0); Mean Corpuscular Volume 92.5 fl (81-99); Mean Platelet Volume 9.8 fL (7.4-10.4); Monocytes # 0.6 10^3/uL (0.2-0.9); Monocytes % 6.8 %; Neutrophils # 5.96 10^3/uL (1.8-7.7); Neutrophils % 73.3 %; Nucleated Red Blood Cells % 0 %; Platelet Count 275 10^3/cmm (130-400); Red Blood Count 4.01 10^6/uL (4.1-5.3); Red Cell Distribution Width 13.1 % (12.1-15.1); White Blood Count 8.1 10^3/uL (4.0-10.0)
--- NOTE | 2022-02-06 07:30 | W.PM.OPSUD ---
Surgery/Procedure H&P Update DATE OF PROCEDURE: February 06, 2022 DATE H&P PERFORMED: 02/06/22 H&P UPDATE INFORMATION: I have reviewed H&P completed within last 30 days, I have examined patient prior to procedure and No changes to prior documentation PREOP DIAGNOSIS: Pacemaker KEEGAN PRIMARY INDICATION FOR PROCEDURE: Patient has a dual-chamber pacemaker. She has chronic intermittent atrial fibrillation. Pacemaker was found to be in KEEGAN on 12/19/2021. PLANNED PROCEDURE: Operation Date: 02/06/22 07:00 Proposed Procedures p Pacemaker Generator Change 54202,Z45.010 will need lovenox bridging(Not Applicable) - Sultana Montelongo MD PATIENT REASSESSED PRIOR TO SEDATION, WITH NO CHANGE NOTED: Yes PHYSICAL EXAM: alert, oriented x 3, clear to auscultation bilaterally and regular rate & rhythm (Irregularly irregular rhythm) AIRWAY EVAL/ANESTHESIA PLAN: normal airway, see other exam findings, ASA III, Monitored Anesthesia, Local Anesthesia, Risks, benefits & alternatives of sedation and/or procedure discussed and Patient agrees to continue as planned
--- NOTE | 2022-02-06 08:51 | PM.OP ---
Operative Report Date of procedure: February 06, 2022 Pre-op diagnosis: Preop Diagnosis Pacemaker KEEGAN Procedure: PROCEDURE: PACEMAKER REVISION PREOPERATIVE DIAGNOSIS: Pacemaker elective replacement indication. POSTOPERATIVE DIAGNOSIS: Pacemaker elective replacement indication. ESTIMATED BLOOD LOSS: None COMPLICATIONS: None. BRIEF HISTORY: The patient is 61-year-old white female who had a permanent pacemaker implantation for symptomatic bradycardia. The patient was found to have elective replacement indication, during routine office followup evaluation. For further management of patient's condition for the symptomatic bradycardia, the patient required a pacemaker revision. Patient required a dual-chamber pacemaker for symptom relief and the need for AV synchrony The procedure was explained to the patient in detail with the risks and benefits. The risks of bleeding, hematoma, vascular injury, infection and other concomitant complications were explained in detail, which the patient understood well and consented to proceed. PROCEDURES PERFORMED: 1. Explantation of the old pacemaker generator. 2. Implantation of the new generator. The patient brought to the Cardiac Interior Design Faculty Member. The left side of the neck and the subclavian area were cleaned and draped in a sterile fashion. 1% Xylocaine was used for local anesthetic agent. A 2 inch long incision was made just below the previous pacemaker scar. By sharp and blunt dissection, the pacemaker pocket was accessed. The old generator was delivered from the pocket. The generator was detached from the lead. The new Medtronic generator was attached to the lead. The pacemaker pocket was copiously irrigated with vancomycin solution. Complete hemostasis was achieved. The lead was positioned behind the generator and the generator was attached to the pectoralis fascia by suturing with 0 Surgilon. Sponge counts were confirmed. The pacemaker pocket was closed in layers. Skin was approximated using 4-0 Vicryl. EXPLANTED DEVICE: Pacemaker Generator: Brand: Aisha PERSON Model number: [id number] Serial number: [id number]. Date of implant: 05/04/2012 IMPLANTED DEVICES: Ventricular Lead: Date of implantation: 05/04/2012 Model number: [id number] Serial number: [id number] Make: [employer]. Atrial lead Date of implantation: 05/04/2012 Model number: [id number] Serial number: [id number] Make: Medtronic. Implanted Generator: Date of implantation : 02/06/2022 Brand: Lyla Villafuerte Model number: [id number] Serial number: [id number] Make: Medtronic Stimulation Threshold: The ventricular sensing was 11.0 millivolts. Ventricular lead impedance was 399 ohms and the pacing threshold was 1.0 volts at 0.4 milliseconds. The atrial sensing was noted obtained because the patient was in atrial fibrillation . Atrial lead impedance was 1026 ohms The pacemaker was set for VVIR mode with an upper rate of 150 and a lower rate of 60. A pressure dressing was applied over the pacemaker site. The patient was transferred back to medical floor in stable condition. Sponge counts were correct.
[2022-02-06] MEDS: dextrose 5%-sod chloride 0.45% 1,000 ML 75 ML IV (09:56)
[2022-02-06] MEDS: clindamycin 900 MG/50 ML PREMIX 100 MG IV ×2 (09:56→17:32)
[2022-02-06] MEDS: aspirin 81 mg EC Tablet PO (14:36)
[2022-02-06] MEDS: ondansetron 2 mg/ML SDV 2 mL 4 MG IVP ×2 (14:36→17:50)
--- NOTE | 2022-02-06 14:42 | PC.NURSE ---
post pacer battery up to bathroom with nausea noted emesis small amt. doctor called and chenam called
[2022-02-06] MEDS: metoprolol tartrate 50 mg Tablet 100 MG PO (17:32)
[2022-02-07] VITALS (32 sets, daily range): BP systolic 87–167; BP diastolic 57–90; PULSE 60–82; RESP 10–22; TEMP 36.7; O2SAT 97
--- NOTE | 2022-02-07 06:03 | ECG_ITS ---
[facility] Test Date: 2022-02-07 Pat Name: Maryuri Abernathy Department: Room: ICU11 Gender: Female Nodulizer: : 1960 Requested By: Sultana Montelongo Order Number: [id number] Reading MD: Measurements Intervals [place] Rate: 80 P: -81 DC: 187 QRS: 26 QRSD: 102 T: 109 QT: 376 QTc: 434 Interpretive Statements ECTOPIC ATRIAL RHYTHM LOW QRS VOLTAGE IN PRECORDIAL LEADS [QRS DEFLECTION < 1.0 mV IN CHEST LEADS] MODERATE ST DEPRESSION [0.05+ mV ST DEPRESSION] ABNORMAL QRS-T ANGLE [QRS-T AXIS DIFFERENCE > 60] Compared to ECG 01/06/2022 08:23:06 Low QRS voltage now present ST (T wave) deviation now present T-wave abnormality no longer present Possible ischemia no longer present [email or web address]
--- NOTE | 2022-02-07 07:06 | PM.DCS ---
Discharge Providers Date of Admission: 02/06/22 09:02 Date of Discharge: February 07, 2022 Attending Provider at Admission: Sultana Montelongo MD Attending Provider at Discharge: Sultana Montelongo MD Primary Care Provider: Dominick Abernathy MD Diagnoses at Discharge Discharge Diagnosis (1) Pacemaker at end of battery life: Status: Acute (2) History of mitral valve prosthesis: Status: Acute (3) Prosthetic aortic valve stenosis: Status: Acute (4) History of prosthetic tricuspid valve replacement: Status: Acute (5) Afib: Status: Acute (6) Cardiomyopathy: Status: Acute Qualifiers: Cardiomyopathy type: other Qualified Code(s): I42.8 - Other cardiomyopathies (7) Essential (primary) hypertension: Status: Acute Reason for Visit Reason for Visit: Permanent pacemaker, KEEGAN Brief History: Patient was admitted electively for pacemaker generator change out. Hospital Course Hospital Course The generator was changed out in the area of the left subclavian. No complications. At the time of discharge there is no swelling, redness, hematoma. Physical Exam Narrative: GENERAL: In general she feels well this morning HEENT: Exam within normal limits. NECK: Supple without jugular vein distention. The carotid upstroke is normal without bruits. BACK: Exam normal. LUNGS: Clear. HEART: Regular rate and rhythm. ABDOMEN: Benign without organomegaly or tenderness. EXTREMITIES: No edema. NEUROLOGIC: Exam normal. SKIN: Unremarkable. The pacemaker insertion site is without significant swelling, hematoma or redness infection. Discharge Data Studies Completed and Pending Completed Studies During Hospitalization Category Date Time Status REAL ESTATE LISTING CONSULTANT request for service Routine Exams 02/06/22 06:00 Completed Laboratory Results WBC 8.1 10^3/uL (4.0-10.0) 02/06/22 07:05 RBC 4.01 10^6/uL (4.1-5.3) L 02/06/22 07:05 Hgb 12.5 g/dL (11.5-15.3) 02/06/22 07:05 Hct 37.1 % (37.0-47.0) 02/06/22 07:05 MCV 92.5 fl (81-99) 02/06/22 07:05 MCH 31.2 pg (28.0-34.0) 02/06/22 07:05 MCHC 33.7 g/dL (30.0-36.0) 02/06/22 07:05 RDW 13.1 % (12.1-15.1) 02/06/22 07:05 Plt Count 275 10^3/cmm (130-400) 02/06/22 07:05 MPV 9.8 fL (7.4-10.4) 02/06/22 07:05 Neut % (Auto) 73.3 % 02/06/22 07:05 Lymph % (Auto) 16.0 % 02/06/22 07:05 [place] % (Auto) 6.8 % 02/06/22 07:05 Eos % (Auto) 2.5 % 02/06/22 07:05 Baso % (Auto) 0.7 % 02/06/22 07:05 Neut # (Auto) 5.96 10^3/uL (1.8-7.7) 02/06/22 07:05 Lymph # (Auto) 1.3 10^3/uL (0.8-4.8) 02/06/22 07:05 [place] # (Auto) 0.6 10^3/uL (0.2-0.9) 02/06/22 07:05 Eos # (Auto) 0.2 10^3/uL (0.0-0.8) 02/06/22 07:05 Baso # (Auto) 0.1 10^3/uL (0.0-0.1) 02/06/22 07:05 Nucleated RBC % (auto) 0 % 02/06/22 07:05 Nucleated RBCs # 0.0 /100WBC 02/06/22 07:05 PT 20.8 Seconds (12.0-15.1) H 02/03/22 09:50 INR 1.76 (0.83-1.21) H 02/03/22 09:50 Sodium 139 mmol/L (136-145) 02/03/22 09:50 Potassium 4.9 mmol/L (3.5-5.1) 02/03/22 09:50 Chloride 104 mmol/L (98-107) 02/03/22 09:50 Carbon Dioxide 25 mmol/L (22-29) 02/03/22 09:50 Anion Gap 14.9 (5-19) 02/03/22 09:50 BUN 18 mg/dL (8-23) 02/03/22 09:50 Creatinine 1.0 mg/dL (0.5-0.9) H 02/03/22 09:50 GFR Calculation 56.0 mL/min (90-130) L 02/03/22 09:50 Glucose 105 mg/dL (65-115) 02/03/22 09:50 Calculated Osmolality 290 mOsm/kg (285-295) 02/03/22 09:50 Calcium 9.6 mg/dL (8.5-10.5) 02/03/22 09:50 Procedures Performed Pacemaker generator change out, Dr. Montelongo Vitals Last Vital Signs Temp 98.1 F 02/07/22 04:00 Pulse 78 02/07/22 05:49 Resp 14 02/07/22 04:30 BP 97/64 02/07/22 05:45 Pulse Ox 97 02/07/22 00:00 O2 Del Method 02/07/22 00:00 Discharge Plan Discharge Patient Disposition: Home Condition: Stable Prescriptions: New sulfamethoxazole-trimethoprim [Bactrim DS] 800-160 mg tablet 1 tab PO BID Qty: 8 0RF Continued warfarin 3 mg tablet 3 mg PO DAILY Qty: 90 3RF Hold Instructions: Resume on 12/09/20. Protocol: Dose Management Condition: Wednesday Dose/Route: 4 mg Instruction: 2 x 2 mg tablets Condition: Wednesday Dose/Route: 3 mg Instruction: 1 x 3 mg tablet Condition: Wednesday Dose/Route: 3.5 mg Instruction: 3.5 x 1 mg tablets Condition: Wednesday Dose/Route: 3 mg Instruction: 1 x 3 mg tablet Condition: Dose/Route: 3.5 mg Instruction: 3.5 x 1 mg tablets Condition: Wednesday Dose/Route: 3 mg Instruction: 1 x 3 mg tablet Condition: Wednesday Dose/Route: 3.5 mg Instruction: 3.5 x 1 mg tablets Protocol Text: Adjustment Start Date: Wednesday01/28/22 INR Value: 2.7 INR Date: 01/26/22 Recheck Date: 02/04/22 Rx Instructions: see protocol warfarin 2 mg tablet See Rx Instructions .ROUTE .COMPLEX Qty: 90 3RF Hold Instructions: Resume on 12/09/20. Protocol: Dose Management Condition: Wednesday Dose/Route: 4 mg Instruction: 2 x 2 mg tablets Condition: Wednesday Dose/Route: 3 mg Instruction: 1 x 3 mg tablet Condition: Wednesday Dose/Route: 3.5 mg Instruction: 3.5 x 1 mg tablets Condition: Wednesday Dose/Route: 3 mg Instruction: 1 x 3 mg tablet Condition: Dose/Route: 3.5 mg Instruction: 3.5 x 1 mg tablets Condition: Wednesday Dose/Route: 3 mg Instruction: 1 x 3 mg tablet Condition: Wednesday Dose/Route: 3.5 mg Instruction: 3.5 x 1 mg tablets Protocol Text: Adjustment Start Date: Wednesday01/28/22 INR Value: 2.7 INR Date: 01/26/22 Recheck Date: 02/04/22 Dose Instruction: TAKE 1 TABLET BY MOUTH DIRECTED PER INR Rx Instructions: TAKE 1 TABLET BY MOUTH DIRECTED PER INR metoprolol tartrate 100 mg tablet 100 mg PO BID Qty: 180 3RF Rx Instructions: Do not discontinue unless approved per Dr Montelongo. diltiazem HCl 360 mg capsule,extended release 24hr 360 mg PO DAILY Qty: 90 3RF lisinopril 40 mg tablet 40 mg PO DAILY Qty: 90 3RF warfarin 1 mg tablet 1 mg PO DIRECTED Qty: 90 3RF Hold Instructions: Resume on 12/09/20. Protocol: Dose Management Condition: Wednesday Dose/Route: 4 mg Instruction: 2 x 2 mg tablets Condition: Wednesday Dose/Route: 3 mg Instruction: 1 x 3 mg tablet Condition: Wednesday Dose/Route: 3.5 mg Instruction: 3.5 x 1 mg tablets Condition: Wednesday Dose/Route: 3 mg Instruction: 1 x 3 mg tablet Condition: Dose/Route: 3.5 mg Instruction: 3.5 x 1 mg tablets Condition: Wednesday Dose/Route: 3 mg Instruction: 1 x 3 mg tablet Condition: Wednesday Dose/Route: 3.5 mg Instruction: 3.5 x 1 mg tablets Protocol Text: Adjustment Start Date: Wednesday01/28/22 INR Value: 2.7 INR Date: 01/26/22 Recheck Date: 02/04/22 amlodipine 2.5 mg tablet 2.5 mg PO DAILY Qty: 90 3RF aspirin [Aspir-81] 81 mg Tablet,Delayed Release (Dr/Ec) 81 mg PO DAILY Held enoxaparin [Lovenox] 80 mg/0.8 mL syringe 80 mg SUBCUT DAILY Qty: 3.2 0RF Hold Instructions: Resume on 02/08/22. May start Lovenox on wednesday . Take it on Wednesday AM, PM; Wednesday AM and PM and then do an INR on Wednesday Rx Instructions: Start tonight: Inject 60mg (0.6ml) every evening and 80mg (0.8ml) every morning stop after Discharge Orders: Discharge Order (Routine); Ordered 02/07/22 Ordered By: Cristian Healy Referrals: Liset Ramsey FNP [Nurse Practitioner] - 02/12/22 (PM check) Discharge Diet: Cardiac Discharge Activity: Limit activity as instructed Patient Instructions: Pacemaker (DC), Opioid Safety, Post Pacemaker - Reginald Activity Restrictions/Additional Instructions: Do not lift left arm above the level of the shoulder until seen again. Leave bandage on until seen again on . Do not get bandage wet. Discharge Attestations Time Spent in Discharge Care*: less than 30 min Quality Metrics Clinical Quality Measures [ No reported AMI, CVA or VTE this stay] Coding Level of Care Code Established Pt Acute Chg FW DC note Patient Type Established History Detailed Exam Detailed Medical Decision Making Moderate Complexity Diagnoses Pacemaker at end of battery life Z45.010 History of mitral valve prosthesis Z95.2 Prosthetic aortic valve stenosis T82.857A History of prosthetic tricuspid valve replacement Z95.2 Afib I48.91 Cardiomyopathy I42.8 Cardiomyopathy type: other Essential (primary) hypertension I10
--- NOTE | 2022-02-07 08:01 | PC.NURSE ---
Dr Healy here medtronic pacer check done with good results for discharge this am .
[2022-02-07] MEDS: aspirin 81 mg EC Tablet PO (08:21)
[2022-02-07] MEDS: amlodipine 5 mg Tablet 2.5 MG PO (08:22)
[2022-02-07] MEDS: lisinopril 20 mg Tablet 40 MG PO (08:22)
[2022-02-07] MEDS: metoprolol tartrate 50 mg Tablet 100 MG PO (08:22)
[2022-02-07] MEDS: dilTIAZem ER (24HR) 120 mg Capsule 360 MG PO (08:22)
== END 2022-02-07 08:59 | disposition home or self-care (01) ==
LOC: CCL 07:17 → ICU 09:06
PROVIDERS: PCP Internal Medicine; Visit Provider Internal Medicine Cardiovascular Disease
DX: Z45.010 Encounter for checking and testing of cardiac pacemaker pulse generator [battery] (principal); I10 Essential (primary) hypertension; T82.857A Stenosis of other cardiac prosthetic devices, implants and grafts, initial encounter; Z95.2 Presence of prosthetic heart valve
CPT/HCPCS: 33213; 36415; 80048; 85025; 85610; 93005; 96360; 97166; 99152; 99153; C1769; C1786; G0378; J2250; J2405; J3010; J3370; J3490; J7030; J7050; J7799

== ENCOUNTER → 2022-02-12 08:59 | Outpatient (BNVA) | payer MEDICARE, SELFPAY | PROVIDERS: PCP Internal Medicine; Visit Provider Nurse Practitioner Family | DX: I48.91 Unspecified atrial fibrillation (principal); Z95.0 Presence of cardiac pacemaker | CPT/HCPCS: 99213; 99214 ==

== ENCOUNTER → 2022-03-20 08:25 | Outpatient (BNVA) | payer MEDICARE, SELFPAY | PROVIDERS: PCP Internal Medicine; Visit Provider Nurse Practitioner Family | DX: I48.91 Unspecified atrial fibrillation (principal); Z79.01 Long term (current) use of anticoagulants; Z95.0 Presence of cardiac pacemaker; Z79.82 Long term (current) use of aspirin | CPT/HCPCS: 99214 ==

== ENCOUNTER → 2022-03-27 09:12 | Outpatient (BNVA) | payer MEDICARE, SELFPAY | PROVIDERS: PCP Internal Medicine; Visit Provider Nurse Practitioner Family | DX: Z95.0 Presence of cardiac pacemaker (principal) | CPT/HCPCS: 93280; 99213 ==

== ENCOUNTER → 2022-05-20 14:20 | Outpatient (BNVA) | payer MEDICARE, SELFPAY | PROVIDERS: PCP Internal Medicine; Visit Provider Urology | DX: C67.9 Malignant neoplasm of bladder, unspecified (principal) | CPT/HCPCS: 52000; 81003 ==

== ENCOUNTER 2022-08-26 11:04 | Outpatient (CLI) | payer MEDICARE, SELFPAY ==
--- NOTE | 2022-08-26 11:00 | USCV_ITS ---
Maryuri Abernathy Age: 61 Gender: F : 1960 Exam Date: 08/26/2022 11:32 Ordering Phys: Sultana Montelongo MD ([email or web address]) Technologist: CAMMIE [place] [facility] [place]ication: MITRAL, AO, AND TRI REPLACMENT BP: 154 / 90 HR: 82 Rhythm: Sinus Technical Quality: Adequate MEASUREMENTS (Male / Female) Normal Values 2D ECHO LVOT Diameter 2.0 cm LV Ejection Fraction MOD 2C 55.7 % LV Ejection Fraction 2C AL 55.3 % LA Diameter 3.5 cm LA Width 3.5 cm LA Height 5.3 cm RA Width 3.0 cm RA Height 4.3 cm Aorta at Sinotubular Diameter 2.3 cm IVC Diameter 1.8 cm M-MODE Aortic Annulus Diameter 1.9 cm LA Ao Ratio MM 1.5 DOPPLER AV Peak Velocity 308.3 cm/s LVOT Peak Velocity 91.0 cm/s AV Area Cont Eq vti 1.0 cm squared AV Area Cont Eq pk 0.9 cm squared MV Peak Velocity 197.0 cm/s MV Area PHT 3.8 cm squared Mitral E to A Ratio 1.7 MV E' Velocity 104.5 cm/s Mitral E to MV E' Ratio 18.8 Mitral E to LV E' Lateral Ratio 18.8 Mitral E to LV E' Septal Ratio 19.0 TR Peak Velocity 245.2 cm/s TR Peak Gradient 24.0 mmHg TR Mean Velocity 233.7 cm/s TR Mean Gradient 26.4 mmHg TR Velocity Time Integral 82.9 cm TV Peak E Velocity 153.0 cm/s Right Atrial Pressure 3.0 mmHg Pulmonary Artery Systolic Pressu 27.0 mmHg PV Peak Velocity 92.0 cm/s RV Acceleration Time 0.1 s RV Ejection Time 0.3 s RV AcT/ET 0.3 FINDINGS Left Ventricle Normal left ventricular size and systolic function, EF 55 %. Hypokinetic basal septal segment. Right Ventricle Left ventricular ejection fraction is diminished Right Atrium Moderately increased right atrial size. Left Atrium Moderately increased left atrial size. Mitral Valve Prosthetic valve the mitral position appears to be well-seated. The mitral valve area was calculated to be 3.8 cm squire. Aortic Valve The aortic valve prosthesis also appears to be well-seated the peak velocity across the aortic root is 3.1 m/s with a peak gradient of 39 mmHg. Valve area is 1.0 cm squared. The aortic valve Doppler study is suboptimal quality. Tricuspid Valve The bioprosthetic valve at the level of the tricuspid valve was found to be well-seated. The peak gradient across the tricuspid valve was 9 mmHg with a peak gradient of 5 mmHg. He trace tricuspid valve regurgitation. Pulmonic Valve Pulmonic valve not well visualized. Pericardium No pericardial effusion. Aorta Normal aortic annulus size. IVC Inferior vena cava not visualized. CONCLUSIONS Normal left ventricular size and systolic function, EF 55 %. Hypokinetic basal septal segment. Moderate biatrial enlargementProsthetic valve the mitral position appears to be well-seated. The mitral valve area was calculated to be 3.8 cm squared. The aortic valve prosthesis also appears to be well-seated the peak velocity across the aortic root is 3.1 m/s with a peak gradient of 39 mmHg. Valve area was 1.0 cm squared. The aortic valve Doppler study is suboptimal quality. The bioprosthesis at the level of the tricuspid valve was found to be well-seated. The peak gradient across the tricuspid valve was 9 mmHg with a peak gradient of 5 mmHg. Trace of tricuspid valve regurgitation. Estimated pulmonary artery peak systolic pressure was 27 mmHg There is no pericardial effusion. Compared to the study from 12/05/2021, the aortic valve stenosis appears to be less severe and the LV ejection fraction within normal limits. Dr Sultana Montelongo MD [facility] (Electronically Signed) Final Date: 28 Aug 2022 15:27 S
== END 2022-08-26 11:05 | disposition home or self-care (01) ==
LOC: RAD 11:07
PROVIDERS: PCP Internal Medicine; Visit Provider Internal Medicine Cardiovascular Disease
DX: I42.8 Other cardiomyopathies (principal); I48.20 Chronic atrial fibrillation, unspecified; I50.9 Heart failure, unspecified; R06.02 Shortness of breath; Z95.2 Presence of prosthetic heart valve
CPT/HCPCS: 36415; 80048; 83880; 93306; 99214

== ENCOUNTER → 2022-10-05 09:26 | Outpatient (BNVA) | payer MEDICARE, SELFPAY | PROVIDERS: PCP Internal Medicine; Visit Provider Urology | DX: C67.9 Malignant neoplasm of bladder, unspecified (principal) | CPT/HCPCS: 81003 ==

== ENCOUNTER → 2023-01-13 10:14 | Outpatient (BNVA) | payer MEDICARE, SELFPAY | PROVIDERS: PCP Internal Medicine; Visit Provider Internal Medicine Cardiovascular Disease | DX: I11.0 Hypertensive heart disease with heart failure (principal); I50.9 Heart failure, unspecified; I48.20 Chronic atrial fibrillation, unspecified; Z79.01 Long term (current) use of anticoagulants; Z79.82 Long term (current) use of aspirin; I42.8 Other cardiomyopathies; Z95.0 Presence of cardiac pacemaker; Z95.2 Presence of prosthetic heart valve; T82.857A Stenosis of other cardiac prosthetic devices, implants and grafts, initial encounter; Y71.2 Prosthetic and other implants, materials and accessory cardiovascular devices associated with adverse incidents; E78.2 Mixed hyperlipidemia; E03.9 Hypothyroidism, unspecified | CPT/HCPCS: 99214 ==

== ENCOUNTER → 2023-06-25 09:23 | Outpatient (BNVA) | payer MEDICARE, SELFPAY | PROVIDERS: PCP Internal Medicine; Visit Provider Internal Medicine Cardiovascular Disease | DX: Z53.9 Procedure and treatment not carried out, unspecified reason (principal) | CPT/HCPCS: 93280 ==

== ENCOUNTER → 2023-08-03 10:43 | Outpatient (BNVA) | payer MEDICARE, SELFPAY | PROVIDERS: PCP Internal Medicine; Visit Provider Internal Medicine Cardiovascular Disease | DX: R06.02 Shortness of breath (principal) | CPT/HCPCS: 36415; 80048; 83880 ==

== ENCOUNTER → 2024-02-03 10:02 | Outpatient (BNVA) | payer MEDICARE, SELFPAY | PROVIDERS: PCP Internal Medicine; Visit Provider Internal Medicine Cardiovascular Disease | DX: I42.8 Other cardiomyopathies (principal); E78.2 Mixed hyperlipidemia; Z95.0 Presence of cardiac pacemaker; T82.857A Stenosis of other cardiac prosthetic devices, implants and grafts, initial encounter; Y99.8 Other external cause status; Z95.2 Presence of prosthetic heart valve; I48.20 Chronic atrial fibrillation, unspecified; I11.0 Hypertensive heart disease with heart failure; I50.32 Chronic diastolic (congestive) heart failure; Z87.891 Personal history of nicotine dependence; Z79.01 Long term (current) use of anticoagulants | CPT/HCPCS: 99214 ==

== ENCOUNTER → 2024-04-14 09:38 | Outpatient (BNVA) | payer MEDICARE, SELFPAY | PROVIDERS: PCP Internal Medicine; Visit Provider Internal Medicine Cardiovascular Disease | DX: Z45.018 Encounter for adjustment and management of other part of cardiac pacemaker (principal) | CPT/HCPCS: 93280 ==

== ENCOUNTER → 2025-04-11 12:33 | Outpatient (BNVA) | payer MEDICARE, SELFPAY | PROVIDERS: PCP Internal Medicine; Visit Provider Internal Medicine Cardiovascular Disease | DX: Z45.018 Encounter for adjustment and management of other part of cardiac pacemaker (principal) | CPT/HCPCS: 93296 ==